=== PATIENT | female | born 1950 | race Caucasian/White ===

== ENCOUNTER 2019-03-15 11:45 | Inpatient (IN) | payer MEDICARE, OTHER ==
[~2019-03-15] VITALS: Ht 165.1 cm; Wt 111.5 kg
[~2019-03-15 11:45] MED LIST: ADV50250 IH; ALBU6.7H9 INH; ALLO100T PO; ASPI-1265 PO; ATOR40TA PO; BENA1TAB14 PO; CALC600T12 PO; ESOM40CA PO; FENO200C PO; FEXO-124 PO; FLUT16SP10; FURO-150 PO; HYDROCODONE PO; INSU100I8 SQ; LANTUS SQ; LEVO75TA PO; MONT10TA21 PO; MULT-1085 PO; POTA10TA10 PO; TETR15DR84 EACHEYE; VITC500T PO
[2019-03-15 12:34] LABS: BASOPHILS % (AUTO) 0.3 % (0-1); EOSINOPHILS % (AUTO) 0.6 % (0-6); HEMATOCRIT 44.5 % (35.0-45.0); HEMOGLOBIN 15.3 g/dl (12.0-16.0); LYMPHOCYTES # (AUTO) 2.1 X10'3 (1.1-4.8); LYMPHOCYTES % (AUTO) 28.7 % (21-51); MEAN CORPUSCULAR HEMOGLOBIN 32.3 PG (27.0-31.0); MEAN CORPUSCULAR HGB CONC 34.3 g/dL (33.0-36.5); MEAN CORPUSCULAR VOLUME 94.2 FL (78-98); MEAN PLATELET VOLUME 6.9 FL (7.4-10.4); MONOCYTES # (AUTO) 0.7 X10'3 (0-0.9); NEUTROPHILS # (AUTO) 4.6 X10'3 (1.8-7.7); NEUTROPHILS % (AUTO) 61.4 % (42-75); PLATELET COUNT 594 X10'3 (140-440); RED BLOOD COUNT 4.72 X10'6 (4.20-5.60); RED CELL DISTRIBUTION WIDTH 14.4 % (11.5-14.5); WHITE BLOOD COUNT 7.5 X10'3 (4.5-11.0)
[2019-03-15 12:47] LABS: ALANINE AMINOTRANSFERASE 24 U/L (12-78); ALBUMIN 3.5 G/DL (3.4-5.0); ALBUMIN/GLOBULIN RATIO 0.9 (1.1-1.5); ALKALINE PHOSPHATASE 86 IU/L (46-116); ANION GAP 11 (8-16); ASPARTATE AMINO TRANSFERASE 17 U/L (10-37); BLOOD UREA NITROGEN 41 MG/DL (7-18); BUN/CREATININE RATIO 19.1 (6.6-38.0); CALCIUM 10.2 MG/DL (8.5-10.1); CHLORIDE 98 MMOL/L (99-107); CREATININE 2.15 MG/DL (0.40-0.90); GLUCOSE 250 MG/DL (70-104); LIPASE 180 U/L (73-393); POTASSIUM 5.4 MMOL/L (3.5-5.1); SODIUM 131 MMOL/L (135-145); TOTAL PROTEIN 7.6 G/DL (6.4-8.2); eGFR 23 ML/MIN
[2019-03-15] MEDS ORDERED: normal saline 1000ml 1,000 ML IV ONE (14:20)
[2019-03-15] MEDS ORDERED: ondansetron/PF 4mg/2ml inj IV ONE (14:20)
[2019-03-15 17:45] LABS: PARTIAL THROMBOPLASTIN TIME 23 SECONDS (22-32)
[2019-03-15] MEDS ORDERED: potassium Cl 20 mEq SR tablet PO PRN ×2 (18:25)
[2019-03-15] MEDS ORDERED: magnesium 2GM in 50ml NS 50 ML IV PRN (18:25)
[2019-03-15] MEDS ORDERED: magnesium Cl slow-release 64mg tablet PO PRN (18:25)
[2019-03-15] MEDS ORDERED: potassium CL 10mEq/100ml bag 100 ML IV PRN ×2 (18:25)
[2019-03-15] MEDS ORDERED: mag hydrox/Alum hydrox/simeth 30ml oral suspension PO PRN (18:25)
[2019-03-15] MEDS ORDERED: HYDROmorphone 1 mg/ml syringe IV PRN (18:25)
[2019-03-15] MEDS ORDERED: magnesium 4gm in 100ml NS 100 ML IV PRN (18:25)
[2019-03-15] MEDS ORDERED: magnesium hydroxide 30ml (MOM) UD suspension PO PRN (18:25)
[2019-03-15] MEDS ORDERED: acetaminophen 325mg tablet PO PRN (18:25)
[2019-03-15] MEDS ORDERED: bisacodyl 10mg suppository rectal RC PRN (18:25)
[2019-03-15] MEDS ORDERED: CALC1TAB41 PO (18:36)
[2019-03-15] MEDS: ringers solution, lacted 1,000 ML IV SCH (18:44)
--- NOTE | 2019-03-15 19:05 | NUR ---
PER PATIENT DR POSADAS STATED NO NASAL GASTRIC TUBE INSERTION IS NEEDED AT THIS TIME.
[2019-03-15] MEDS ORDERED: DULA0.75 SQ (19:08)
[2019-03-15] MEDS ORDERED: CARB15DR2 EACHEYE (19:09)
[2019-03-15] MEDS ORDERED: KETO5DRO75 EACHEYE (19:10)
[2019-03-15] MEDS ORDERED: PANT40TA4 PO (19:15)
[2019-03-15] MEDS: hydrALAZINE 20mg/ml inj. IV SCH (20:00)
[2019-03-15 20:30] VITALS: BP 144/75
[2019-03-15] MEDS ORDERED: temazepam 15mg capsule PO PRN (21:00)
[2019-03-15 22:00] VITALS: BP 135/76
[2019-03-15] MEDS: ondansetron/PF 4mg/2ml inj IV PRN (22:29)
[2019-03-15] MEDS: HYDROmorphone inj. 0.5 MG/0.5 ML DISP.SYRIN IV PRN (22:41)
[2019-03-15] MEDS ORDERED: MESSAGE TO PHARMACY PO ONE (23:15)
[2019-03-15] MEDS ORDERED: dextrose 50%-water 50ml dispensing syringe IV PRN ×2 (23:15)
[2019-03-15] MEDS ORDERED: dextrose ORAL solution 15 GM/59 ML bottle PO PRN ×2 (23:15)
[2019-03-15] MEDS ORDERED: glucagon, human recombinant 1mg kit SUBCUT PRN (23:15)
[2019-03-16 02:00] VITALS: BP 120/73
[2019-03-16] MEDS: hydrALAZINE 20mg/ml inj. IV SCH ×4 (02:00→20:00)
[2019-03-16] MEDS: ondansetron/PF 4mg/2ml inj IV PRN ×3 (05:01→19:37)
[2019-03-16] MEDS: ringers solution, lacted 1,000 ML IV SCH ×2 (05:11→16:31)
[2019-03-16] MEDS: HYDROmorphone inj. 0.5 MG/0.5 ML DISP.SYRIN IV PRN ×4 (05:15→20:31)
[2019-03-16 06:00] VITALS: BP 117/60
[2019-03-16 06:28] LABS: ALANINE AMINOTRANSFERASE 21 U/L (12-78); ALBUMIN 2.7 G/DL (3.4-5.0); ALBUMIN/GLOBULIN RATIO 0.8 (1.1-1.5); ALKALINE PHOSPHATASE 73 IU/L (46-116); ANION GAP 9 (8-16); ASPARTATE AMINO TRANSFERASE 22 U/L (10-37); BILIRUBIN,TOTAL 0.9 MG/DL (0.1-1.0); BLOOD UREA NITROGEN 32 MG/DL (7-18); BUN/CREATININE RATIO 22.2 (6.6-38.0); CALCIUM 9.1 MG/DL (8.5-10.1); CHLORIDE 101 MMOL/L (99-107); CREATININE 1.44 MG/DL (0.40-0.90); GLUCOSE 222 MG/DL (70-104); MAGNESIUM 1.5 MG/DL (1.5-2.4); PHOSPHORUS 2.9 MG/DL (2.3-4.5); POTASSIUM 5.1 MMOL/L (3.5-5.1); SODIUM 132 MMOL/L (135-145); TOTAL CARBON DIOXIDE 22.3 MMOL/L (24-32); TOTAL PROTEIN 5.9 G/DL (6.4-8.2); eGFR 36 ML/MIN
[2019-03-16 06:32] LABS: BASOPHILS % (AUTO) 0.3 % (0-1); EOSINOPHILS # (AUTO) 0.1 X10'3 (0-0.9); EOSINOPHILS % (AUTO) 1.3 % (0-6); HEMATOCRIT 37.8 % (35.0-45.0); HEMOGLOBIN 13.1 g/dl (12.0-16.0); LYMPHOCYTES % (AUTO) 31.3 % (21-51); MEAN CORPUSCULAR HEMOGLOBIN 32.4 PG (27.0-31.0); MEAN CORPUSCULAR HGB CONC 34.8 g/dL (33.0-36.5); MEAN CORPUSCULAR VOLUME 93.2 FL (78-98); MEAN PLATELET VOLUME 7.1 FL (7.4-10.4); MONOCYTES # (AUTO) 0.6 X10'3 (0-0.9); MONOCYTES % (AUTO) 9.4 % (2-12); NEUTROPHILS # (AUTO) 3.7 X10'3 (1.8-7.7); NEUTROPHILS % (AUTO) 57.7 % (42-75); PLATELET COUNT 427 X10'3 (140-440); RED BLOOD COUNT 4.05 X10'6 (4.20-5.60); RED CELL DISTRIBUTION WIDTH 14.4 % (11.5-14.5); WHITE BLOOD COUNT 6.5 X10'3 (4.5-11.0)
[2019-03-16 06:59] LABS: HEMOGLOBIN A1C 7.9 % (4.5-6.2)
--- NOTE | 2019-03-16 07:11 | NUR ---
Patient in room ORTHO 4014. I have received report from Alexus STONE and had the opportunity to ask questions and assume patient care.
[2019-03-16 08:00] VITALS: BP 113/66
[2019-03-16] MEDS: K and/or MAG REPLACEMENT MC SCH (08:00)
[2019-03-16] MEDS: pantoprazole 40 MG vial IV SCH (08:14)
--- NOTE | 2019-03-16 08:30 | NUR ---
PAGED RESP TO COME AND GIVE RESP TREATMENT
[2019-03-16] MEDS: albuterol 2.5 MG/3 ML nebule NEB SCH ×3 (08:36→19:48)
[2019-03-16] MEDS: budesonide 0.5mg/2ml UD nebule IH SCH ×2 (08:36→19:48)
[2019-03-16] MEDS: insulin Lispro (HumaLOG) vial - multi-dose SQ SCH ×3 (08:50→21:25)
[2019-03-16 09:33] VITALS: BP 120/62
--- NOTE | 2019-03-16 10:36 | NUR ---
Student documentation: I have reviewed all interventions, assessments performed and documented by Manolo Liz. Student Medication Administration: For this medication-pass time frame, all medication were reviewed, dispensed, administered and documented per hospital policy by Manolo Liz.
--- NOTE | 2019-03-16 12:36 | NUR ---
I have reviewed and agree with all medications administered and interventions performed by [facility] Student(SKYLA PEDRAZA)
[2019-03-16 13:34] VITALS: BP 115/65
--- NOTE | 2019-03-16 17:09 | NUR ---
Patient given written DM education handout with verbal review and referral to outpatient DM education class on Wednesday. Pt given written RD contact information. Addendum: 03/16/19 at [address] Amended: Links added.
--- NOTE | 2019-03-16 18:22 | NUR ---
Problems reprioritized. Patient report given, questions answered & plan of care reviewed with Jeffrey STONE.
--- NOTE | 2019-03-16 19:00 | NUR ---
Patient in room ORTHO 4014. I have received report from Travis STONE and had the opportunity to ask questions and assume patient care.
[2019-03-17] MEDS: ringers solution, lacted 1,000 ML IV SCH ×3 (00:30→20:30)
[2019-03-17] MEDS: hydrALAZINE 20mg/ml inj. IV SCH ×4 (02:00→20:28)
[2019-03-17] MEDS: albuterol 2.5 MG/3 ML nebule NEB SCH ×3 (03:46→19:55)
[2019-03-17] MEDS: ondansetron/PF 4mg/2ml inj IV PRN ×2 (04:06→12:03)
[2019-03-17] MEDS: HYDROmorphone inj. 0.5 MG/0.5 ML DISP.SYRIN IV PRN ×4 (04:09→17:11)
[2019-03-17 05:52] LABS: BASOPHILS % (AUTO) 0.6 % (0-1); EOSINOPHILS # (AUTO) 0.1 X10'3 (0-0.9); EOSINOPHILS % (AUTO) 1.2 % (0-6); HEMATOCRIT 36.5 % (35.0-45.0); HEMOGLOBIN 12.8 g/dl (12.0-16.0); LYMPHOCYTES # (AUTO) 1.7 X10'3 (1.1-4.8); LYMPHOCYTES % (AUTO) 30.1 % (21-51); MEAN CORPUSCULAR HEMOGLOBIN 32.8 PG (27.0-31.0); MEAN CORPUSCULAR HGB CONC 35.1 g/dL (33.0-36.5); MEAN CORPUSCULAR VOLUME 93.5 FL (78-98); MEAN PLATELET VOLUME 6.8 FL (7.4-10.4); MONOCYTES # (AUTO) 0.6 X10'3 (0-0.9); MONOCYTES % (AUTO) 11.4 % (2-12); NEUTROPHILS # (AUTO) 3.2 X10'3 (1.8-7.7); NEUTROPHILS % (AUTO) 56.7 % (42-75); PLATELET COUNT 441 X10'3 (140-440); RED BLOOD COUNT 3.91 X10'6 (4.20-5.60); RED CELL DISTRIBUTION WIDTH 14.3 % (11.5-14.5); WHITE BLOOD COUNT 5.7 X10'3 (4.5-11.0)
[2019-03-17 05:53] LABS: ALANINE AMINOTRANSFERASE 21 U/L (12-78); ALBUMIN 2.7 G/DL (3.4-5.0); ALBUMIN/GLOBULIN RATIO 0.8 (1.1-1.5); ALKALINE PHOSPHATASE 77 IU/L (46-116); ANION GAP 9 (8-16); ASPARTATE AMINO TRANSFERASE 23 U/L (10-37); BILIRUBIN,TOTAL 0.6 MG/DL (0.1-1.0); BLOOD UREA NITROGEN 29 MG/DL (7-18); BUN/CREATININE RATIO 20.6 (6.6-38.0); CALCIUM 8.8 MG/DL (8.5-10.1); CHLORIDE 102 MMOL/L (99-107); CREATININE 1.41 MG/DL (0.40-0.90); GLUCOSE 141 MG/DL (70-104); MAGNESIUM 1.5 MG/DL (1.5-2.4); PHOSPHORUS 3.7 MG/DL (2.3-4.5); POTASSIUM 4.7 MMOL/L (3.5-5.1); SODIUM 134 MMOL/L (135-145); TOTAL CARBON DIOXIDE 22.8 MMOL/L (24-32); TOTAL PROTEIN 5.9 G/DL (6.4-8.2); eGFR 37 ML/MIN
[2019-03-17 06:10] VITALS: BP 124/68
--- NOTE | 2019-03-17 06:30 | NUR ---
I received patient report from Jeffrey STONE
[2019-03-17] MEDS: K and/or MAG REPLACEMENT MC SCH (08:00)
[2019-03-17] MEDS: insulin Lispro (HumaLOG) vial - multi-dose SQ SCH ×3 (08:40→17:21)
[2019-03-17] MEDS: metoclopramide 5 mg/ml inj IV PRN ×2 (08:46→17:10)
[2019-03-17] MEDS: pantoprazole 40 MG vial IV SCH (08:59)
[2019-03-17] MEDS: budesonide 0.5mg/2ml UD nebule IH SCH ×2 (09:21→19:55)
[2019-03-17 10:00] VITALS: BP 121/52
[2019-03-17] MEDS ORDERED: diatrozoate meglu/diatrozoate sod (37% iodine) 120ML oral solution ONE (11:17)
[2019-03-17 18:00] VITALS: BP 137/68
--- NOTE | 2019-03-17 18:29 | NUR ---
Patient report given to Jeffrey STONE
--- NOTE | 2019-03-17 19:00 | NUR ---
Patient in room ORTHO 4014. I have received report from Ann-Marie STONE and had the opportunity to ask questions and assume patient care.
[2019-03-17 22:00] VITALS: BP 96/76
[2019-03-18] VITALS (10 sets, daily range): BP systolic 96–169; BP diastolic 40–97
[2019-03-18] MEDS: ondansetron/PF 4mg/2ml inj IV PRN ×2 (00:45→07:43)
[2019-03-18] MEDS: HYDROmorphone inj. 0.5 MG/0.5 ML DISP.SYRIN IV PRN ×4 (00:48→19:13)
[2019-03-18] MEDS: albuterol 2.5 MG/3 ML nebule NEB SCH ×4 (01:51→19:20)
[2019-03-18] MEDS: hydrALAZINE 20mg/ml inj. IV SCH ×4 (02:00→19:56)
[2019-03-18 06:26] LABS: BASOPHILS % (AUTO) 0.5 % (0-1); HEMATOCRIT 35.9 % (35.0-45.0); HEMOGLOBIN 12.5 g/dl (12.0-16.0); LYMPHOCYTES # (AUTO) 1.2 X10'3 (1.1-4.8); LYMPHOCYTES % (AUTO) 30.4 % (21-51); MEAN CORPUSCULAR HEMOGLOBIN 32.8 PG (27.0-31.0); MEAN CORPUSCULAR HGB CONC 34.7 g/dL (33.0-36.5); MEAN CORPUSCULAR VOLUME 94.7 FL (78-98); MEAN PLATELET VOLUME 6.9 FL (7.4-10.4); MONOCYTES # (AUTO) 0.5 X10'3 (0-0.9); MONOCYTES % (AUTO) 12.4 % (2-12); NEUTROPHILS # (AUTO) 2.2 X10'3 (1.8-7.7); NEUTROPHILS % (AUTO) 55.7 % (42-75); PLATELET COUNT 386 X10'3 (140-440); RED CELL DISTRIBUTION WIDTH 14.4 % (11.5-14.5); WHITE BLOOD COUNT 3.9 X10'3 (4.5-11.0)
--- NOTE | 2019-03-18 06:30 | NUR ---
Patient in room ORTHO 4014. I have received report from Jeffrey STONE and had the opportunity to ask questions and assume patient care.
[2019-03-18 06:43] LABS: ALANINE AMINOTRANSFERASE 15 U/L (12-78); ALBUMIN 2.5 G/DL (3.4-5.0); ALBUMIN/GLOBULIN RATIO 0.8 (1.1-1.5); ALKALINE PHOSPHATASE 79 IU/L (46-116); ANION GAP 11 (8-16); ASPARTATE AMINO TRANSFERASE 20 U/L (10-37); BILIRUBIN,TOTAL 0.7 MG/DL (0.1-1.0); BLOOD UREA NITROGEN 26 MG/DL (7-18); CALCIUM 8.7 MG/DL (8.5-10.1); CHLORIDE 102 MMOL/L (99-107); GLUCOSE 167 MG/DL (70-104); MAGNESIUM 1.5 MG/DL (1.5-2.4); PHOSPHORUS 3.5 MG/DL (2.3-4.5); POTASSIUM 4.4 MMOL/L (3.5-5.1); SODIUM 135 MMOL/L (135-145); TOTAL CARBON DIOXIDE 21.8 MMOL/L (24-32); TOTAL PROTEIN 5.7 G/DL (6.4-8.2); eGFR 41 ML/MIN
[2019-03-18] MEDS: budesonide 0.5mg/2ml UD nebule IH SCH ×2 (07:42→19:20)
[2019-03-18] MEDS: ringers solution, lacted 1,000 ML IV SCH ×2 (07:57→19:55)
[2019-03-18] MEDS: K and/or MAG REPLACEMENT MC SCH (08:00)
[2019-03-18] MEDS: pantoprazole 40 MG vial IV SCH (08:00)
[2019-03-18] MEDS ORDERED: mineral oil 133ml enema RC ONE (08:40)
[2019-03-18] MEDS: insulin Lispro (HumaLOG) vial - multi-dose SQ SCH ×3 (09:16→19:29)
[2019-03-18] MEDS: metoclopramide 5 mg/ml inj IV PRN ×2 (12:36→19:13)
[2019-03-18] MEDS ORDERED: mineral oil 133ml enema RC SCH (14:40)
--- NOTE | 2019-03-18 14:42 | NUR ---
Malnutrition consult: Pt seen at bedside reports UBW 235 lbs and reports 20 lb wt loss over the last month. Only wt hx in EMR is 198 lbs in March 2016. If pt truly lost 20 lbs this is severe wt loss of 8% in 1 month. Pt reports wt loss is secondary to N/V and diarrhea. Pt reports some N at this time, receiving Zofran PRN last given today. Unable to assess PO intake at this time given patient's NPO status however pt endorses a good appetite. Pt with no significant decrease in muscle strength or edema and with no visible fat or muscle wasting. Pt currently lacks a minimum of two criteria for malnutrition. Will continue to follow. Addendum: 03/18/19 at [address] Amended: Links added.
[2019-03-18] MEDS ORDERED: fentaNYL/PF 50MCG/1 ML 2ML syringe ONE (16:04)
[2019-03-18] MEDS ORDERED: MIDAZolam 5mg/5ml vial ONE (16:04)
--- NOTE | 2019-03-18 18:51 | NUR ---
Patient report given to Shawnee STONE
--- NOTE | 2019-03-18 19:37 | NUR ---
Patient in room ORTHO 4014. I have received report from BERTHA Wooten and had the opportunity to ask questions and assume patient care.
[2019-03-19] VITALS (7 sets, daily range): BP systolic 113–188; BP diastolic 52–90
[2019-03-19] MEDS: HYDROmorphone inj. 0.5 MG/0.5 ML DISP.SYRIN IV PRN ×6 (02:42→23:51)
[2019-03-19] MEDS: hydrALAZINE 20mg/ml inj. IV SCH ×4 (02:42→19:22)
[2019-03-19] MEDS: metoclopramide 5 mg/ml inj IV PRN ×3 (02:42→23:57)
[2019-03-19] MEDS: ringers solution, lacted 1,000 ML IV SCH (05:25)
--- NOTE | 2019-03-19 06:05 | NUR ---
received report from sharon pimentel
--- NOTE | 2019-03-19 06:30 | NUR ---
Problems reprioritized. Patient report given, questions answered & plan of care reviewed with BERTHA Bravo.
[2019-03-19 06:49] LABS: BASOPHILS % (AUTO) 0.4 % (0-1); EOSINOPHILS % (AUTO) 1.2 % (0-6); HEMATOCRIT 35.5 % (35.0-45.0); HEMOGLOBIN 12.3 g/dl (12.0-16.0); LYMPHOCYTES # (AUTO) 0.8 X10'3 (1.1-4.8); LYMPHOCYTES % (AUTO) 23.5 % (21-51); MEAN CORPUSCULAR HEMOGLOBIN 32.7 PG (27.0-31.0); MEAN CORPUSCULAR HGB CONC 34.5 g/dL (33.0-36.5); MEAN CORPUSCULAR VOLUME 94.6 FL (78-98); MEAN PLATELET VOLUME 7.1 FL (7.4-10.4); MONOCYTES # (AUTO) 0.4 X10'3 (0-0.9); MONOCYTES % (AUTO) 11.7 % (2-12); NEUTROPHILS # (AUTO) 2.1 X10'3 (1.8-7.7); NEUTROPHILS % (AUTO) 63.2 % (42-75); PLATELET COUNT 356 X10'3 (140-440); RED BLOOD COUNT 3.75 X10'6 (4.20-5.60); RED CELL DISTRIBUTION WIDTH 14.6 % (11.5-14.5); WHITE BLOOD COUNT 3.4 X10'3 (4.5-11.0)
[2019-03-19 06:54] LABS: ALANINE AMINOTRANSFERASE 19 U/L (12-78); ALBUMIN 2.3 G/DL (3.4-5.0); ALBUMIN/GLOBULIN RATIO 0.7 (1.1-1.5); ALKALINE PHOSPHATASE 80 IU/L (46-116); ANION GAP 11 (8-16); ASPARTATE AMINO TRANSFERASE 20 U/L (10-37); BILIRUBIN,TOTAL 0.5 MG/DL (0.1-1.0); BLOOD UREA NITROGEN 23 MG/DL (7-18); BUN/CREATININE RATIO 17.8 (6.6-38.0); CALCIUM 8.5 MG/DL (8.5-10.1); CHLORIDE 104 MMOL/L (99-107); CREATININE 1.29 MG/DL (0.40-0.90); GLUCOSE 156 MG/DL (70-104); MAGNESIUM 1.5 MG/DL (1.5-2.4); PHOSPHORUS 3.2 MG/DL (2.3-4.5); POTASSIUM 4.5 MMOL/L (3.5-5.1); SODIUM 135 MMOL/L (135-145); TOTAL CARBON DIOXIDE 19.6 MMOL/L (24-32); TOTAL PROTEIN 5.5 G/DL (6.4-8.2); eGFR 41 ML/MIN
[2019-03-19] MEDS: K and/or MAG REPLACEMENT MC SCH (07:05)
[2019-03-19] MEDS: enoxaparin 30mg/0.3ml syringe SUBCUT SCH ×2 (07:06→09:01)
[2019-03-19] MEDS: pantoprazole 40 MG vial IV SCH (07:44)
[2019-03-19] MEDS: insulin Lispro (HumaLOG) vial - multi-dose SQ SCH ×3 (08:59→19:38)
[2019-03-19] MEDS: albuterol 2.5 MG/3 ML nebule NEB SCH (09:05)
[2019-03-19] MEDS: budesonide 0.5mg/2ml UD nebule IH SCH ×2 (09:06→20:35)
[2019-03-19] MEDS ORDERED: PEG 3350/Na sulf,bicarb,Cl/KCl oral sol 4 liter bottle PO ONE (09:50)
[2019-03-19] MEDS: normal saline 1000ml 1,000 ML IV SCH (14:51)
[2019-03-19] MEDS: levalbuterol 0.63mg/3ml nebule IH SCH ×2 (16:18→20:35)
--- NOTE | 2019-03-19 18:31 | NUR ---
gave report to sharon bazan
--- NOTE | 2019-03-19 18:35 | NUR ---
Patient in room ORTHO 4014. I have received report from Shelly STONE and had the opportunity to ask questions and assume patient care.
[2019-03-19] MEDS: ondansetron/PF 4mg/2ml inj IV PRN (20:07)
[2019-03-20] MEDS: normal saline 1000ml 1,000 ML IV SCH ×4 (01:19→21:14)
[2019-03-20 01:23] VITALS: BP_SYST 123; BP_SYST 124; BP_DIAS 48; BP_DIAS 57
[2019-03-20] MEDS: hydrALAZINE 20mg/ml inj. IV SCH ×4 (01:23→19:05)
[2019-03-20] MEDS: levalbuterol 0.63mg/3ml nebule IH SCH ×4 (02:24→22:20)
[2019-03-20] MEDS: HYDROmorphone inj. 0.5 MG/0.5 ML DISP.SYRIN IV PRN ×3 (05:15→19:14)
--- NOTE | 2019-03-20 06:23 | NUR ---
Problems reprioritized. Patient report given, questions answered & plan of care reviewed with Radha STONE and Odalys STONE.
[2019-03-20 06:43] LABS: BASOPHILS % (AUTO) 0.5 % (0-1); EOSINOPHILS # (AUTO) 0.1 X10'3 (0-0.9); EOSINOPHILS % (AUTO) 1.2 % (0-6); HEMATOCRIT 36.1 % (35.0-45.0); HEMOGLOBIN 12.4 g/dl (12.0-16.0); LYMPHOCYTES # (AUTO) 1.4 X10'3 (1.1-4.8); LYMPHOCYTES % (AUTO) 32.8 % (21-51); MEAN CORPUSCULAR HEMOGLOBIN 32.5 PG (27.0-31.0); MEAN CORPUSCULAR HGB CONC 34.3 g/dL (33.0-36.5); MEAN CORPUSCULAR VOLUME 94.9 FL (78-98); MEAN PLATELET VOLUME 7.2 FL (7.4-10.4); MONOCYTES # (AUTO) 0.6 X10'3 (0-0.9); MONOCYTES % (AUTO) 14.3 % (2-12); NEUTROPHILS # (AUTO) 2.2 X10'3 (1.8-7.7); NEUTROPHILS % (AUTO) 51.2 % (42-75); PLATELET COUNT 417 X10'3 (140-440); RED CELL DISTRIBUTION WIDTH 14.7 % (11.5-14.5); WHITE BLOOD COUNT 4.3 X10'3 (4.5-11.0)
[2019-03-20 06:44] VITALS: BP 149/66
--- NOTE | 2019-03-20 06:46 | NUR ---
Patient in room ORTHO 4014. I have received report from Jacqui STONE and had the opportunity to ask questions and assume patient care.
--- NOTE | 2019-03-20 06:47 | NUR ---
Patient in room ORTHO 4014. I have received report from Jacqui STONE and had the opportunity to ask questions and assume patient care.
[2019-03-20 07:05] LABS: ALANINE AMINOTRANSFERASE 35 U/L (12-78); ALBUMIN 2.4 G/DL (3.4-5.0); ALBUMIN/GLOBULIN RATIO 0.7 (1.1-1.5); ALKALINE PHOSPHATASE 81 IU/L (46-116); ANION GAP 13 (8-16); ASPARTATE AMINO TRANSFERASE 27 U/L (10-37); BILIRUBIN,TOTAL 0.5 MG/DL (0.1-1.0); BLOOD UREA NITROGEN 21 MG/DL (7-18); BUN/CREATININE RATIO 14.1 (6.6-38.0); CALCIUM 8.3 MG/DL (8.5-10.1); CHLORIDE 102 MMOL/L (99-107); CREATININE 1.49 MG/DL (0.40-0.90); GLUCOSE 139 MG/DL (70-104); MAGNESIUM 1.4 MG/DL (1.5-2.4); PHOSPHORUS 3.1 MG/DL (2.3-4.5); POTASSIUM 3.9 MMOL/L (3.5-5.1); SODIUM 134 MMOL/L (135-145); TOTAL PROTEIN 5.7 G/DL (6.4-8.2); eGFR 35 ML/MIN
[2019-03-20] MEDS: pantoprazole 40 MG vial IV SCH (07:20)
[2019-03-20] MEDS: enoxaparin 30mg/0.3ml syringe SUBCUT SCH (07:30)
[2019-03-20] MEDS: budesonide 0.5mg/2ml UD nebule IH SCH ×2 (07:53→22:20)
[2019-03-20] MEDS: K and/or MAG REPLACEMENT MC SCH (08:00)
[2019-03-20] MEDS: insulin Lispro (HumaLOG) vial - multi-dose SQ SCH ×3 (08:57→18:57)
[2019-03-20] MEDS ORDERED: potassium Cl 20 mEq SR tablet PO PRN ×2 (09:20)
[2019-03-20] MEDS ORDERED: magnesium 4gm in 100ml NS 100 ML IV PRN (09:20)
[2019-03-20] MEDS: ondansetron/PF 4mg/2ml inj IV PRN ×2 (09:38→18:30)
[2019-03-20] MEDS: magnesium Cl slow-release 64mg tablet PO PRN ×2 (09:40→21:40)
[2019-03-20 11:00] VITALS: BP 140/74
[2019-03-20] MEDS: metoclopramide 5 mg/ml inj IV PRN ×2 (12:26→21:42)
[2019-03-20] MEDS: nystatin 15 GM powder TP SCH ×2 (14:19→21:14)
--- NOTE | 2019-03-20 16:40 | NUR ---
Initial: Patient admitted with SBO, per recent surgeon note patient has a sigmoid colon mass or obstruction possibly malignant or scar tissue causing near complete obstruction. Pending possible elective surgery on wednesday. Per MD note, bowel prep has been started to see if patient has BM, if no BM may go to the surgery for colectomy. Currently with clear liquid diet day 5. If expected to be NPO for longer than 7 days patient may benefit from TPN to meet nutrition needs. Recommend: 1. Advance diet as medically indicated to carb controlled when SBO obstruction is resolved 2. If SBO does not resolve and patient to have surgery with expected NPO >7 days would benefit from TPN to meet nutrition needs 3. Weight per rx Addendum: 03/20/19 at [address] Amended: Links added.
[2019-03-20 18:00] VITALS: BP 131/69
--- NOTE | 2019-03-20 18:04 | NUR ---
Patient had shower today up with PT, medicated with dilaudid x2. Call from Telemetry per madisyn Charge nurse, patient HR 120. patient was showering at this time. Repeat test HR 110, patient otherwise asymptomatic . patient continues with Golytely, nauseas at times medicated with reglan and Zofran with effect. BM x2 loose. Seen by Dr Yusuf.
--- NOTE | 2019-03-20 18:30 | NUR ---
Problems reprioritized. Patient report given, questions answered & plan of care reviewed with Jacqui Clement.
[2019-03-20 19:00] VITALS: BP 142/79
[2019-03-20 22:00] VITALS: BP 150/70
[2019-03-21] MEDS: hydrALAZINE 20mg/ml inj. IV SCH ×4 (02:00→19:29)
[2019-03-21 02:21] VITALS: BP 117/68
[2019-03-21] MEDS: ondansetron/PF 4mg/2ml inj IV PRN ×3 (02:55→15:23)
[2019-03-21] MEDS: HYDROmorphone inj. 0.5 MG/0.5 ML DISP.SYRIN IV PRN ×4 (02:55→18:48)
[2019-03-21] MEDS: levalbuterol 0.63mg/3ml nebule IH SCH ×4 (03:01→20:58)
[2019-03-21] MEDS: normal saline 1000ml 1,000 ML IV SCH ×3 (05:34→22:09)
[2019-03-21] MEDS: metoclopramide 5 mg/ml inj IV PRN ×3 (05:37→18:47)
[2019-03-21 05:45] LABS: BASOPHILS % (AUTO) 0.5 % (0-1); EOSINOPHILS % (AUTO) 1.1 % (0-6); HEMATOCRIT 34.8 % (35.0-45.0); HEMOGLOBIN 12.1 g/dl (12.0-16.0); LYMPHOCYTES # (AUTO) 1.2 X10'3 (1.1-4.8); LYMPHOCYTES % (AUTO) 31.7 % (21-51); MEAN CORPUSCULAR HEMOGLOBIN 32.6 PG (27.0-31.0); MEAN CORPUSCULAR HGB CONC 34.8 g/dL (33.0-36.5); MEAN CORPUSCULAR VOLUME 93.6 FL (78-98); MEAN PLATELET VOLUME 6.8 FL (7.4-10.4); MONOCYTES # (AUTO) 0.5 X10'3 (0-0.9); MONOCYTES % (AUTO) 13.7 % (2-12); PLATELET COUNT 370 X10'3 (140-440); RED BLOOD COUNT 3.71 X10'6 (4.20-5.60); RED CELL DISTRIBUTION WIDTH 14.6 % (11.5-14.5); WHITE BLOOD COUNT 3.7 X10'3 (4.5-11.0)
[2019-03-21 06:10] LABS: ALANINE AMINOTRANSFERASE 20 U/L (12-78); ALBUMIN 2.3 G/DL (3.4-5.0); ALBUMIN/GLOBULIN RATIO 0.7 (1.1-1.5); ALKALINE PHOSPHATASE 80 IU/L (46-116); ANION GAP 13 (8-16); ASPARTATE AMINO TRANSFERASE 19 U/L (10-37); BILIRUBIN,TOTAL 0.5 MG/DL (0.1-1.0); BLOOD UREA NITROGEN 21 MG/DL (7-18); BUN/CREATININE RATIO 17.4 (6.6-38.0); CALCIUM 8.5 MG/DL (8.5-10.1); CHLORIDE 103 MMOL/L (99-107); CREATININE 1.21 MG/DL (0.40-0.90); GLUCOSE 144 MG/DL (70-104); MAGNESIUM 1.4 MG/DL (1.5-2.4); POTASSIUM 3.7 MMOL/L (3.5-5.1); SODIUM 135 MMOL/L (135-145); TOTAL CARBON DIOXIDE 18.9 MMOL/L (24-32); TOTAL PROTEIN 5.5 G/DL (6.4-8.2); eGFR 45 ML/MIN
--- NOTE | 2019-03-21 06:50 | NUR ---
Patient in room ORTHO 4014. I have received report from BERTHA Osman and had the opportunity to ask questions and assume patient care.
--- NOTE | 2019-03-21 07:05 | NUR ---
Problems reprioritized. Patient report given, questions answered & plan of care reviewed with Violeta RN.
[2019-03-21] MEDS: K and/or MAG REPLACEMENT MC SCH (07:46)
[2019-03-21 07:52] VITALS: BP 143/59
[2019-03-21] MEDS: budesonide 0.5mg/2ml UD nebule IH SCH ×2 (08:00→20:58)
--- NOTE | 2019-03-21 08:15 | NUR ---
void was brownish yellow, with strong odor. Addendum: 03/21/19 at 0837 by Yudelka BRAGA Amended: Links added.
[2019-03-21] MEDS: pantoprazole 40 MG vial IV SCH (09:18)
[2019-03-21] MEDS: enoxaparin 30mg/0.3ml syringe SUBCUT SCH (09:19)
[2019-03-21] MEDS: magnesium Cl slow-release 64mg tablet PO PRN ×2 (09:19→17:49)
[2019-03-21] MEDS: nystatin 15 GM powder TP SCH ×3 (09:20→21:30)
[2019-03-21] MEDS: insulin Lispro (HumaLOG) vial - multi-dose SQ SCH (09:23)
[2019-03-21 10:00] VITALS: BP 121/54
--- NOTE | 2019-03-21 11:47 | NUR ---
Student Medication Administration:For this medication-pass time frame [id number], all medications were reviewed, administered and documented per hospital policy by Yudelka Raymundo. Student documentation:I have reviewed and agree with all interventions, assessments performed and documented by Yudelka Raymundo.
--- NOTE | 2019-03-21 13:12 | NUR ---
Dr. Chan requested pt be transferred to 3-Surgical. Ns Cushion Gum Applicator notified, stating pt's requesting to stay on Ortho/Neuro unit at this time.
[2019-03-21] MEDS: levoTHYROXINE 75mcg tablet PO SCH (14:34)
--- NOTE | 2019-03-21 18:10 | NUR ---
Problems reprioritized. Patient report given, questions answered & plan of care reviewed with BERTHA Contreras.
[2019-03-21 18:50] VITALS: BP 142/73
[2019-03-22] VITALS (15 sets, daily range): BP systolic 92–146; BP diastolic 48–75
[2019-03-22] MEDS: hydrALAZINE 20mg/ml inj. IV SCH ×4 (02:00→20:00)
[2019-03-22] MEDS: levalbuterol 0.63mg/3ml nebule IH SCH ×4 (02:46→21:18)
[2019-03-22] MEDS: ondansetron/PF 4mg/2ml inj IV PRN ×2 (03:08→09:16)
[2019-03-22] MEDS: HYDROmorphone inj. 0.5 MG/0.5 ML DISP.SYRIN IV PRN ×4 (03:09→21:37)
[2019-03-22] MEDS: normal saline 1000ml 1,000 ML IV SCH ×3 (05:17→22:42)
[2019-03-22 05:58] LABS: BASOPHILS % (AUTO) 0.3 % (0-1); EOSINOPHILS % (AUTO) 0.7 % (0-6); HEMATOCRIT 37.5 % (35.0-45.0); HEMOGLOBIN 12.8 g/dl (12.0-16.0); LYMPHOCYTES # (AUTO) 1.3 X10'3 (1.1-4.8); LYMPHOCYTES % (AUTO) 30.4 % (21-51); MEAN CORPUSCULAR HEMOGLOBIN 32.5 PG (27.0-31.0); MEAN CORPUSCULAR HGB CONC 34.3 g/dL (33.0-36.5); MEAN CORPUSCULAR VOLUME 94.9 FL (78-98); MEAN PLATELET VOLUME 7.5 FL (7.4-10.4); MONOCYTES # (AUTO) 0.6 X10'3 (0-0.9); MONOCYTES % (AUTO) 13.8 % (2-12); NEUTROPHILS # (AUTO) 2.4 X10'3 (1.8-7.7); NEUTROPHILS % (AUTO) 54.8 % (42-75); PLATELET COUNT 424 X10'3 (140-440); RED BLOOD COUNT 3.95 X10'6 (4.20-5.60); RED CELL DISTRIBUTION WIDTH 14.8 % (11.5-14.5); WHITE BLOOD COUNT 4.4 X10'3 (4.5-11.0)
[2019-03-22 06:06] LABS: ALANINE AMINOTRANSFERASE 22 U/L (12-78); ALBUMIN 2.3 G/DL (3.4-5.0); ALBUMIN/GLOBULIN RATIO 0.7 (1.1-1.5); ALKALINE PHOSPHATASE 82 IU/L (46-116); ANION GAP 15 (8-16); ASPARTATE AMINO TRANSFERASE 22 U/L (10-37); BILIRUBIN,TOTAL 0.5 MG/DL (0.1-1.0); BLOOD UREA NITROGEN 20 MG/DL (7-18); BUN/CREATININE RATIO 17.4 (6.6-38.0); CALCIUM 8.4 MG/DL (8.5-10.1); CHLORIDE 105 MMOL/L (99-107); CREATININE 1.15 MG/DL (0.40-0.90); GLUCOSE 148 MG/DL (70-104); MAGNESIUM 1.5 MG/DL (1.5-2.4); SODIUM 135 MMOL/L (135-145); TOTAL CARBON DIOXIDE 15.5 MMOL/L (24-32); TOTAL PROTEIN 5.6 G/DL (6.4-8.2); eGFR 47 ML/MIN
[2019-03-22 06:07] LABS: POTASSIUM 3.4 MMOL/L (3.5-5.1)
--- NOTE | 2019-03-22 06:35 | NUR ---
Problems reprioritized. Patient report given, questions answered & plan of care reviewed with KOKI. Addendum: 03/22/19 at 0635 by Bigg Rob RN Amended: Links added.
[2019-03-22] MEDS: levoTHYROXINE 75mcg tablet PO SCH (07:00)
--- NOTE | 2019-03-22 07:24 | NUR ---
Patient in room ORTHO 4014. I have received report from Ben and had the opportunity to ask questions and assume patient care.
[2019-03-22] MEDS: nystatin 15 GM powder TP SCH ×3 (07:46→21:00)
[2019-03-22] MEDS: pantoprazole 40 MG vial IV SCH (07:46)
[2019-03-22] MEDS: K and/or MAG REPLACEMENT MC SCH (08:00)
[2019-03-22] MEDS: enoxaparin 30mg/0.3ml syringe SUBCUT SCH (08:00)
[2019-03-22] MEDS: budesonide 0.5mg/2ml UD nebule IH SCH ×2 (09:13→21:18)
--- NOTE | 2019-03-22 14:32 | NUR ---
Problems reprioritized. Patient report given, questions answered & plan of care reviewed with Nestor in pre-op, OR charge aware as well.
[2019-03-22] MEDS ORDERED: BUPIVAcaine/PF 2.5 mg/ml (0.25%) 30ml vial ONE (15:06)
[2019-03-22] MEDS ORDERED: ceFAZolin 1000mg inj ONE (15:06)
[2019-03-22] MEDS ORDERED: iohexol 300 MG/1 ML 50ml polymer ONE (15:06)
[2019-03-22] MEDS ORDERED: ringers solution, lacted 1,000 ML IV SCH (15:12)
[2019-03-22] MEDS ORDERED: ondansetron/PF 4mg/2ml inj IV PRN (15:15)
[2019-03-22] MEDS ORDERED: proCHLORperazine 10 MG/2 ml inj IV PRN (15:15)
[2019-03-22] MEDS ORDERED: morphine 4 MG/ML inj SYRINge IV PRN ×2 (15:15)
[2019-03-22] MEDS ORDERED: meperidine/PF 25mg/ml syringe IV PRN ×3 (15:15)
[2019-03-22] MEDS ORDERED: ceFOXitin 2 GM ADDVANTGE BAG 50 ML IV ONE (15:35)
[2019-03-22] MEDS ORDERED: sevoflurane 250ml liquid IH ONE (15:46)
[2019-03-22] MEDS ORDERED: DOPamine/D5W 400mg/250ml bag IV ONE (15:46)
[2019-03-22] MEDS ORDERED: midazolam 2 mg/2 ml injection ONE (15:47)
[2019-03-22] MEDS ORDERED: fentaNYL /PF 50mcg/ml 5ml ampule ONE (15:47)
--- NOTE | 2019-03-22 16:42 | NUR ---
Problems reprioritized. Patient report given, questions answered & plan of care reviewed with
[2019-03-22] MEDS ORDERED: succinylcholine 20mg/ml inj IV ONE (17:22)
[2019-03-22] MEDS ORDERED: LIDOcaine 2% (20mg/ml) 5ml vial ONE (17:22)
[2019-03-22] MEDS ORDERED: propofol inj 20 ML IV ONE (17:22)
[2019-03-22] MEDS ORDERED: phenylephrine 10mg/ml inj. ONE (17:22)
[2019-03-22] MEDS ORDERED: rocuronium 10mg/ml inj IV ONE ×2 (17:22→17:34)
--- NOTE | 2019-03-22 18:14 | NUR ---
Reassessment: Patient has very poor PO intake for 8 days with clear liquids, pending surgery today d/t bowel obstruction. May benefit from TPN after surgery while pending diet advancement with sufficient PO intake to meet needs. Discussed recommendation with MD, will d/w surgeon. If patient is to receive TPN, will provide recommendations for macronutrients. Recommend: 1. Advance diet as medically indicated to carb controlled when SBO obstruction is resolved 2. If SBO does not resolve and patient to have surgery with expected NPO >7 days would benefit from TPN to meet nutrition needs 3. Weight per rx Addendum: 03/22/19 at [address] Amended: Links added.
[2019-03-22] MEDS ORDERED: midazolam 100mg in NS 100ml 100 ML IV PRN (18:27)
[2019-03-22] MEDS ORDERED: albumin (Human) 5% 250ml 500 ML IV ONE (18:57)
[2019-03-22 19:01] LABS: ISTAT HGB 10.2 g/dl (12.0-16.0); ISTAT IONIZED CALCIUM 1.16 mmol/L (1.03-1.32); ISTAT K 3.3 mmol/L (3.5-5.1)
[2019-03-22] MEDS ORDERED: NORepinephrine 8mg/ 250ml NS 250 ML IV ONE (20:46)
[2019-03-22] MEDS ORDERED: albumin (Human) 5% 250ml 250 ML IV ONE (20:48)
[2019-03-22 21:05] LABS: BASOPHILS % (AUTO) 0.3 % (0-1); EOSINOPHILS % (AUTO) 0.7 % (0-6); HEMATOCRIT 36.2 % (35.0-45.0); HEMOGLOBIN 12.2 g/dl (12.0-16.0); LYMPHOCYTES # (AUTO) 1.2 X10'3 (1.1-4.8); LYMPHOCYTES % (AUTO) 30.3 % (21-51); MEAN CORPUSCULAR HEMOGLOBIN 32.2 PG (27.0-31.0); MEAN CORPUSCULAR HGB CONC 33.6 g/dL (33.0-36.5); MEAN CORPUSCULAR VOLUME 95.8 FL (78-98); MEAN PLATELET VOLUME 7.4 FL (7.4-10.4); MONOCYTES # (AUTO) 0.2 X10'3 (0-0.9); NEUTROPHILS # (AUTO) 2.5 X10'3 (1.8-7.7); NEUTROPHILS % (AUTO) 64.7 % (42-75); PLATELET COUNT 588 X10'3 (140-440); RED BLOOD COUNT 3.78 X10'6 (4.20-5.60); RED CELL DISTRIBUTION WIDTH 14.9 % (11.5-14.5); WHITE BLOOD COUNT 3.9 X10'3 (4.5-11.0)
[2019-03-22 21:26] LABS: ALANINE AMINOTRANSFERASE 18 U/L (12-78); ALBUMIN 2.5 G/DL (3.4-5.0); ALBUMIN/GLOBULIN RATIO 1.3 (1.1-1.5); ALKALINE PHOSPHATASE 53 IU/L (46-116); ANION GAP 13 (8-16); ASPARTATE AMINO TRANSFERASE 25 U/L (10-37); BILIRUBIN,TOTAL 0.7 MG/DL (0.1-1.0); BLOOD UREA NITROGEN 18 MG/DL (7-18); BUN/CREATININE RATIO 14.9 (6.6-38.0); CALCIUM 7.4 MG/DL (8.5-10.1); CHLORIDE 109 MMOL/L (99-107); CREATININE 1.21 MG/DL (0.40-0.90); GLUCOSE 189 MG/DL (70-104); POTASSIUM 3.8 MMOL/L (3.5-5.1); SODIUM 137 MMOL/L (135-145); TOTAL CARBON DIOXIDE 15.1 MMOL/L (24-32); TOTAL PROTEIN 4.5 G/DL (6.4-8.2); eGFR 45 ML/MIN
--- NOTE | 2019-03-22 21:30 | NUR ---
2034 received from OR , per denny , accompanied by anasthesiologist , on dopamine , when suddenly heard a large flatus from colostomy bag and burst with large stool with made bag leak around the site , change the bag , DR. George here with orders , at 2229 Joseph Modi came as well .
[2019-03-22 21:35] LABS: ABG BASE EXCESS -14.2 mmol/L (-2.0-3.0); ABG HCO3 11.2 mmol/L (22.0-26.0); ABG OXYGEN SATURATION 96.7 % (95-98); ABG PCO2 (T) 23.9 mmHg (35.0-45.0); ABG PO2 (T) 89.4 mmHg (83-108); FCOHb 0.8 % (0.5-1.5); FMetHb 0.3 % (0.3-1.12); FO2Hb 95.6 % (94-100); MINUTE VOLUME 14 L/min; PATIENT TEMPERATURE 35.4; PEEP 5 cm H2O; RESPIRATORY RATE 16 b/min; RESPIRATORY RATE (OBSERVED) 31 b/min; TIDAL VOLUME 450 mL; TOTAL HEMOGLOBIN 12.5 G/dl (12.0-16.0)
[2019-03-22] MEDS: FENTANYL-0.9 % NACL/PF 100 ML IV PRN (21:37)
[2019-03-22 21:41] LABS: OXYGEN SATURATION (MIXED VEN) 84.9 % (60-80); PO2 MIXED VENOUS (TEMP COR) 48.7 mmHg (35-46)
[2019-03-22] MEDS: NORepinephrine 8mg/ 250ml NS 250 ML IV SCH (22:40)
[2019-03-23] VITALS (24 sets, daily range): BP systolic 91–136; BP diastolic 47–63
[2019-03-23 00:54] LABS: BASOPHILS % (AUTO) 0.2 % (0-1); EOSINOPHILS % (AUTO) 0.1 % (0-6); HEMATOCRIT 41.3 % (35.0-45.0); HEMOGLOBIN 13.8 g/dl (12.0-16.0); LYMPHOCYTES # (AUTO) 1.2 X10'3 (1.1-4.8); LYMPHOCYTES % (AUTO) 9.1 % (21-51); MEAN CORPUSCULAR HEMOGLOBIN 31.8 PG (27.0-31.0); MEAN CORPUSCULAR HGB CONC 33.4 g/dL (33.0-36.5); MEAN CORPUSCULAR VOLUME 95.1 FL (78-98); MEAN PLATELET VOLUME 7.2 FL (7.4-10.4); MONOCYTES # (AUTO) 0.7 X10'3 (0-0.9); MONOCYTES % (AUTO) 5.1 % (2-12); NEUTROPHILS % (AUTO) 85.5 % (42-75); PLATELET COUNT 589 X10'3 (140-440); RED BLOOD COUNT 4.34 X10'6 (4.20-5.60); WHITE BLOOD COUNT 12.9 X10'3 (4.5-11.0)
[2019-03-23 01:07] LABS: ALANINE AMINOTRANSFERASE 17 U/L (12-78); ALBUMIN 2.8 G/DL (3.4-5.0); ALBUMIN/GLOBULIN RATIO 1.5 (1.1-1.5); ALKALINE PHOSPHATASE 57 IU/L (46-116); ANION GAP 18 (8-16); ASPARTATE AMINO TRANSFERASE 20 U/L (10-37); BILIRUBIN,TOTAL 1.4 MG/DL (0.1-1.0); BLOOD UREA NITROGEN 21 MG/DL (7-18); BUN/CREATININE RATIO 15.8 (6.6-38.0); CALCIUM 7.6 MG/DL (8.5-10.1); CHLORIDE 108 MMOL/L (99-107); CREATININE 1.33 MG/DL (0.40-0.90); GLUCOSE 218 MG/DL (70-104); POTASSIUM 3.4 MMOL/L (3.5-5.1); SODIUM 137 MMOL/L (135-145); TOTAL PROTEIN 4.7 G/DL (6.4-8.2); eGFR 40 ML/MIN
[2019-03-23 01:11] LABS: TOTAL CARBON DIOXIDE 11.1 MMOL/L (24-32)
--- NOTE | 2019-03-23 01:19 | NUR ---
awake . follow commands well , nod yes to pain, empty colostomy every 2 hrs
[2019-03-23] MEDS: mineral oil/petrolatum ophthal oint EACHEYE SCH ×5 (01:28→20:05)
[2019-03-23] MEDS: potassium CL 10mEq/100ml bag 100 ML IV PRN ×2 (01:33→02:28)
[2019-03-23] MEDS: hydrALAZINE 20mg/ml inj. IV SCH ×4 (02:00→19:55)
[2019-03-23] MEDS: levalbuterol 0.63mg/3ml nebule IH SCH ×4 (03:08→21:50)
[2019-03-23 03:20] LABS: ABG HCO3 9.1 mmol/L (22.0-26.0); ABG PCO2 (T) 21.6 mmHg (35.0-45.0); ABG PH (T) 7.232 (7.350-7.450); ABG PO2 (T) 178.3 mmHg (83-108); FCOHb 0.3 % (0.5-1.5); FMetHb 0.3 % (0.3-1.12); FO2Hb 98.4 % (94-100); MINUTE VOLUME 12 L/min; PEEP 5 cm H2O; RESPIRATORY RATE 16 b/min; RESPIRATORY RATE (OBSERVED) 27 b/min; TIDAL VOLUME 450 mL; TOTAL HEMOGLOBIN 13.9 G/dl (12.0-16.0)
[2019-03-23] MEDS: NORepinephrine 8mg/ 250ml NS 250 ML IV SCH ×2 (04:12→14:32)
[2019-03-23] MEDS: sodium bicarbonate (8.4%) inj. 75 MEQ in dextrose 5% water 500ml 500 ML IV SCH ×5 (04:12→22:24)
--- NOTE | 2019-03-23 04:36 | NUR ---
Patient in room ICU 2041. I have received report from Susie STONE and had the opportunity to ask questions and assume patient care.
[2019-03-23 05:04] LABS: BASOPHILS % (AUTO) 0.1 % (0-1); EOSINOPHILS % (AUTO) 0 % (0-6); HEMATOCRIT 39.2 % (35.0-45.0); HEMOGLOBIN 13.1 g/dl (12.0-16.0); LYMPHOCYTES # (AUTO) 0.7 X10'3 (1.1-4.8); LYMPHOCYTES % (AUTO) 4.8 % (21-51); MEAN CORPUSCULAR HEMOGLOBIN 31.9 PG (27.0-31.0); MEAN CORPUSCULAR HGB CONC 33.5 g/dL (33.0-36.5); MEAN CORPUSCULAR VOLUME 95.3 FL (78-98); MEAN PLATELET VOLUME 6.9 FL (7.4-10.4); MONOCYTES # (AUTO) 0.5 X10'3 (0-0.9); MONOCYTES % (AUTO) 3.6 % (2-12); NEUTROPHILS # (AUTO) 13.3 X10'3 (1.8-7.7); NEUTROPHILS % (AUTO) 91.5 % (42-75); PLATELET COUNT 541 X10'3 (140-440); RED BLOOD COUNT 4.11 X10'6 (4.20-5.60); RED CELL DISTRIBUTION WIDTH 15.4 % (11.5-14.5); WHITE BLOOD COUNT 14.6 X10'3 (4.5-11.0)
[2019-03-23 05:37] LABS: ALANINE AMINOTRANSFERASE 17 U/L (12-78); ALBUMIN 2.3 G/DL (3.4-5.0); ALBUMIN/GLOBULIN RATIO 1.2 (1.1-1.5); ALKALINE PHOSPHATASE 48 IU/L (46-116); ANION GAP 18 (8-16); ASPARTATE AMINO TRANSFERASE 18 U/L (10-37); BILIRUBIN,TOTAL 0.9 MG/DL (0.1-1.0); BLOOD UREA NITROGEN 21 MG/DL (7-18); BUN/CREATININE RATIO 14.8 (6.6-38.0); CALCIUM 7.4 MG/DL (8.5-10.1); CHLORIDE 108 MMOL/L (99-107); CREATININE 1.42 MG/DL (0.40-0.90); GLUCOSE 239 MG/DL (70-104); POTASSIUM 3.7 MMOL/L (3.5-5.1); SODIUM 137 MMOL/L (135-145); TOTAL PROTEIN 4.2 G/DL (6.4-8.2); eGFR 37 ML/MIN
[2019-03-23 05:42] LABS: TOTAL CARBON DIOXIDE 11.4 MMOL/L (24-32)
[2019-03-23] MEDS: normal saline 1000ml 1,000 ML IV SCH ×3 (06:10→15:28)
--- NOTE | 2019-03-23 06:30 | NUR ---
Patient in room ICU 2041. I have received report from Aminata STONE and had the opportunity to ask questions and assume patient care.
--- NOTE | 2019-03-23 06:30 | NUR ---
Problems reprioritized. Patient report given, questions answered & plan of care reviewed with KRISHNA STONE.
[2019-03-23] MEDS: levoTHYROXINE 75mcg tablet PO SCH ×2 (07:00→07:48)
[2019-03-23] MEDS: pantoprazole 40 MG vial IV SCH (07:48)
[2019-03-23] MEDS: FENTANYL-0.9 % NACL/PF 100 ML IV PRN ×2 (07:56→15:27)
[2019-03-23] MEDS ORDERED: enoxaparin 100mg/ml syringe SUBCUT ONE (08:00)
[2019-03-23] MEDS: K and/or MAG REPLACEMENT MC SCH (08:00)
[2019-03-23] MEDS ORDERED: ceFOXitin 2 GM ADDvantage bag 100 ML IV SCH (08:00)
[2019-03-23] MEDS ORDERED: ceFOXitin sod/dextrose 2g/50ml 50 ML IV SCH (08:00)
[2019-03-23] MEDS: CefTRIAXone 2gm/D5W 50ml 50 ML IV SCH (08:28)
[2019-03-23 08:54] LABS: BASOPHILS % (AUTO) 0.1 % (0-1); EOSINOPHILS % (AUTO) 0 % (0-6); HEMATOCRIT 35.8 % (35.0-45.0); HEMOGLOBIN 12.3 g/dl (12.0-16.0); LYMPHOCYTES # (AUTO) 0.7 X10'3 (1.1-4.8); LYMPHOCYTES % (AUTO) 4.5 % (21-51); MEAN CORPUSCULAR HEMOGLOBIN 32.3 PG (27.0-31.0); MEAN CORPUSCULAR HGB CONC 34.2 g/dL (33.0-36.5); MEAN CORPUSCULAR VOLUME 94.5 FL (78-98); MEAN PLATELET VOLUME 6.5 FL (7.4-10.4); MONOCYTES # (AUTO) 0.5 X10'3 (0-0.9); MONOCYTES % (AUTO) 3.2 % (2-12); NEUTROPHILS # (AUTO) 14.5 X10'3 (1.8-7.7); NEUTROPHILS % (AUTO) 92.2 % (42-75); PLATELET COUNT 425 X10'3 (140-440); RED BLOOD COUNT 3.79 X10'6 (4.20-5.60); RED CELL DISTRIBUTION WIDTH 14.9 % (11.5-14.5); WHITE BLOOD COUNT 15.7 X10'3 (4.5-11.0)
[2019-03-23] MEDS: metroNIDAZOLE-Flagyl 500mg/NS 100 ML IV SCH ×2 (09:00→15:30)
[2019-03-23 09:12] LABS: ALANINE AMINOTRANSFERASE 16 U/L (12-78); ALKALINE PHOSPHATASE 47 IU/L (46-116); ANION GAP 14 (8-16); ASPARTATE AMINO TRANSFERASE 16 U/L (10-37); BILIRUBIN,TOTAL 0.6 MG/DL (0.1-1.0); BLOOD UREA NITROGEN 22 MG/DL (7-18); BUN/CREATININE RATIO 14.6 (6.6-38.0); CALCIUM 7.2 MG/DL (8.5-10.1); CHLORIDE 108 MMOL/L (99-107); CREATININE 1.51 MG/DL (0.40-0.90); GLUCOSE 277 MG/DL (70-104); POTASSIUM 3.4 MMOL/L (3.5-5.1); SODIUM 137 MMOL/L (135-145); TOTAL CARBON DIOXIDE 15.2 MMOL/L (24-32); eGFR 34 ML/MIN
[2019-03-23] MEDS: budesonide 0.5mg/2ml UD nebule IH SCH ×2 (09:12→21:51)
[2019-03-23] MEDS: insulin Lispro (HumaLOG) vial - multi-dose SQ SCH ×2 (09:13→14:40)
[2019-03-23 09:41] LABS: PLATELET ESTIMATE NORMAL; TOTAL CELLS COUNTED 100
[2019-03-23 09:42] LABS: BURR CELLS 1+
[2019-03-23 09:43] LABS: ANISOCYTOSIS 1+; LARGE PLATELETS FEW
[2019-03-23 10:56] LABS: GLUCOSE, URINE 100 mg/dl (Neg); KETONES,URINE 15 mg/dl (Neg); LEUKOCYTE ESTERASE ,URINE TRACE (Neg); OCCULT BLOOD,URINE LARGE (Neg); PH,URINE 6.5 (4.8-8.0); PROTEIN,URINE 100 mg/dl (Neg)
[2019-03-23 10:57] LABS: CLARITY,URINE Turbid (Clear); COLOR,URINE BROWN (Yellow); UA COLLECTION TYPE FOLEY CATH
[2019-03-23 11:00] LABS: RBC,URINE TNTC /HPF (0-2)
[2019-03-23 11:01] LABS: BACTERIA,URINE NONE SEEN /HPF (Neg); MUCUS STRANDS NONE SEEN /LPF (Neg); SQUAMOUS EPITHELIAL CELL,UR NONE SEEN /LPF (FEW)
[2019-03-23 11:11] LABS: TOTAL PROTEIN,URINE RANDOM 313.6 MG/DL
--- NOTE | 2019-03-23 12:20 | NUR ---
1220 to 1300 pt at nuclear medicine.
[2019-03-23] MEDS: nystatin 15 GM powder TP SCH ×3 (13:00→22:26)
--- NOTE | 2019-03-23 13:19 | NUR ---
Retrieved from pts EMR: Pt is a 68-year-old female patient who presented with weakness, nausea and abdominal pain. Pt had CT performed which showed small bowel obstruction and fluid filled small and large bowel. Pt had surgical intervention by Raciel Casillas MD with placement of a ureteral stent. Pt also underwent adhesion lysis, removal of mass, and sigmoid colon resection with colostomy formation by Dustin SHOEMAKER. Pt has history of peripheral neuropathy, HTN, carotid disease, asthma, former smoking, bronchitis, CPAP use, GERD, diverticulitis, stage 4 renal failure, osteoarthritis, gout, DM, anemia, ovarian cyst, tuberculosis, and melanoma. Pts labs show elevated WBC at 15.7, urine positive for glucose, protein, ketones, blood, urobilinogen, RBC, WBC, potassium low at 3.4, chloride high at 108, estimated GFR low at 34, A1C 7.9 high, calcium low at 7.2, and albumin low at 2.0. WOC consulted for: New Colostomy Upon assessment, pt is intubated, appears to be sedated and unresponsive. Left Ostomy information packet bedside and attempted to assess stoma. Per Pts primary RN, pt has had excessive amount of liquid stool output from ostomy, and very little urine from forrest. Per Doctor Adolfo note, consideration of urine mixed with stoma output. Unable to accurately visualize stoma but from touch, appears stoma may be slightly inverted. Will continue to follow.
[2019-03-23 13:42] LABS: BASOPHILS % (AUTO) 0.1 % (0-1); EOSINOPHILS % (AUTO) 0 % (0-6); HEMATOCRIT 33.8 % (35.0-45.0); HEMOGLOBIN 11.4 g/dl (12.0-16.0); LYMPHOCYTES # (AUTO) 0.8 X10'3 (1.1-4.8); LYMPHOCYTES % (AUTO) 3.5 % (21-51); MEAN CORPUSCULAR HEMOGLOBIN 31.6 PG (27.0-31.0); MEAN CORPUSCULAR HGB CONC 33.7 g/dL (33.0-36.5); MEAN CORPUSCULAR VOLUME 93.5 FL (78-98); MEAN PLATELET VOLUME 6.9 FL (7.4-10.4); MONOCYTES # (AUTO) 0.7 X10'3 (0-0.9); NEUTROPHILS # (AUTO) 21.9 X10'3 (1.8-7.7); NEUTROPHILS % (AUTO) 93.4 % (42-75); PLATELET COUNT 392 X10'3 (140-440); RED BLOOD COUNT 3.61 X10'6 (4.20-5.60); RED CELL DISTRIBUTION WIDTH 15.2 % (11.5-14.5); WHITE BLOOD COUNT 23.4 X10'3 (4.5-11.0)
[2019-03-23 14:05] LABS: ALANINE AMINOTRANSFERASE 17 U/L (12-78); ALBUMIN 1.8 G/DL (3.4-5.0); ALBUMIN/GLOBULIN RATIO 0.9 (1.1-1.5); ALKALINE PHOSPHATASE 48 IU/L (46-116); ANION GAP 11 (8-16); ASPARTATE AMINO TRANSFERASE 16 U/L (10-37); BILIRUBIN,TOTAL 0.3 MG/DL (0.1-1.0); BLOOD UREA NITROGEN 21 MG/DL (7-18); CALCIUM 7.1 MG/DL (8.5-10.1); CHLORIDE 109 MMOL/L (99-107); CREATININE 1.62 MG/DL (0.40-0.90); GLUCOSE 278 MG/DL (70-104); POTASSIUM 3.1 MMOL/L (3.5-5.1); SODIUM 137 MMOL/L (135-145); TOTAL CARBON DIOXIDE 17.4 MMOL/L (24-32); TOTAL PROTEIN 3.8 G/DL (6.4-8.2); eGFR 32 ML/MIN
--- NOTE | 2019-03-23 14:17 | NUR ---
TPN consult: Patient is intubated and sedated s/p open exploratory lap with bowel resection, removal of mass, placement of uretal stents, and colostomy placement. Her new colostomy put out 3 liters, 40 cc out forrest. Per MD note possible bladder leak into ostomy, this is being investigated. Patient has very poor PO intake for 9 days with clear liquids, pending surgery today d/t bowel obstruction. Will benefit from TPN while intubated to meet needs. Recommend: 1. Recommend 2:1 TPN using Clinimix E 09/21 to run continuously at 95 ml/hr will provide total volume of 2280 ml, 1619 cals, 114 g protein, 2.44 mg/kg/min CHO loading. 2. Separate 20% intralipid at 10 ml/hr providing total of 120 ml per day and 24 grams of fat. 3. TPN with lipids will provide total calories of 1859 cals and meet patient's nutrition needs on vent. 4. Prealbumin and TG q wednesday and 5. daily weights Addendum: 03/23/19 at [address] Amended: Links added.
[2019-03-23] MEDS ORDERED: Trace element-5 inj. 1 ML in AA 5%/cal/electrolyte-TPN/D15W 2,000 ML IV SCH (16:00)
[2019-03-23] MEDS ORDERED: glucagon, human recombinant 1mg kit SUBCUT PRN (16:55)
[2019-03-23] MEDS ORDERED: MESSAGE TO PHARMACY PO ONE (16:55)
[2019-03-23] MEDS ORDERED: dextrose ORAL solution 15 GM/59 ML bottle PO PRN ×2 (16:55)
[2019-03-23] MEDS ORDERED: dextrose 50%-water 50ml dispensing syringe IV PRN ×2 (16:55)
[2019-03-23] MEDS: potassium Cl 20mEq/100mL bag 100 ML IV PRN ×4 (17:45→23:31)
[2019-03-23 17:59] LABS: BASOPHILS % (AUTO) 0 % (0-1); EOSINOPHILS % (AUTO) 0 % (0-6); HEMATOCRIT 32.6 % (35.0-45.0); HEMOGLOBIN 11.2 g/dl (12.0-16.0); LYMPHOCYTES # (AUTO) 0.6 X10'3 (1.1-4.8); LYMPHOCYTES % (AUTO) 2.3 % (21-51); MEAN CORPUSCULAR HEMOGLOBIN 31.7 PG (27.0-31.0); MEAN CORPUSCULAR HGB CONC 34.3 g/dL (33.0-36.5); MEAN CORPUSCULAR VOLUME 92.4 FL (78-98); MEAN PLATELET VOLUME 7.2 FL (7.4-10.4); MONOCYTES # (AUTO) 0.5 X10'3 (0-0.9); MONOCYTES % (AUTO) 1.8 % (2-12); NEUTROPHILS % (AUTO) 95.9 % (42-75); PLATELET COUNT 352 X10'3 (140-440); RED BLOOD COUNT 3.53 X10'6 (4.20-5.60); RED CELL DISTRIBUTION WIDTH 15.1 % (11.5-14.5)
[2019-03-23 18:03] LABS: WHITE BLOOD COUNT 26.1 X10'3 (4.5-11.0)
[2019-03-23 18:09] LABS: ALANINE AMINOTRANSFERASE 17 U/L (12-78); ALBUMIN 1.7 G/DL (3.4-5.0); ALBUMIN/GLOBULIN RATIO 0.8 (1.1-1.5); ALKALINE PHOSPHATASE 52 IU/L (46-116); ANION GAP 11 (8-16); ASPARTATE AMINO TRANSFERASE 17 U/L (10-37); BILIRUBIN,TOTAL 0.3 MG/DL (0.1-1.0); BLOOD UREA NITROGEN 23 MG/DL (7-18); BUN/CREATININE RATIO 13.9 (6.6-38.0); CALCIUM 7.1 MG/DL (8.5-10.1); CHLORIDE 108 MMOL/L (99-107); CREATININE 1.65 MG/DL (0.40-0.90); GLUCOSE 288 MG/DL (70-104); SODIUM 137 MMOL/L (135-145); TOTAL CARBON DIOXIDE 17.9 MMOL/L (24-32); TOTAL PROTEIN 3.8 G/DL (6.4-8.2); eGFR 31 ML/MIN
[2019-03-23] MEDS: acetaminophen 650mg rectal suppository RC PRN (18:10)
[2019-03-23] MEDS: midazolam 100mg in NS 100ml 100 ML IV PRN (18:34)
[2019-03-23 18:35] LABS: TOTAL CELLS COUNTED 100
[2019-03-23 18:37] LABS: PLATELET ESTIMATE NORMAL
[2019-03-23 18:38] LABS: ANISOCYTOSIS 1+; BURR CELLS 3+; TOXIC GRANULATION 3+
[2019-03-23 18:39] LABS: ELLIPTOCYTES FEW
--- NOTE | 2019-03-23 18:41 | NUR ---
Problems reprioritized. Patient report given, questions answered & plan of care reviewed with Matthias STONE.
--- NOTE | 2019-03-23 18:42 | NUR ---
Patient in room ICU 2041. I have received report from Susie STONE and had the opportunity to ask questions and assume patient care.
[2019-03-23] MEDS: lactobacillus rhamnosus 10,000 MMU CELLS/CAPSULE PO SCH (19:55)
[2019-03-23] MEDS: fat emulsion IV bag 250 ML IV SCH (20:05)
[2019-03-23] MEDS: insulin regular, human vial - multi-dose SQ SCH (20:10)
[2019-03-23] MEDS ORDERED: insulin glargine (Lantus) pen - multi-dose SQ SCH (21:00)
[2019-03-23 21:11] LABS: BASOPHILS % (AUTO) 0.1 % (0-1); EOSINOPHILS % (AUTO) 0 % (0-6); HEMATOCRIT 31.9 % (35.0-45.0); HEMOGLOBIN 10.9 g/dl (12.0-16.0); LYMPHOCYTES # (AUTO) 0.4 X10'3 (1.1-4.8); LYMPHOCYTES % (AUTO) 1.7 % (21-51); MEAN CORPUSCULAR HEMOGLOBIN 31.7 PG (27.0-31.0); MEAN CORPUSCULAR HGB CONC 34.2 g/dL (33.0-36.5); MEAN CORPUSCULAR VOLUME 92.7 FL (78-98); MEAN PLATELET VOLUME 7.1 FL (7.4-10.4); MONOCYTES # (AUTO) 0.6 X10'3 (0-0.9); MONOCYTES % (AUTO) 2.5 % (2-12); NEUTROPHILS # (AUTO) 23.6 X10'3 (1.8-7.7); NEUTROPHILS % (AUTO) 95.7 % (42-75); PLATELET COUNT 312 X10'3 (140-440); RED BLOOD COUNT 3.44 X10'6 (4.20-5.60); RED CELL DISTRIBUTION WIDTH 14.9 % (11.5-14.5); WHITE BLOOD COUNT 24.7 X10'3 (4.5-11.0)
[2019-03-23 21:21] LABS: ALANINE AMINOTRANSFERASE 16 U/L (12-78); ALBUMIN 1.7 G/DL (3.4-5.0); ALBUMIN/GLOBULIN RATIO 0.8 (1.1-1.5); ALKALINE PHOSPHATASE 55 IU/L (46-116); ANION GAP 10 (8-16); ASPARTATE AMINO TRANSFERASE 17 U/L (10-37); BILIRUBIN,TOTAL 0.3 MG/DL (0.1-1.0); BLOOD UREA NITROGEN 23 MG/DL (7-18); BUN/CREATININE RATIO 13.8 (6.6-38.0); CALCIUM 7.3 MG/DL (8.5-10.1); CHLORIDE 107 MMOL/L (99-107); CREATININE 1.67 MG/DL (0.40-0.90); GLUCOSE 312 MG/DL (70-104); SODIUM 137 MMOL/L (135-145); TOTAL CARBON DIOXIDE 19.9 MMOL/L (24-32); TOTAL PROTEIN 3.8 G/DL (6.4-8.2); eGFR 31 ML/MIN
[2019-03-23 22:06] LABS: TOTAL CELLS COUNTED 100
[2019-03-23 22:07] LABS: PLATELET ESTIMATE NORMAL
[2019-03-23 22:08] LABS: BURR CELLS 3+
[2019-03-23 22:09] LABS: TOXIC GRANULATION 3+; TOXIC VACUOLATION FEW
[2019-03-23] MEDS ORDERED: albumin (human) 25% 100 ML IV solution IV ONE (23:55)
[2019-03-24] VITALS (29 sets, daily range): BP systolic 78–153; BP diastolic 33–67
--- NOTE | 2019-03-24 | NUR ---
around 2344 i spokw with Lucille WASHER AND CAPPER MACHINE OPERATOR regarding the pt BP, because i had been having to increase the levophed through the last few hours to maintain the pressure. Lucille gave order for 200ml of 25% albumin. orders placed, will administer shortly.
[2019-03-24] MEDS: metroNIDAZOLE-Flagyl 500mg/NS 100 ML IV SCH ×4 (00:36→23:39)
[2019-03-24] MEDS: FENTANYL-0.9 % NACL/PF 100 ML IV PRN ×2 (00:36→10:33)
[2019-03-24] MEDS: insulin regular, human vial - multi-dose SQ SCH ×4 (01:15→19:35)
[2019-03-24] MEDS: mineral oil/petrolatum ophthal oint EACHEYE SCH ×4 (01:16→19:29)
[2019-03-24] MEDS: hydrALAZINE 20mg/ml inj. IV SCH ×4 (01:16→19:24)
--- NOTE | 2019-03-24 01:17 | NUR ---
i called May REIMBURSEMENT COUNSELOR at this time due to pt BS of 328. she is aware. wishes to continue with protocol. will move pt to a level 5 and give insulin accordingly. continue to monitor
[2019-03-24 01:41] LABS: BASOPHILS % (AUTO) 0 % (0-1); EOSINOPHILS % (AUTO) 0 % (0-6); HEMATOCRIT 27.5 % (35.0-45.0); HEMOGLOBIN 9.5 g/dl (12.0-16.0); LYMPHOCYTES # (AUTO) 0.5 X10'3 (1.1-4.8); LYMPHOCYTES % (AUTO) 1.9 % (21-51); MEAN CORPUSCULAR HEMOGLOBIN 31.7 PG (27.0-31.0); MEAN CORPUSCULAR HGB CONC 34.5 g/dL (33.0-36.5); MEAN CORPUSCULAR VOLUME 91.8 FL (78-98); MEAN PLATELET VOLUME 7.4 FL (7.4-10.4); MONOCYTES # (AUTO) 0.5 X10'3 (0-0.9); MONOCYTES % (AUTO) 1.8 % (2-12); NEUTROPHILS # (AUTO) 25.5 X10'3 (1.8-7.7); NEUTROPHILS % (AUTO) 96.3 % (42-75); PLATELET COUNT 285 X10'3 (140-440)
[2019-03-24 01:43] LABS: WHITE BLOOD COUNT 26.5 X10'3 (4.5-11.0)
[2019-03-24 01:52] LABS: ALANINE AMINOTRANSFERASE 14 U/L (12-78); ALBUMIN 2.8 G/DL (3.4-5.0); ALBUMIN/GLOBULIN RATIO 1.4 (1.1-1.5); ALKALINE PHOSPHATASE 58 IU/L (46-116); ANION GAP 10 (8-16); ASPARTATE AMINO TRANSFERASE 12 U/L (10-37); BILIRUBIN,TOTAL 0.4 MG/DL (0.1-1.0); BLOOD UREA NITROGEN 23 MG/DL (7-18); BUN/CREATININE RATIO 13.5 (6.6-38.0); CALCIUM 7.2 MG/DL (8.5-10.1); CHLORIDE 106 MMOL/L (99-107); GLUCOSE 335 MG/DL (70-104); MAGNESIUM 1.1 MG/DL (1.5-2.4); PHOSPHORUS 2.3 MG/DL (2.3-4.5); POTASSIUM 3.6 MMOL/L (3.5-5.1); SODIUM 136 MMOL/L (135-145); TOTAL CARBON DIOXIDE 19.6 MMOL/L (24-32); TOTAL PROTEIN 4.8 G/DL (6.4-8.2); eGFR 30 ML/MIN
[2019-03-24] MEDS ORDERED: magnesium 2GM in 50ml NS 50 ML IV PRN (02:00)
[2019-03-24] MEDS ORDERED: magnesium 4gm in 100ml NS 100 ML IV PRN (02:00)
[2019-03-24 03:05] LABS: BURR CELLS 3+; PLATELET ESTIMATE NORMAL; TOTAL CELLS COUNTED 100
[2019-03-24 03:06] LABS: TOXIC GRANULATION 2+; TOXIC VACUOLATION FEW
[2019-03-24] MEDS: levalbuterol 0.63mg/3ml nebule IH SCH ×4 (03:10→19:06)
[2019-03-24 03:21] LABS: ABG BASE EXCESS -7.5 mmol/L (-2.0-3.0); ABG HCO3 16.1 mmol/L (22.0-26.0); ABG OXYGEN SATURATION 98.2 % (95-98); ABG PCO2 (T) 27.3 mmHg (35.0-45.0); ABG PH (T) 7.392 (7.350-7.450); FCOHb 0.3 % (0.5-1.5); FMetHb 0.3 % (0.3-1.12); FO2Hb 97.6 % (94-100); MINUTE VOLUME 10 L/min; PATIENT TEMPERATURE 37.8; PEEP 5 cm H2O; RESPIRATORY RATE 16 b/min; RESPIRATORY RATE (OBSERVED) 20 b/min; TIDAL VOLUME 450 mL; TOTAL HEMOGLOBIN 9.3 G/dl (12.0-16.0)
[2019-03-24] MEDS: sodium bicarbonate (8.4%) inj. 75 MEQ in dextrose 5% water 500ml 500 ML IV SCH ×4 (04:48→22:27)
[2019-03-24 05:22] LABS: BASOPHILS % (AUTO) 0.1 % (0-1); EOSINOPHILS % (AUTO) 0.1 % (0-6); HEMATOCRIT 25.6 % (35.0-45.0); HEMOGLOBIN 8.9 g/dl (12.0-16.0); LYMPHOCYTES # (AUTO) 0.5 X10'3 (1.1-4.8); MEAN CORPUSCULAR HEMOGLOBIN 31.9 PG (27.0-31.0); MEAN CORPUSCULAR HGB CONC 34.8 g/dL (33.0-36.5); MEAN CORPUSCULAR VOLUME 91.6 FL (78-98); MEAN PLATELET VOLUME 7.1 FL (7.4-10.4); MONOCYTES # (AUTO) 0.4 X10'3 (0-0.9); MONOCYTES % (AUTO) 1.6 % (2-12); NEUTROPHILS # (AUTO) 21.4 X10'3 (1.8-7.7); NEUTROPHILS % (AUTO) 96.2 % (42-75); PLATELET COUNT 249 X10'3 (140-440); WHITE BLOOD COUNT 22.3 X10'3 (4.5-11.0)
[2019-03-24 05:28] LABS: ALANINE AMINOTRANSFERASE 14 U/L (12-78); ALBUMIN 2.4 G/DL (3.4-5.0); ALBUMIN/GLOBULIN RATIO 1.3 (1.1-1.5); ALKALINE PHOSPHATASE 51 IU/L (46-116); ANION GAP 13 (8-16); ASPARTATE AMINO TRANSFERASE 8 U/L (10-37); BILIRUBIN,TOTAL 0.3 MG/DL (0.1-1.0); BLOOD UREA NITROGEN 23 MG/DL (7-18); BUN/CREATININE RATIO 12.9 (6.6-38.0); CALCIUM 6.8 MG/DL (8.5-10.1); CHLORIDE 106 MMOL/L (99-107); CREATININE 1.78 MG/DL (0.40-0.90); GLUCOSE 311 MG/DL (70-104); POTASSIUM 3.1 MMOL/L (3.5-5.1); SODIUM 137 MMOL/L (135-145); TOTAL CARBON DIOXIDE 17.9 MMOL/L (24-32); TOTAL PROTEIN 4.2 G/DL (6.4-8.2); eGFR 29 ML/MIN
[2019-03-24] MEDS: normal saline 1000ml 1,000 ML IV SCH ×2 (06:00→16:36)
[2019-03-24 06:21] LABS: TOTAL CELLS COUNTED 100
[2019-03-24 06:22] LABS: ANISOCYTOSIS FEW; BURR CELLS 3+; PLATELET ESTIMATE NORMAL; TOXIC GRANULATION 2+
--- NOTE | 2019-03-24 06:30 | NUR ---
Patient in room ICU 2041. I have received report from Matthias STONE and had the opportunity to ask questions and assume patient care.
--- NOTE | 2019-03-24 06:41 | NUR ---
Problems reprioritized. Patient report given, questions answered & plan of care reviewed with Susie STONE and Brenda STONE.
[2019-03-24] MEDS: levoTHYROXINE 75mcg tablet PO SCH (07:00)
[2019-03-24] MEDS: nystatin 15 GM powder TP SCH ×3 (07:50→20:18)
[2019-03-24] MEDS: pantoprazole 40 MG vial IV SCH (07:50)
[2019-03-24] MEDS: K and/or MAG REPLACEMENT MC SCH ×2 (08:00)
[2019-03-24] MEDS: lactobacillus rhamnosus 10,000 MMU CELLS/CAPSULE PO SCH ×2 (08:00→19:25)
[2019-03-24] MEDS: acetaminophen 650mg rectal suppository RC PRN (08:08)
[2019-03-24] MEDS: budesonide 0.5mg/2ml UD nebule IH SCH ×2 (08:14→19:07)
[2019-03-24 09:19] LABS: BASOPHILS % (AUTO) 0 % (0-1); EOSINOPHILS % (AUTO) 0 % (0-6); HEMATOCRIT 23.9 % (35.0-45.0); HEMOGLOBIN 8.3 g/dl (12.0-16.0); LYMPHOCYTES # (AUTO) 0.3 X10'3 (1.1-4.8); LYMPHOCYTES % (AUTO) 1.7 % (21-51); MEAN CORPUSCULAR HEMOGLOBIN 31.9 PG (27.0-31.0); MEAN CORPUSCULAR HGB CONC 34.6 g/dL (33.0-36.5); MEAN CORPUSCULAR VOLUME 92.1 FL (78-98); MONOCYTES # (AUTO) 0.2 X10'3 (0-0.9); MONOCYTES % (AUTO) 1.4 % (2-12); NEUTROPHILS # (AUTO) 17.2 X10'3 (1.8-7.7); NEUTROPHILS % (AUTO) 96.9 % (42-75); PLATELET COUNT 210 X10'3 (140-440); RED CELL DISTRIBUTION WIDTH 14.9 % (11.5-14.5); WHITE BLOOD COUNT 17.8 X10'3 (4.5-11.0)
[2019-03-24 09:28] LABS: ALANINE AMINOTRANSFERASE 13 U/L (12-78); ALBUMIN 2.1 G/DL (3.4-5.0); ALBUMIN/GLOBULIN RATIO 1.2 (1.1-1.5); ALKALINE PHOSPHATASE 55 IU/L (46-116); ANION GAP 11 (8-16); ASPARTATE AMINO TRANSFERASE 13 U/L (10-37); BILIRUBIN,TOTAL 0.2 MG/DL (0.1-1.0); BLOOD UREA NITROGEN 25 MG/DL (7-18); BUN/CREATININE RATIO 13.8 (6.6-38.0); CHLORIDE 107 MMOL/L (99-107); CREATININE 1.81 MG/DL (0.40-0.90); GLUCOSE 308 MG/DL (70-104); SODIUM 137 MMOL/L (135-145); TOTAL CARBON DIOXIDE 19.2 MMOL/L (24-32); TOTAL PROTEIN 3.9 G/DL (6.4-8.2); eGFR 28 ML/MIN
[2019-03-24 09:31] LABS: POTASSIUM 2.8 MMOL/L (3.5-5.1)
[2019-03-24] MEDS: CefTRIAXone 2gm/D5W 50ml 50 ML IV SCH (09:33)
[2019-03-24] MEDS: potassium Cl 20mEq/100mL bag 100 ML IV PRN ×7 (10:28→21:39)
[2019-03-24] MEDS: NORepinephrine 8mg/ 250ml NS 250 ML IV SCH (12:25)
[2019-03-24] MEDS: [UNRECOGNIZED DRUG - REMARK] IV SCH ×2 (12:31)
[2019-03-24] MEDS: Dakins solution (1/4 strength) 473ml solution TP SCH ×2 (13:37→20:18)
--- NOTE | 2019-03-24 14:10 | NUR ---
pt to OR.
[2019-03-24] MEDS ORDERED: sevoflurane 250ml liquid IH ONE (14:20)
[2019-03-24] MEDS ORDERED: rocuronium 10mg/ml inj IV ONE (14:38)
[2019-03-24] MEDS ORDERED: insulin regular, human vial - multi-dose ONE (14:41)
--- NOTE | 2019-03-24 14:55 | NUR ---
I have reviewed and agree with all medications administered and interventions performed by [facility] Student(LESLEY DESIR)
--- NOTE | 2019-03-24 15:30 | NUR ---
pt back from OR. VSS
[2019-03-24 16:01] LABS: BASOPHILS % (AUTO) 0 % (0-1); EOSINOPHILS % (AUTO) 0 % (0-6); HEMATOCRIT 25.1 % (35.0-45.0); HEMOGLOBIN 8.7 g/dl (12.0-16.0); LYMPHOCYTES # (AUTO) 0.5 X10'3 (1.1-4.8); LYMPHOCYTES % (AUTO) 1.8 % (21-51); MEAN CORPUSCULAR HEMOGLOBIN 31.7 PG (27.0-31.0); MEAN CORPUSCULAR HGB CONC 34.5 g/dL (33.0-36.5); MEAN PLATELET VOLUME 7.3 FL (7.4-10.4); MONOCYTES # (AUTO) 0.2 X10'3 (0-0.9); MONOCYTES % (AUTO) 0.8 % (2-12); NEUTROPHILS # (AUTO) 25.3 X10'3 (1.8-7.7); NEUTROPHILS % (AUTO) 97.4 % (42-75); PLATELET COUNT 227 X10'3 (140-440); RED BLOOD COUNT 2.73 X10'6 (4.20-5.60); RED CELL DISTRIBUTION WIDTH 15.1 % (11.5-14.5)
[2019-03-24 16:10] LABS: ALANINE AMINOTRANSFERASE 14 U/L (12-78); ALBUMIN 1.9 G/DL (3.4-5.0); ALKALINE PHOSPHATASE 70 IU/L (46-116); ANION GAP 9 (8-16); ASPARTATE AMINO TRANSFERASE 12 U/L (10-37); BILIRUBIN,TOTAL 0.2 MG/DL (0.1-1.0); BLOOD UREA NITROGEN 24 MG/DL (7-18); BUN/CREATININE RATIO 14.5 (6.6-38.0); CALCIUM 6.9 MG/DL (8.5-10.1); CHLORIDE 107 MMOL/L (99-107); CREATININE 1.66 MG/DL (0.40-0.90); GLUCOSE 381 MG/DL (70-104); MAGNESIUM 1.8 MG/DL (1.5-2.4); POTASSIUM 3.3 MMOL/L (3.5-5.1); SODIUM 136 MMOL/L (135-145); TOTAL CARBON DIOXIDE 19.6 MMOL/L (24-32); TOTAL PROTEIN 3.9 G/DL (6.4-8.2); eGFR 31 ML/MIN
[2019-03-24 16:19] LABS: ANISOCYTOSIS FEW; PLATELET ESTIMATE NORMAL; TOTAL CELLS COUNTED 100; TOXIC GRANULATION 3+; TOXIC VACUOLATION 1+
--- NOTE | 2019-03-24 18:29 | NUR ---
Problems reprioritized. Patient report given, questions answered & plan of care reviewed with Matthias STONE.
--- NOTE | 2019-03-24 18:30 | NUR ---
Patient in room ICU 2041. I have received report from Susie STONE and Carlene STONE and had the opportunity to ask questions and assume patient care.
[2019-03-24] MEDS: Trace element-5 inj. 1 ML in AA 5%/cal/electrolyte-TPN/D15W 2,000 ML IV SCH (19:30)
[2019-03-24] MEDS: fat emulsion IV bag 250 ML IV SCH (19:30)
[2019-03-24 19:55] LABS: BASOPHILS % (AUTO) 0 % (0-1); EOSINOPHILS % (AUTO) 0 % (0-6); HEMATOCRIT 24.5 % (35.0-45.0); HEMOGLOBIN 8.5 g/dl (12.0-16.0); MEAN CORPUSCULAR HGB CONC 34.8 g/dL (33.0-36.5)
[2019-03-24 19:57] LABS: LYMPHOCYTES # (AUTO) 0.4 X10'3 (1.1-4.8); LYMPHOCYTES % (AUTO) 2.4 % (21-51); MEAN CORPUSCULAR HEMOGLOBIN 31.9 PG (27.0-31.0); MEAN CORPUSCULAR VOLUME 91.8 FL (78-98); MEAN PLATELET VOLUME 7.5 FL (7.4-10.4); MONOCYTES # (AUTO) 0.4 X10'3 (0-0.9); MONOCYTES % (AUTO) 2.1 % (2-12); NEUTROPHILS # (AUTO) 16.9 X10'3 (1.8-7.7); NEUTROPHILS % (AUTO) 95.5 % (42-75); PLATELET COUNT 186 X10'3 (140-440); RED BLOOD COUNT 2.67 X10'6 (4.20-5.60); WHITE BLOOD COUNT 17.7 X10'3 (4.5-11.0)
[2019-03-24 20:04] LABS: ALANINE AMINOTRANSFERASE 12 U/L (12-78); ALBUMIN 1.7 G/DL (3.4-5.0); ALBUMIN/GLOBULIN RATIO 0.9 (1.1-1.5); ALKALINE PHOSPHATASE 66 IU/L (46-116); ANION GAP 7 (8-16); ASPARTATE AMINO TRANSFERASE 11 U/L (10-37); BILIRUBIN,TOTAL 0.2 MG/DL (0.1-1.0); BLOOD UREA NITROGEN 24 MG/DL (7-18); BUN/CREATININE RATIO 15.3 (6.6-38.0); CHLORIDE 107 MMOL/L (99-107); CREATININE 1.57 MG/DL (0.40-0.90); GLUCOSE 378 MG/DL (70-104); MAGNESIUM 1.8 MG/DL (1.5-2.4); POTASSIUM 3.4 MMOL/L (3.5-5.1); SODIUM 136 MMOL/L (135-145); TOTAL CARBON DIOXIDE 21.7 MMOL/L (24-32); TOTAL PROTEIN 3.7 G/DL (6.4-8.2); eGFR 33 ML/MIN
[2019-03-24] MEDS: insulin glargine (Lantus) pen - multi-dose SQ SCH (20:10)
[2019-03-24 23:53] LABS: EOSINOPHILS % (AUTO) 0 % (0-6); HEMATOCRIT 24.1 % (35.0-45.0); HEMOGLOBIN 8.4 g/dl (12.0-16.0); LYMPHOCYTES # (AUTO) 0.4 X10'3 (1.1-4.8); LYMPHOCYTES % (AUTO) 1.8 % (21-51); MEAN PLATELET VOLUME 7.2 FL (7.4-10.4); MONOCYTES # (AUTO) 0.3 X10'3 (0-0.9); MONOCYTES % (AUTO) 1.3 % (2-12)
[2019-03-24 23:54] LABS: BASOPHILS % (AUTO) 0.1 % (0-1); MEAN CORPUSCULAR HEMOGLOBIN 32.3 PG (27.0-31.0); MEAN CORPUSCULAR VOLUME 92.2 FL (78-98); NEUTROPHILS # (AUTO) 23.7 X10'3 (1.8-7.7); NEUTROPHILS % (AUTO) 96.8 % (42-75); PLATELET COUNT 206 X10'3 (140-440); RED BLOOD COUNT 2.61 X10'6 (4.20-5.60); RED CELL DISTRIBUTION WIDTH 15.5 % (11.5-14.5); WHITE BLOOD COUNT 24.4 X10'3 (4.5-11.0)
[2019-03-25] VITALS (24 sets, daily range): BP systolic 95–140; BP diastolic 39–64
[2019-03-25] MEDS: FENTANYL-0.9 % NACL/PF 100 ML IV PRN (00:09)
[2019-03-25 00:11] LABS: ALANINE AMINOTRANSFERASE 8 U/L (12-78); ALBUMIN 1.6 G/DL (3.4-5.0); ALBUMIN/GLOBULIN RATIO 0.8 (1.1-1.5); ALKALINE PHOSPHATASE 69 IU/L (46-116); ANION GAP 10 (8-16); ASPARTATE AMINO TRANSFERASE 10 U/L (10-37); BILIRUBIN,TOTAL 0.2 MG/DL (0.1-1.0); BLOOD UREA NITROGEN 23 MG/DL (7-18); BUN/CREATININE RATIO 14.8 (6.6-38.0); CALCIUM 7.1 MG/DL (8.5-10.1); CHLORIDE 106 MMOL/L (99-107); CREATININE 1.55 MG/DL (0.40-0.90); GLUCOSE 372 MG/DL (70-104); MAGNESIUM 1.7 MG/DL (1.5-2.4); PHOSPHORUS 1.5 MG/DL (2.3-4.5); POTASSIUM 3.4 MMOL/L (3.5-5.1); SODIUM 136 MMOL/L (135-145); TOTAL CARBON DIOXIDE 19.8 MMOL/L (24-32); TOTAL PROTEIN 3.7 G/DL (6.4-8.2); eGFR 33 ML/MIN
[2019-03-25] MEDS: potassium Cl 20mEq/100mL bag 100 ML IV PRN ×5 (00:49→21:44)
[2019-03-25] MEDS: hydrALAZINE 20mg/ml inj. IV SCH ×4 (01:11→20:00)
[2019-03-25] MEDS ORDERED: sodium phosphate inj. 15 MMOL in dextrose 5%-water 150 ML IV ONE (01:40)
--- NOTE | 2019-03-25 01:40 | NUR ---
i spoke with May regarding Phos of 1.5. she gave order for a one time replacement per protocol. order entered. continue to monitor.
[2019-03-25] MEDS: mineral oil/petrolatum ophthal oint EACHEYE SCH ×4 (01:50→21:45)
[2019-03-25] MEDS: insulin regular, human vial - multi-dose SQ SCH ×2 (01:52→08:08)
[2019-03-25] MEDS: levalbuterol 0.63mg/3ml nebule IH SCH ×4 (03:12→21:21)
[2019-03-25 03:26] LABS: ABG BASE EXCESS -6.2 mmol/L (-2.0-3.0); ABG HCO3 17.6 mmol/L (22.0-26.0); ABG OXYGEN SATURATION 95.8 % (95-98); ABG PCO2 (T) 29.4 mmHg (35.0-45.0); ABG PH (T) 7.398 (7.350-7.450); ABG PO2 (T) 84.4 mmHg (83-108); FCOHb 0.5 % (0.5-1.5); FMetHb 0.3 % (0.3-1.12); PATIENT TEMPERATURE 37.6; PEEP 5 cm H2O; RESPIRATORY RATE 16 b/min; RESPIRATORY RATE (OBSERVED) 20 b/min; TIDAL VOLUME 450 mL; TOTAL HEMOGLOBIN 8.6 G/dl (12.0-16.0)
[2019-03-25 04:15] LABS: BASOPHILS % (AUTO) 0 % (0-1); EOSINOPHILS % (AUTO) 0 % (0-6); HEMATOCRIT 23.7 % (35.0-45.0); HEMOGLOBIN 8.2 g/dl (12.0-16.0); LYMPHOCYTES # (AUTO) 0.6 X10'3 (1.1-4.8); LYMPHOCYTES % (AUTO) 2.2 % (21-51); MEAN CORPUSCULAR HEMOGLOBIN 32.2 PG (27.0-31.0); MEAN CORPUSCULAR HGB CONC 34.5 g/dL (33.0-36.5); MEAN CORPUSCULAR VOLUME 93.4 FL (78-98); MEAN PLATELET VOLUME 7.3 FL (7.4-10.4); MONOCYTES # (AUTO) 0.4 X10'3 (0-0.9); MONOCYTES % (AUTO) 1.4 % (2-12); NEUTROPHILS % (AUTO) 96.4 % (42-75); PLATELET COUNT 176 X10'3 (140-440); RED BLOOD COUNT 2.54 X10'6 (4.20-5.60); RED CELL DISTRIBUTION WIDTH 15.3 % (11.5-14.5)
[2019-03-25] MEDS: sodium bicarbonate (8.4%) inj. 75 MEQ in dextrose 5% water 500ml 500 ML IV SCH ×3 (04:19→17:34)
[2019-03-25 04:20] LABS: ALANINE AMINOTRANSFERASE 12 U/L (12-78); ALBUMIN 1.6 G/DL (3.4-5.0); ALBUMIN/GLOBULIN RATIO 0.7 (1.1-1.5); ALKALINE PHOSPHATASE 81 IU/L (46-116); ANION GAP 9 (8-16); ASPARTATE AMINO TRANSFERASE 10 U/L (10-37); BILIRUBIN,TOTAL 0.3 MG/DL (0.1-1.0); BLOOD UREA NITROGEN 24 MG/DL (7-18); BUN/CREATININE RATIO 16.1 (6.6-38.0); CALCIUM 7.1 MG/DL (8.5-10.1); CHLORIDE 105 MMOL/L (99-107); CREATININE 1.49 MG/DL (0.40-0.90); GLUCOSE 389 MG/DL (70-104); MAGNESIUM 1.7 MG/DL (1.5-2.4); POTASSIUM 3.6 MMOL/L (3.5-5.1); SODIUM 134 MMOL/L (135-145); TOTAL PROTEIN 3.9 G/DL (6.4-8.2); eGFR 35 ML/MIN
[2019-03-25] MEDS: NORepinephrine 8mg/ 250ml NS 250 ML IV SCH (05:01)
[2019-03-25 05:24] LABS: ANISOCYTOSIS 1+; PLATELET ESTIMATE NORMAL; TOTAL CELLS COUNTED 100
[2019-03-25 05:25] LABS: BURR CELLS FEW
--- NOTE | 2019-03-25 06:20 | NUR ---
Problems reprioritized. Patient report given, questions answered & plan of care reviewed with Susie STONE and Carlene STONE.
--- NOTE | 2019-03-25 06:30 | NUR ---
Patient in room ICU 2041. I have received report from Matthias STONE and had the opportunity to ask questions and assume patient care.
[2019-03-25] MEDS: budesonide 0.5mg/2ml UD nebule IH SCH ×2 (06:50→21:22)
[2019-03-25] MEDS: levoTHYROXINE 75mcg tablet PO SCH (07:00)
[2019-03-25] MEDS: lactobacillus rhamnosus 10,000 MMU CELLS/CAPSULE PO SCH ×2 (07:43→20:00)
[2019-03-25] MEDS: K and/or MAG REPLACEMENT MC SCH (08:00)
[2019-03-25 08:01] LABS: BASOPHILS % (AUTO) 0.1 % (0-1); EOSINOPHILS % (AUTO) 0 % (0-6); HEMATOCRIT 22.7 % (35.0-45.0); HEMOGLOBIN 7.8 g/dl (12.0-16.0); LYMPHOCYTES # (AUTO) 0.4 X10'3 (1.1-4.8); LYMPHOCYTES % (AUTO) 1.7 % (21-51); MEAN CORPUSCULAR HEMOGLOBIN 31.8 PG (27.0-31.0); MEAN CORPUSCULAR HGB CONC 34.3 g/dL (33.0-36.5); MEAN CORPUSCULAR VOLUME 92.8 FL (78-98); MEAN PLATELET VOLUME 7.1 FL (7.4-10.4); MONOCYTES # (AUTO) 0.3 X10'3 (0-0.9); MONOCYTES % (AUTO) 1.2 % (2-12); NEUTROPHILS # (AUTO) 22.2 X10'3 (1.8-7.7); PLATELET COUNT 156 X10'3 (140-440); RED BLOOD COUNT 2.45 X10'6 (4.20-5.60); RED CELL DISTRIBUTION WIDTH 15.3 % (11.5-14.5); WHITE BLOOD COUNT 22.9 X10'3 (4.5-11.0)
[2019-03-25] MEDS: CefTRIAXone 2gm/D5W 50ml 50 ML IV SCH (08:02)
[2019-03-25] MEDS: metroNIDAZOLE-Flagyl 500mg/NS 100 ML IV SCH (08:02)
[2019-03-25] MEDS: pantoprazole 40 MG vial IV SCH (08:03)
[2019-03-25] MEDS: nystatin 15 GM powder TP SCH ×3 (08:03→21:45)
[2019-03-25] MEDS: insulin glargine (Lantus) pen - multi-dose SQ SCH (08:06)
[2019-03-25 08:32] LABS: ALANINE AMINOTRANSFERASE 9 U/L (12-78); ALBUMIN 1.5 G/DL (3.4-5.0); ALBUMIN/GLOBULIN RATIO 0.7 (1.1-1.5); ALKALINE PHOSPHATASE 87 IU/L (46-116); ANION GAP 10 (8-16); ASPARTATE AMINO TRANSFERASE 13 U/L (10-37); BILIRUBIN,TOTAL 0.3 MG/DL (0.1-1.0); BLOOD UREA NITROGEN 23 MG/DL (7-18); BUN/CREATININE RATIO 15.2 (6.6-38.0); CHLORIDE 105 MMOL/L (99-107); CREATININE 1.51 MG/DL (0.40-0.90); GLUCOSE 407 MG/DL (70-104); MAGNESIUM 1.7 MG/DL (1.5-2.4); POTASSIUM 3.3 MMOL/L (3.5-5.1); SODIUM 135 MMOL/L (135-145); TOTAL CARBON DIOXIDE 20.4 MMOL/L (24-32); TOTAL PROTEIN 3.8 G/DL (6.4-8.2); eGFR 34 ML/MIN
[2019-03-25] MEDS ORDERED: piperacillin/tazo 3.375gm/50ml 50 ML IV SCH (09:40)
[2019-03-25] MEDS ORDERED: vancomycin/NS 1 GM ADD-VANTAGE 250 ML IV ONE (09:40)
[2019-03-25] MEDS: Dakins solution (1/4 strength) 473ml solution TP SCH ×3 (11:57→21:45)
[2019-03-25] MEDS: levoTHYROXINE sod inj. 100mcg/5 ml vial IV SCH (11:58)
[2019-03-25] MEDS: acetaminophen 650mg rectal suppository RC PRN (11:59)
[2019-03-25] MEDS: piperacillin/tazo 3.375gm/50ml 50 ML IV SCH (14:10)
[2019-03-25] MEDS ORDERED: dextrose 50%-water 50ml dispensing syringe IV PRN (14:25)
[2019-03-25] MEDS: midazolam 100mg in NS 100ml 100 ML IV PRN (15:22)
[2019-03-25] MEDS: Trace element-5 inj. 1 ML in AA 5%/cal/electrolyte-TPN/D15W 2,000 ML IV SCH (15:46)
[2019-03-25] MEDS: insulin regular, human 100 UNIT in normal saline 100ml IV soln 99 ML IV SCH ×4 (16:13→19:36)
[2019-03-25] MEDS: insulin Lispro (HumaLOG) vial - multi-dose SQ SCH ×3 (17:10→19:35)
[2019-03-25] MEDS: fat emulsion IV bag 250 ML IV SCH (18:20)
--- NOTE | 2019-03-25 18:30 | NUR ---
Problems reprioritized. Patient report given, questions answered & plan of care reviewed with Debora STONE.
[2019-03-25 20:35] LABS: ABG BASE EXCESS -3.9 mmol/L (-2.0-3.0); ABG HCO3 22.4 mmol/L (22.0-26.0); ABG OXYGEN SATURATION 88.6 % (95-98); ABG PCO2 (T) 47.9 mmHg (35.0-45.0); ABG PO2 (T) 59.8 mmHg (83-108); FCOHb 0.5 % (0.5-1.5); FMetHb 0.3 % (0.3-1.12); FO2Hb 87.9 % (94-100); MINUTE VOLUME 10 L/min; PATIENT TEMPERATURE 37.7; PEEP 5 cm H2O; RESPIRATORY RATE 16 b/min; RESPIRATORY RATE (OBSERVED) 31 b/min; TIDAL VOLUME 450 mL
[2019-03-25] MEDS ORDERED: furosemide 10 MG/1 ML 10ml inj IV ONE (20:50)
[2019-03-25 20:56] LABS: BASOPHILS % (AUTO) 0.2 % (0-1); EOSINOPHILS % (AUTO) 0.2 % (0-6); HEMATOCRIT 23.8 % (35.0-45.0); HEMOGLOBIN 8.2 g/dl (12.0-16.0); LYMPHOCYTES # (AUTO) 0.3 X10'3 (1.1-4.8); LYMPHOCYTES % (AUTO) 1.4 % (21-51); MEAN CORPUSCULAR HEMOGLOBIN 31.7 PG (27.0-31.0); MEAN CORPUSCULAR HGB CONC 34.4 g/dL (33.0-36.5); MEAN CORPUSCULAR VOLUME 92.2 FL (78-98); MEAN PLATELET VOLUME 7.6 FL (7.4-10.4); MONOCYTES # (AUTO) 0.6 X10'3 (0-0.9); MONOCYTES % (AUTO) 2.6 % (2-12); NEUTROPHILS # (AUTO) 21.1 X10'3 (1.8-7.7); NEUTROPHILS % (AUTO) 95.6 % (42-75); PLATELET COUNT 137 X10'3 (140-440); RED BLOOD COUNT 2.59 X10'6 (4.20-5.60); RED CELL DISTRIBUTION WIDTH 15.5 % (11.5-14.5)
[2019-03-25 21:08] LABS: PARTIAL THROMBOPLASTIN TIME 35 SECONDS (22-32)
[2019-03-25 21:16] LABS: ALANINE AMINOTRANSFERASE 12 U/L (12-78); ALBUMIN 1.3 G/DL (3.4-5.0); ALBUMIN/GLOBULIN RATIO 0.5 (1.1-1.5); ALKALINE PHOSPHATASE 128 IU/L (46-116); ANION GAP 6 (8-16); ASPARTATE AMINO TRANSFERASE 11 U/L (10-37); BILIRUBIN,TOTAL 0.3 MG/DL (0.1-1.0); BLOOD UREA NITROGEN 23 MG/DL (7-18); BUN/CREATININE RATIO 17.3 (6.6-38.0); CALCIUM 7.7 MG/DL (8.5-10.1); CHLORIDE 105 MMOL/L (99-107); CREATININE 1.33 MG/DL (0.40-0.90); GLUCOSE 333 MG/DL (70-104); MAGNESIUM 1.7 MG/DL (1.5-2.4); PHOSPHORUS 2.2 MG/DL (2.3-4.5); POTASSIUM 3.1 MMOL/L (3.5-5.1); SODIUM 135 MMOL/L (135-145); eGFR 40 ML/MIN
[2019-03-25] MEDS: [UNRECOGNIZED DRUG - REMARK] IV SCH ×2 (21:45)
[2019-03-25] MEDS: heparin, porcine 5000 units/ml vial SQ SCH (21:45)
--- NOTE | 2019-03-25 22:36 | NUR ---
Late entry@1830: Patient in room ICU 2041. I have received report from Pasquale STONE and had the opportunity to ask questions and assume patient care. Art line dampened, not functional. Using non invasive cuff to monitor. BP:167/65. Titrating Levophed down as tolerated. Pt febrile, cooling blanket in place. 1944: Art line d/c'd, dressing applied after hemostasis achieved. Pt tachypneic, lung sounds coarse, sats 92% on 60%FiO2. Doppler in use to detect pulses for ABG. Chest xray obtained. Results reviewed. Joann Brooks updated, orders received. Titrating sedation and pain medication for patient comfort. 2235: Titrating Levophed. Sats improved with increased FiO2 and PEEP. Cooling blanket off, patient no longer febrile. Respiratory rate reduced with increase to sedation and pain medication. Will continue to monitor.
[2019-03-26] VITALS (24 sets, daily range): BP systolic 87–157; BP diastolic 41–86
[2019-03-26] MEDS: potassium Cl 20mEq/100mL bag 100 ML IV PRN ×4 (01:19→13:59)
[2019-03-26] MEDS: FENTANYL-0.9 % NACL/PF 100 ML IV PRN ×3 (01:20→19:39)
[2019-03-26] MEDS: insulin Lispro (HumaLOG) vial - multi-dose SQ SCH ×2 (01:21→03:51)
[2019-03-26] MEDS: furosemide 40mg/4ml inj IV SCH ×3 (01:29→15:56)
[2019-03-26] MEDS: mineral oil/petrolatum ophthal oint EACHEYE SCH ×4 (01:30→19:50)
[2019-03-26] MEDS: hydrALAZINE 20mg/ml inj. IV SCH ×4 (01:30→19:31)
[2019-03-26] MEDS: piperacillin/tazo 3.375gm/50ml 50 ML IV SCH ×3 (01:30→15:46)
[2019-03-26] MEDS: NORepinephrine 8mg/ 250ml NS 250 ML IV SCH ×2 (02:33→20:05)
[2019-03-26] MEDS: levalbuterol 0.63mg/3ml nebule IH SCH ×4 (02:34→20:42)
[2019-03-26 03:06] LABS: ABG HCO3 20.9 mmol/L (22.0-26.0); ABG OXYGEN SATURATION 96.1 % (95-98); ABG PCO2 (T) 36.4 mmHg (35.0-45.0); ABG PH (T) 7.375 (7.350-7.450); ABG PO2 (T) 78.8 mmHg (83-108); FCOHb 0.4 % (0.5-1.5); FMetHb 0.3 % (0.3-1.12); FO2Hb 95.4 % (94-100); MINUTE VOLUME 9 L/min; PATIENT TEMPERATURE 36.3; PEEP 8 cm H2O; RESPIRATORY RATE 20 b/min; RESPIRATORY RATE (OBSERVED) 20 b/min; TIDAL VOLUME 450 mL; TOTAL HEMOGLOBIN 9.9 G/dl (12.0-16.0)
[2019-03-26] MEDS: normal saline 1000ml 1,000 ML IV SCH (03:28)
[2019-03-26] MEDS: insulin regular, human 100 UNIT in normal saline 100ml IV soln 99 ML IV SCH ×8 (03:53→17:48)
--- NOTE | 2019-03-26 06:26 | NUR ---
Problems reprioritized. Patient report given, questions answered & plan of care reviewed with Moira STONE.
--- NOTE | 2019-03-26 06:28 | NUR ---
Patient in room ICU 2041. I have received report from Debora STONE and had the opportunity to ask questions and assume patient care with Moira Rothman RN. Addendum: 03/26/19 at 0629 by Marlyn Andujar RN Amended: Links added.
[2019-03-26] MEDS: budesonide 0.5mg/2ml UD nebule IH SCH ×2 (06:55→20:42)
[2019-03-26] MEDS: nystatin 15 GM powder TP SCH ×3 (07:25→20:05)
[2019-03-26] MEDS: levoTHYROXINE sod inj. 100mcg/5 ml vial IV SCH (07:26)
[2019-03-26] MEDS: heparin, porcine 5000 units/ml vial SQ SCH ×2 (07:26→19:40)
[2019-03-26] MEDS: pantoprazole 40 MG vial IV SCH (07:26)
[2019-03-26] MEDS: K and/or MAG REPLACEMENT MC SCH (07:27)
[2019-03-26] MEDS: lactobacillus rhamnosus 10,000 MMU CELLS/CAPSULE PO SCH ×2 (07:36→19:40)
[2019-03-26 08:11] LABS: HEMATOCRIT 22.5 % (35.0-45.0); HEMOGLOBIN 7.6 g/dl (12.0-16.0); MEAN CORPUSCULAR HEMOGLOBIN 31.6 PG (27.0-31.0); MEAN CORPUSCULAR HGB CONC 33.8 g/dL (33.0-36.5); MEAN CORPUSCULAR VOLUME 93.5 FL (78-98); PLATELET COUNT 135 X10'3 (140-440); RED BLOOD COUNT 2.41 X10'6 (4.20-5.60); RED CELL DISTRIBUTION WIDTH 15.5 % (11.5-14.5); WHITE BLOOD COUNT 24.9 X10'3 (4.5-11.0)
[2019-03-26 08:24] LABS: ALANINE AMINOTRANSFERASE 12 U/L (12-78); ALBUMIN 1.2 G/DL (3.4-5.0); ALBUMIN/GLOBULIN RATIO 0.4 (1.1-1.5); ALKALINE PHOSPHATASE 132 IU/L (46-116); ANION GAP 7 (8-16); ASPARTATE AMINO TRANSFERASE 11 U/L (10-37); BILIRUBIN,TOTAL 0.5 MG/DL (0.1-1.0); BLOOD UREA NITROGEN 24 MG/DL (7-18); BUN/CREATININE RATIO 18.9 (6.6-38.0); CALCIUM 8.1 MG/DL (8.5-10.1); CHLORIDE 106 MMOL/L (99-107); CREATININE 1.27 MG/DL (0.40-0.90); GLUCOSE 241 MG/DL (70-104); MAGNESIUM 1.5 MG/DL (1.5-2.4); SODIUM 137 MMOL/L (135-145); TOTAL CARBON DIOXIDE 24.4 MMOL/L (24-32); eGFR 42 ML/MIN
[2019-03-26 08:33] LABS: TOTAL CELLS COUNTED 100
[2019-03-26 08:34] LABS: ANISOCYTOSIS 1+; PLATELET ESTIMATE DECREASED
[2019-03-26] MEDS: Dakins solution (1/4 strength) 473ml solution TP SCH ×3 (08:47→20:06)
--- NOTE | 2019-03-26 10:00 | NUR ---
Dr. Chan in to see pt. Observed wound. No new orders received.
--- NOTE | 2019-03-26 10:15 | NUR ---
Dr. Melton in to see pt. Bronch at bedside done. per Dr. Melton.
[2019-03-26] MEDS: Trace element-5 inj. 1 ML in AA 5%/cal/electrolyte-TPN/D15W 2,000 ML IV SCH (10:37)
--- NOTE | 2019-03-26 10:45 | NUR ---
K+ 3.0 KCL being replaced now. 2nd dose infusing.
[2019-03-26] MEDS: [UNRECOGNIZED DRUG - REMARK] IV SCH ×2 (11:23)
--- NOTE | 2019-03-26 14:53 | NUR ---
Paco trigger: Pt tolerating TPN at goal; K 3.0 today receiving continuous replacement in addition to lasix. Phos 2.2 but up from 1.5 yesterday and Mg WNL so likely not refeeding. Pt new bed scale wt 126.8kg w/ +12L fluid positive past 3 days so most accurate wt is likely 117kg first scaled wt this admit. Colostomy output 600ml yesterday and 200ml so far today; to continue TPN per MD note. Pt would likely benefit from increase in TPN if no enteral nutrition to start given updated wt and wound healing needs on ventilator; recs below. ORACIO d/w RN regarding trickle TF per surgeon approval given colostomy output. Paco 12 w/ abdomen surgical site; receiving MVI w/ TPN. Will need colostomy ed once stable prior to d/c. Will continue to monitor. Recommend: 1. Recommend 2:1 TPN using Clinimix E 5/15 to run continuously at 95 ml/hr will provide total volume of 2280 ml, 1619 cals, 114 g protein, 2.44 mg/kg/min CHO loading. 2. Separate 20% intralipid at 10 ml/hr providing total of 120 ml per day and 24 grams of fat. 3. Per MD approval; increase TPN to goal 110ml/hr using Clinimix E 5/15 w/ same intralipid infusions; to provide 2640ml fluid, 132g AA, 396g Dex(2.17), and 1586 total non-protein kcals. 4. Prealbumin/TG Q /; daily weights 5. IF OK per MD; trickle TF using Vital High Protein at 10ml/hr in addition to parenteral nutrition Addendum: 03/26/19 at [address] Amended: Links added.
--- NOTE | 2019-03-26 16:42 | NUR ---
Ostomy bag leaked onto wound bed while turning pt. New appliance bag applied after cleansing brittney wound area. Abd. wounds x 2 cleansed and redressed using Dakin's solution.
--- NOTE | 2019-03-26 18:15 | NUR ---
Problems reprioritized. Patient report given, questions answered & plan of care reviewed with Matthias STONE. Addendum: 03/26/19 at 1815 by Marlyn Andujar RN Amended: Links added.
--- NOTE | 2019-03-26 18:30 | NUR ---
Patient in room ICU 2041. I have received report from Marlyn STONE and Moira STONE and had the opportunity to ask questions and assume patient care.
[2019-03-26] MEDS: fat emulsion IV bag 250 ML IV SCH (19:39)
[2019-03-26 21:00] LABS: BASOPHILS % (AUTO) 0.1 % (0-1); EOSINOPHILS # (AUTO) 0.1 X10'3 (0-0.9); EOSINOPHILS % (AUTO) 0.3 % (0-6); HEMATOCRIT 22.6 % (35.0-45.0); HEMOGLOBIN 7.7 g/dl (12.0-16.0); LYMPHOCYTES # (AUTO) 0.8 X10'3 (1.1-4.8); LYMPHOCYTES % (AUTO) 2.7 % (21-51); MEAN CORPUSCULAR HEMOGLOBIN 31.5 PG (27.0-31.0); MEAN CORPUSCULAR HGB CONC 33.9 g/dL (33.0-36.5); MEAN CORPUSCULAR VOLUME 92.7 FL (78-98); MEAN PLATELET VOLUME 8.7 FL (7.4-10.4); MONOCYTES # (AUTO) 1.5 X10'3 (0-0.9); MONOCYTES % (AUTO) 4.9 % (2-12); NEUTROPHILS # (AUTO) 28.3 X10'3 (1.8-7.7); PLATELET COUNT 149 X10'3 (140-440); RED BLOOD COUNT 2.44 X10'6 (4.20-5.60); RED CELL DISTRIBUTION WIDTH 15.6 % (11.5-14.5)
[2019-03-26 21:02] LABS: WHITE BLOOD COUNT 30.8 X10'3 (4.5-11.0)
[2019-03-26 21:08] LABS: ALANINE AMINOTRANSFERASE 94 U/L (12-78); ALBUMIN 1.2 G/DL (3.4-5.0); ALBUMIN/GLOBULIN RATIO 0.4 (1.1-1.5); ALKALINE PHOSPHATASE 255 IU/L (46-116); ANION GAP 9 (8-16); ASPARTATE AMINO TRANSFERASE 189 U/L (10-37); BLOOD UREA NITROGEN 26 MG/DL (7-18); BUN/CREATININE RATIO 18.8 (6.6-38.0); CALCIUM 8.1 MG/DL (8.5-10.1); CHLORIDE 106 MMOL/L (99-107); CREATININE 1.38 MG/DL (0.40-0.90); GLUCOSE 106 MG/DL (70-104); MAGNESIUM 1.4 MG/DL (1.5-2.4); POTASSIUM 3.5 MMOL/L (3.5-5.1); SODIUM 137 MMOL/L (135-145); TOTAL CARBON DIOXIDE 22.3 MMOL/L (24-32); TOTAL PROTEIN 4.4 G/DL (6.4-8.2); eGFR 38 ML/MIN
[2019-03-27] VITALS (27 sets, daily range): BP systolic 91–151; BP diastolic 44–73
[2019-03-27] MEDS: piperacillin/tazo 3.375gm/50ml 50 ML IV SCH ×3 (00:07→15:35)
[2019-03-27] MEDS: furosemide 40mg/4ml inj IV SCH ×3 (00:07→15:34)
[2019-03-27] MEDS: hydrALAZINE 20mg/ml inj. IV SCH ×4 (02:00→19:16)
[2019-03-27] MEDS: mineral oil/petrolatum ophthal oint EACHEYE SCH ×4 (02:08→19:43)
[2019-03-27] MEDS: levalbuterol 0.63mg/3ml nebule IH SCH ×4 (03:03→20:48)
[2019-03-27 03:31] LABS: ABG BASE EXCESS -3.2 mmol/L (-2.0-3.0); ABG HCO3 20.3 mmol/L (22.0-26.0); ABG OXYGEN SATURATION 95.1 % (95-98); ABG PH (T) 7.436 (7.350-7.450); ABG PO2 (T) 75.6 mmHg (83-108); ALLEN'S TEST Positive; FCOHb 0.2 % (0.5-1.5); FMetHb 0.3 % (0.3-1.12); FO2Hb 94.6 % (94-100); MINUTE VOLUME 9 L/min; PATIENT TEMPERATURE 37.5; PEEP 8 cm H2O; RESPIRATORY RATE 20 b/min; RESPIRATORY RATE (OBSERVED) 20 b/min; TIDAL VOLUME 450 mL; TOTAL HEMOGLOBIN 8.6 G/dl (12.0-16.0)
[2019-03-27 03:47] LABS: BASOPHILS % (AUTO) 0.1 % (0-1); EOSINOPHILS % (AUTO) 0.1 % (0-6); HEMATOCRIT 22.5 % (35.0-45.0); HEMOGLOBIN 7.6 g/dl (12.0-16.0); LYMPHOCYTES # (AUTO) 0.8 X10'3 (1.1-4.8); LYMPHOCYTES % (AUTO) 3.6 % (21-51); MEAN CORPUSCULAR HEMOGLOBIN 31.3 PG (27.0-31.0); MEAN CORPUSCULAR HGB CONC 33.6 g/dL (33.0-36.5); MEAN CORPUSCULAR VOLUME 93.3 FL (78-98); MEAN PLATELET VOLUME 8.6 FL (7.4-10.4); MONOCYTES # (AUTO) 1.2 X10'3 (0-0.9); MONOCYTES % (AUTO) 5.4 % (2-12); NEUTROPHILS # (AUTO) 20.8 X10'3 (1.8-7.7); NEUTROPHILS % (AUTO) 90.8 % (42-75); PLATELET COUNT 132 X10'3 (140-440); RED BLOOD COUNT 2.41 X10'6 (4.20-5.60); RED CELL DISTRIBUTION WIDTH 15.5 % (11.5-14.5); WHITE BLOOD COUNT 22.9 X10'3 (4.5-11.0)
[2019-03-27 03:54] LABS: ALANINE AMINOTRANSFERASE 363 U/L (12-78); ALBUMIN 1.2 G/DL (3.4-5.0); ALBUMIN/GLOBULIN RATIO 0.4 (1.1-1.5); ALKALINE PHOSPHATASE 161 IU/L (46-116); ANION GAP 7 (8-16); ASPARTATE AMINO TRANSFERASE 756 U/L (10-37); BILIRUBIN,TOTAL 0.9 MG/DL (0.1-1.0); BLOOD UREA NITROGEN 28 MG/DL (7-18); BUN/CREATININE RATIO 19.4 (6.6-38.0); CALCIUM 8.1 MG/DL (8.5-10.1); CHLORIDE 105 MMOL/L (99-107); CREATININE 1.44 MG/DL (0.40-0.90); GLUCOSE 155 MG/DL (70-104); MAGNESIUM 1.5 MG/DL (1.5-2.4); PHOSPHORUS 2.2 MG/DL (2.3-4.5); POTASSIUM 3.1 MMOL/L (3.5-5.1); SODIUM 136 MMOL/L (135-145); TOTAL CARBON DIOXIDE 23.8 MMOL/L (24-32); TOTAL PROTEIN 4.4 G/DL (6.4-8.2); eGFR 36 ML/MIN
[2019-03-27 04:53] LABS: TOTAL CELLS COUNTED 100
[2019-03-27 04:54] LABS: ANISOCYTOSIS 1+; PLATELET ESTIMATE DECREASED
[2019-03-27] MEDS: potassium Cl 20mEq/100mL bag 100 ML IV PRN ×5 (05:05→22:49)
[2019-03-27] MEDS: Trace element-5 inj. 1 ML in AA 5%/cal/electrolyte-TPN/D15W 2,000 ML IV SCH (05:55)
[2019-03-27] MEDS: insulin regular, human 100 UNIT in normal saline 100ml IV soln 99 ML IV SCH ×4 (05:55→12:43)
--- NOTE | 2019-03-27 06:29 | NUR ---
Problems reprioritized. Patient report given, questions answered & plan of care reviewed with Moira STONE.
--- NOTE | 2019-03-27 06:30 | NUR ---
Patient in room ICU 2041. I have received report from Matthias STONE and had the opportunity to ask questions and assume patient care. Patient laying in bed with eyes closed, on ventilator 45% fio2 peep of 8 sating 96-99%, forrest draining to gravity, colostomy to L side of lower abdomen, IV gtts infusing to R IJ, vital signs stable will continue to monitor
[2019-03-27] MEDS: insulin Lispro (HumaLOG) vial - multi-dose SQ SCH ×3 (07:00→17:00)
[2019-03-27] MEDS: nystatin 15 GM powder TP SCH ×3 (07:48→20:01)
[2019-03-27] MEDS: levoTHYROXINE sod inj. 100mcg/5 ml vial IV SCH (07:48)
[2019-03-27] MEDS: heparin, porcine 5000 units/ml vial SQ SCH ×2 (07:49→19:44)
[2019-03-27] MEDS: pantoprazole 40 MG vial IV SCH (07:49)
[2019-03-27] MEDS: lactobacillus rhamnosus 10,000 MMU CELLS/CAPSULE PO SCH ×2 (07:50→19:44)
[2019-03-27] MEDS: Dakins solution (1/4 strength) 473ml solution TP SCH ×3 (07:50→20:01)
[2019-03-27] MEDS: budesonide 0.5mg/2ml UD nebule IH SCH ×2 (09:02→20:48)
--- NOTE | 2019-03-27 10:15 | NUR ---
Informed Dr Miradna of patients low phos level, he stated that he did not want to replace it.
[2019-03-27] MEDS: [UNRECOGNIZED DRUG - REMARK] IV SCH ×2 (11:39)
--- NOTE | 2019-03-27 12:52 | NUR ---
Patient laying in bed with eyes closed, versed has been off since 0700 on the 03/26. Patient responds to suctioning with a cough. During the abdominal dressing change there was no painful response from patient. Dr wong, stated to continue to monitor
[2019-03-27] MEDS: FENTANYL-0.9 % NACL/PF 100 ML IV PRN (12:59)
--- NOTE | 2019-03-27 18:10 | NUR ---
Problems reprioritized. Patient report given, questions answered & plan of care reviewed with Matthias Clement.
--- NOTE | 2019-03-27 18:19 | NUR ---
Patient in room ICU 2041. I have received report from Moira STONE and had the opportunity to ask questions and assume patient care.
[2019-03-27] MEDS: fat emulsion IV bag 250 ML IV SCH (19:46)
[2019-03-27 20:14] LABS: BASOPHILS % (AUTO) 0.3 % (0-1); EOSINOPHILS # (AUTO) 0.1 X10'3 (0-0.9); EOSINOPHILS % (AUTO) 0.3 % (0-6); LYMPHOCYTES # (AUTO) 1.6 X10'3 (1.1-4.8); LYMPHOCYTES % (AUTO) 9.5 % (21-51); MEAN CORPUSCULAR HEMOGLOBIN 31.4 PG (27.0-31.0); MEAN CORPUSCULAR HGB CONC 33.7 g/dL (33.0-36.5); MEAN CORPUSCULAR VOLUME 93.1 FL (78-98); MEAN PLATELET VOLUME 9.4 FL (7.4-10.4); MONOCYTES % (AUTO) 6.1 % (2-12); NEUTROPHILS # (AUTO) 14.3 X10'3 (1.8-7.7); NEUTROPHILS % (AUTO) 83.8 % (42-75); PLATELET COUNT 114 X10'3 (140-440); RED BLOOD COUNT 2.17 X10'6 (4.20-5.60); RED CELL DISTRIBUTION WIDTH 15.5 % (11.5-14.5); WHITE BLOOD COUNT 17.1 X10'3 (4.5-11.0)
[2019-03-27 20:19] LABS: HEMATOCRIT 20.2 % (35.0-45.0); HEMOGLOBIN 6.8 g/dl (12.0-16.0)
[2019-03-27 20:23] LABS: ALANINE AMINOTRANSFERASE 317 U/L (12-78); ALBUMIN 1.1 G/DL (3.4-5.0); ALBUMIN/GLOBULIN RATIO 0.3 (1.1-1.5); ALKALINE PHOSPHATASE 154 IU/L (46-116); ANION GAP 8 (8-16); ASPARTATE AMINO TRANSFERASE 308 U/L (10-37); BILIRUBIN,TOTAL 0.9 MG/DL (0.1-1.0); BLOOD UREA NITROGEN 35 MG/DL (7-18); BUN/CREATININE RATIO 26.9 (6.6-38.0); CALCIUM 8.6 MG/DL (8.5-10.1); CHLORIDE 105 MMOL/L (99-107); GLUCOSE 127 MG/DL (70-104); MAGNESIUM 1.5 MG/DL (1.5-2.4); SODIUM 139 MMOL/L (135-145); TOTAL CARBON DIOXIDE 25.7 MMOL/L (24-32); TOTAL PROTEIN 4.4 G/DL (6.4-8.2); eGFR 41 ML/MIN
[2019-03-27 20:26] LABS: POTASSIUM 2.8 MMOL/L (3.5-5.1)
--- NOTE | 2019-03-27 20:31 | NUR ---
i called May FINANCIAL INTERNSHIP regarding critical H/H of 6.8/21.2 and K of 2.8. she is aware. order for 1 unit PRBC's given. continue to monitor.
[2019-03-28] VITALS (24 sets, daily range): BP systolic 95–169; BP diastolic 49–86
[2019-03-28] MEDS: potassium Cl 20mEq/100mL bag 100 ML IV PRN ×5 (00:05→13:40)
[2019-03-28] MEDS: furosemide 40mg/4ml inj IV SCH ×4 (01:04→23:37)
[2019-03-28] MEDS: hydrALAZINE 20mg/ml inj. IV SCH ×4 (01:05→19:11)
[2019-03-28] MEDS: mineral oil/petrolatum ophthal oint EACHEYE SCH ×4 (01:05→20:01)
[2019-03-28] MEDS: piperacillin/tazo 3.375gm/50ml 50 ML IV SCH ×2 (01:05→07:28)
[2019-03-28] MEDS: levalbuterol 0.63mg/3ml nebule IH SCH ×4 (03:21→20:54)
[2019-03-28] MEDS: Trace element-5 inj. 1 ML in AA 5%/cal/electrolyte-TPN/D15W 2,000 ML IV SCH ×2 (03:27→23:25)
[2019-03-28] MEDS: insulin regular, human 100 UNIT in normal saline 100ml IV soln 99 ML IV SCH ×4 (03:29→13:01)
[2019-03-28] MEDS: normal saline 1000ml 1,000 ML IV SCH (03:30)
[2019-03-28 03:41] LABS: BASOPHILS % (AUTO) 0.3 % (0-1); EOSINOPHILS # (AUTO) 0.1 X10'3 (0-0.9); EOSINOPHILS % (AUTO) 0.4 % (0-6); HEMATOCRIT 24.8 % (35.0-45.0); HEMOGLOBIN 8.4 g/dl (12.0-16.0); LYMPHOCYTES # (AUTO) 1.6 X10'3 (1.1-4.8); LYMPHOCYTES % (AUTO) 10.9 % (21-51); MEAN CORPUSCULAR HEMOGLOBIN 31.6 PG (27.0-31.0); MEAN CORPUSCULAR HGB CONC 33.8 g/dL (33.0-36.5); MEAN CORPUSCULAR VOLUME 93.4 FL (78-98); MEAN PLATELET VOLUME 9.4 FL (7.4-10.4); MONOCYTES # (AUTO) 0.9 X10'3 (0-0.9); MONOCYTES % (AUTO) 6.4 % (2-12); PLATELET COUNT 96 X10'3 (140-440); RED BLOOD COUNT 2.65 X10'6 (4.20-5.60); RED CELL DISTRIBUTION WIDTH 15.1 % (11.5-14.5); WHITE BLOOD COUNT 14.7 X10'3 (4.5-11.0)
[2019-03-28 03:51] LABS: ABG BASE EXCESS -2.6 mmol/L (-2.0-3.0); ABG HCO3 20.8 mmol/L (22.0-26.0); ABG OXYGEN SATURATION 96.3 % (95-98); ABG PCO2 (T) 30.5 mmHg (35.0-45.0); ABG PH (T) 7.449 (7.350-7.450); ABG PO2 (T) 82.8 mmHg (83-108); FCOHb 0.1 % (0.5-1.5); FMetHb 0.3 % (0.3-1.12); FO2Hb 95.9 % (94-100); MINUTE VOLUME 12 L/min; PATIENT TEMPERATURE 36.7; PEEP 8 cm H2O; RESPIRATORY RATE 18 b/min; RESPIRATORY RATE (OBSERVED) 25 b/min; TIDAL VOLUME 450 mL; TOTAL HEMOGLOBIN 10.5 G/dl (12.0-16.0)
[2019-03-28 03:52] LABS: PARTIAL THROMBOPLASTIN TIME 26 SECONDS (22-32)
[2019-03-28 03:54] LABS: ALANINE AMINOTRANSFERASE 278 U/L (12-78); ALBUMIN 1.1 G/DL (3.4-5.0); ALBUMIN/GLOBULIN RATIO 0.3 (1.1-1.5); ALKALINE PHOSPHATASE 160 IU/L (46-116); ANION GAP 8 (8-16); ASPARTATE AMINO TRANSFERASE 207 U/L (10-37); BILIRUBIN,TOTAL 1.3 MG/DL (0.1-1.0); BLOOD UREA NITROGEN 39 MG/DL (7-18); BUN/CREATININE RATIO 29.3 (6.6-38.0); CALCIUM 8.7 MG/DL (8.5-10.1); CHLORIDE 106 MMOL/L (99-107); CREATININE 1.33 MG/DL (0.40-0.90); GLUCOSE 126 MG/DL (70-104); MAGNESIUM 1.6 MG/DL (1.5-2.4); POTASSIUM 3.3 MMOL/L (3.5-5.1); SODIUM 139 MMOL/L (135-145); TOTAL CARBON DIOXIDE 24.9 MMOL/L (24-32); TOTAL PROTEIN 4.5 G/DL (6.4-8.2); TRIGLYCERIDES 97 MG/DL (20-135); eGFR 40 ML/MIN
--- NOTE | 2019-03-28 06:10 | NUR ---
Kirsten the pt's Daughter called at this time. she was present when pt was first transferred down to ICU and went home at that time. i let her know that the pt is very sick. she is aware that pt will go to an MRI this morning. she stated that she would come visit shorty. she was tearful. Addendum: 03/28/19 at 0659 by Matthias Noel RN wrong pt.
--- NOTE | 2019-03-28 06:30 | NUR ---
Problems reprioritized. Patient report given, questions answered & plan of care reviewed with Moira STONE and Marlyn RN.
[2019-03-28] MEDS: insulin Lispro (HumaLOG) vial - multi-dose SQ SCH ×2 (07:00→11:57)
--- NOTE | 2019-03-28 07:11 | NUR ---
Patient in room ICU 2043. I have received report from Matthias STONE and had the opportunity to ask questions and assume patient care with Moira Rothman RN preceptor. Addendum: 03/28/19 at 0712 by Marlyn Andujar RN Amended: Links added.
[2019-03-28] MEDS: heparin, porcine 5000 units/ml vial SQ SCH ×2 (07:29→20:00)
[2019-03-28] MEDS: pantoprazole 40 MG vial IV SCH (07:29)
[2019-03-28] MEDS: lactobacillus rhamnosus 10,000 MMU CELLS/CAPSULE PO SCH ×2 (07:29→20:02)
[2019-03-28] MEDS: Dakins solution (1/4 strength) 473ml solution TP SCH ×3 (07:30→20:02)
[2019-03-28] MEDS: nystatin 15 GM powder TP SCH ×3 (07:35→20:01)
[2019-03-28] MEDS: levoTHYROXINE sod inj. 100mcg/5 ml vial IV SCH (07:36)
[2019-03-28] MEDS: FENTANYL-0.9 % NACL/PF 100 ML IV PRN ×2 (07:52→23:25)
[2019-03-28] MEDS: budesonide 0.5mg/2ml UD nebule IH SCH ×2 (08:33→20:55)
[2019-03-28] MEDS ORDERED: VANCOMYCIN LEVEL IV ONE (09:30)
[2019-03-28] MEDS: [UNRECOGNIZED DRUG - REMARK] IV SCH ×2 (10:26)
--- NOTE | 2019-03-28 10:52 | NUR ---
NOTE FROM ROUNDS: Turn PEEP down to 5 and obtain weaning parameters per Dr. Miranda.
[2019-03-28] MEDS ORDERED: glucagon, human recombinant 1mg kit SUBCUT PRN (13:25)
[2019-03-28] MEDS ORDERED: dextrose 50%-water 50ml dispensing syringe IV PRN ×2 (13:25)
[2019-03-28] MEDS ORDERED: dextrose ORAL solution 15 GM/59 ML bottle PO PRN ×2 (13:25)
--- NOTE | 2019-03-28 15:13 | NUR ---
Attempted to turn Fentanyl down to see if pt would arouse. Pt. became hypertensive and tachypnic. Fentanyl placed back at rate of 100.
[2019-03-28] MEDS: piperacillin/tazo 4.5gm/100ml 100 ML IV SCH ×2 (16:09→23:25)
--- NOTE | 2019-03-28 18:17 | NUR ---
Problems reprioritized. Patient report given, questions answered & plan of care reviewed with Matthias STONE.
--- NOTE | 2019-03-28 18:30 | NUR ---
Patient in room ICU 2043. I have received report from Moira STONE and Marlyn STONE and had the opportunity to ask questions and assume patient care.
[2019-03-28] MEDS: fat emulsion IV bag 250 ML IV SCH (20:02)
[2019-03-28] MEDS: insulin glargine (Lantus) pen - multi-dose SQ SCH (20:15)
[2019-03-28] MEDS: NORepinephrine 8mg/ 250ml NS 250 ML IV SCH (21:45)
[2019-03-28] MEDS: insulin regular, human vial - multi-dose SQ SCH (22:19)
--- NOTE | 2019-03-28 22:30 | NUR ---
Per day shift report, Dr Miranda ordered 30units of Lantus, and then wanted the insulin drip turned off a couple hours after and the pt to be transitioned to the hyperglycemic protocol. she was not charted or ordered or mentioned in nursing or MD notes. i spoke with Lucille MIDDLEWARE CONSULTANT and she would like to do what was reported from day shift. Lantus was given at 2014. insulin drip turned off at 2215, and patient covered with SQ Humulin per protocol starting at a level 2. continue to monitor.
[2019-03-29] VITALS (25 sets, daily range): BP systolic 128–236; BP diastolic 49–105
[2019-03-29] MEDS: hydrALAZINE 20mg/ml inj. IV SCH ×4 (02:16→20:08)
[2019-03-29] MEDS: mineral oil/petrolatum ophthal oint EACHEYE SCH ×4 (02:16→20:10)
[2019-03-29] MEDS: insulin regular, human vial - multi-dose SQ SCH ×4 (02:18→20:58)
[2019-03-29 02:40] LABS: BASOPHILS % (AUTO) 0.1 % (0-1); EOSINOPHILS # (AUTO) 0.1 X10'3 (0-0.9); EOSINOPHILS % (AUTO) 0.6 % (0-6); HEMATOCRIT 26.5 % (35.0-45.0); HEMOGLOBIN 8.9 g/dl (12.0-16.0); LYMPHOCYTES % (AUTO) 8.7 % (21-51); MEAN CORPUSCULAR HEMOGLOBIN 31.2 PG (27.0-31.0); MEAN CORPUSCULAR HGB CONC 33.6 g/dL (33.0-36.5); MEAN CORPUSCULAR VOLUME 92.8 FL (78-98); MEAN PLATELET VOLUME 10.9 FL (7.4-10.4); MONOCYTES # (AUTO) 0.8 X10'3 (0-0.9); MONOCYTES % (AUTO) 3.4 % (2-12); NEUTROPHILS # (AUTO) 19.9 X10'3 (1.8-7.7); NEUTROPHILS % (AUTO) 87.2 % (42-75); PLATELET COUNT 169 X10'3 (140-440); RED BLOOD COUNT 2.86 X10'6 (4.20-5.60); RED CELL DISTRIBUTION WIDTH 15.5 % (11.5-14.5); WHITE BLOOD COUNT 22.8 X10'3 (4.5-11.0)
[2019-03-29 02:46] LABS: PARTIAL THROMBOPLASTIN TIME 24 SECONDS (22-32)
[2019-03-29 02:53] LABS: ALANINE AMINOTRANSFERASE 219 U/L (12-78); ALBUMIN 1.1 G/DL (3.4-5.0); ALBUMIN/GLOBULIN RATIO 0.3 (1.1-1.5); ALKALINE PHOSPHATASE 206 IU/L (46-116); ANION GAP 10 (8-16); ASPARTATE AMINO TRANSFERASE 123 U/L (10-37); BILIRUBIN,TOTAL 1.2 MG/DL (0.1-1.0); BLOOD UREA NITROGEN 46 MG/DL (7-18); BUN/CREATININE RATIO 33.8 (6.6-38.0); CALCIUM 8.2 MG/DL (8.5-10.1); CHLORIDE 104 MMOL/L (99-107); CREATININE 1.36 MG/DL (0.40-0.90); GLUCOSE 261 MG/DL (70-104); MAGNESIUM 1.6 MG/DL (1.5-2.4); PHOSPHORUS 3.4 MG/DL (2.3-4.5); SODIUM 137 MMOL/L (135-145); TOTAL CARBON DIOXIDE 22.9 MMOL/L (24-32); TOTAL PROTEIN 4.8 G/DL (6.4-8.2); eGFR 39 ML/MIN
[2019-03-29 02:55] LABS: POTASSIUM 2.8 MMOL/L (3.5-5.1)
[2019-03-29 03:00] LABS: TOTAL CELLS COUNTED 100
[2019-03-29] MEDS: potassium Cl 20mEq/100mL bag 100 ML IV PRN ×8 (03:00→20:11)
[2019-03-29 03:01] LABS: BURR CELLS 2+; ELLIPTOCYTES FEW; PLATELET ESTIMATE NORMAL; POLYCHROMASIA FEW
[2019-03-29 03:02] LABS: LARGE PLATELETS MODERATE
[2019-03-29] MEDS: levalbuterol 0.63mg/3ml nebule IH SCH ×4 (03:29→21:14)
[2019-03-29 03:56] LABS: ABG BASE EXCESS -1.7 mmol/L (-2.0-3.0); ABG HCO3 20.3 mmol/L (22.0-26.0); ABG OXYGEN SATURATION 93.7 % (95-98); ABG PCO2 (T) 25.9 mmHg (35.0-45.0); ABG PH (T) 7.511 (7.350-7.450); ABG PO2 (T) 64.7 mmHg (83-108); FCOHb 0.3 % (0.5-1.5); FMetHb 0.3 % (0.3-1.12); FO2Hb 93.1 % (94-100); MINUTE VOLUME 15 L/min; PATIENT TEMPERATURE 37.1; PEEP 5 cm H2O; RESPIRATORY RATE 18 b/min; RESPIRATORY RATE (OBSERVED) 31 b/min; TIDAL VOLUME 450 mL; TOTAL HEMOGLOBIN 10.4 G/dl (12.0-16.0)
--- NOTE | 2019-03-29 06:30 | NUR ---
Problems reprioritized. Patient report given, questions answered & plan of care reviewed with Agatha RN and Art RN.
[2019-03-29] MEDS: piperacillin/tazo 4.5gm/100ml 100 ML IV SCH ×3 (08:00→23:50)
[2019-03-29] MEDS: nystatin 15 GM powder TP SCH ×3 (08:00→20:08)
[2019-03-29] MEDS: furosemide 40mg/4ml inj IV SCH ×3 (08:00→23:49)
[2019-03-29] MEDS: heparin, porcine 5000 units/ml vial SQ SCH ×2 (08:37→20:06)
[2019-03-29] MEDS: budesonide 0.5mg/2ml UD nebule IH SCH ×2 (08:39→21:14)
[2019-03-29] MEDS: pantoprazole 40 MG vial IV SCH (08:39)
[2019-03-29] MEDS: lactobacillus rhamnosus 10,000 MMU CELLS/CAPSULE PO SCH ×2 (08:39→20:06)
[2019-03-29] MEDS: levoTHYROXINE sod inj. 100mcg/5 ml vial IV SCH (08:40)
[2019-03-29] MEDS ORDERED: VANCOMYCIN LEVEL IV ONE (09:30)
[2019-03-29] MEDS: [UNRECOGNIZED DRUG - REMARK] IV SCH ×2 (10:00)
--- NOTE | 2019-03-29 10:00 | NUR ---
Attempted to place a PICC line, but was unable due to Patient's vascular status. Dr. Miranda notified of necessity of IJ line to remain in place.
[2019-03-29] MEDS: Dakins solution (1/4 strength) 473ml solution TP SCH ×3 (11:45→21:03)
--- NOTE | 2019-03-29 15:39 | NUR ---
PT Hypertensive. Called and spoke with Dr. Miranda. Fentmercyly gtt to be turned back on
[2019-03-29] MEDS: FENTANYL-0.9 % NACL/PF 100 ML IV PRN (16:42)
--- NOTE | 2019-03-29 17:31 | NUR ---
pt taken to CT for head ct and returned to room
--- NOTE | 2019-03-29 18:30 | NUR ---
Patient in room ICU 2043. I have received report from Agatha STONE and had the opportunity to ask questions and assume patient care.
[2019-03-29] MEDS: fat emulsion IV bag 250 ML IV SCH (20:07)
[2019-03-29] MEDS: Trace element-5 inj. 1 ML in AA 5%/cal/electrolyte-TPN/D15W 2,000 ML IV SCH (20:09)
[2019-03-29] MEDS: insulin glargine (Lantus) pen - multi-dose SQ SCH (21:02)
[2019-03-30] VITALS (24 sets, daily range): BP systolic 99–163; BP diastolic 47–75
[2019-03-30] MEDS: mineral oil/petrolatum ophthal oint EACHEYE SCH ×4 (02:17→20:46)
[2019-03-30] MEDS: hydrALAZINE 20mg/ml inj. IV SCH ×4 (02:17→20:47)
[2019-03-30] MEDS: insulin regular, human vial - multi-dose SQ SCH ×3 (02:21→21:22)
[2019-03-30 02:40] LABS: BASOPHILS # (AUTO) 0.1 X10'3 (0-0.2); BASOPHILS % (AUTO) 0.2 % (0-1); EOSINOPHILS # (AUTO) 0.1 X10'3 (0-0.9); EOSINOPHILS % (AUTO) 0.3 % (0-6); LYMPHOCYTES # (AUTO) 1.7 X10'3 (1.1-4.8); LYMPHOCYTES % (AUTO) 6.3 % (21-51); MEAN CORPUSCULAR HEMOGLOBIN 31.3 PG (27.0-31.0); MEAN CORPUSCULAR HGB CONC 33.3 g/dL (33.0-36.5); MEAN CORPUSCULAR VOLUME 94.1 FL (78-98); MEAN PLATELET VOLUME 11.1 FL (7.4-10.4); MONOCYTES # (AUTO) 0.7 X10'3 (0-0.9); MONOCYTES % (AUTO) 2.5 % (2-12); NEUTROPHILS # (AUTO) 24.1 X10'3 (1.8-7.7); NEUTROPHILS % (AUTO) 90.7 % (42-75); PLATELET COUNT 221 X10'3 (140-440); RED BLOOD COUNT 2.87 X10'6 (4.20-5.60); RED CELL DISTRIBUTION WIDTH 15.5 % (11.5-14.5)
[2019-03-30 02:44] LABS: WHITE BLOOD COUNT 26.6 X10'3 (4.5-11.0)
[2019-03-30 02:49] LABS: PARTIAL THROMBOPLASTIN TIME 23 SECONDS (22-32)
[2019-03-30 02:53] LABS: ALANINE AMINOTRANSFERASE 163 U/L (12-78); ALBUMIN 1.1 G/DL (3.4-5.0); ALBUMIN/GLOBULIN RATIO 0.3 (1.1-1.5); ALKALINE PHOSPHATASE 212 IU/L (46-116); ANION GAP 12 (8-16); ASPARTATE AMINO TRANSFERASE 60 U/L (10-37); BILIRUBIN,TOTAL 1.1 MG/DL (0.1-1.0); BLOOD UREA NITROGEN 48 MG/DL (7-18); BUN/CREATININE RATIO 36.6 (6.6-38.0); CALCIUM 8.2 MG/DL (8.5-10.1); CHLORIDE 106 MMOL/L (99-107); CREATININE 1.31 MG/DL (0.40-0.90); GLUCOSE 276 MG/DL (70-104); MAGNESIUM 1.6 MG/DL (1.5-2.4); PHOSPHORUS 3.4 MG/DL (2.3-4.5); PREALBUMIN 11.7 MG/DL (19-36); SODIUM 141 MMOL/L (135-145); TOTAL CARBON DIOXIDE 23.3 MMOL/L (24-32); TOTAL PROTEIN 4.9 G/DL (6.4-8.2); TRIGLYCERIDES 156 MG/DL (20-135); eGFR 41 ML/MIN
[2019-03-30 02:55] LABS: POTASSIUM 2.6 MMOL/L (3.5-5.1)
[2019-03-30] MEDS: potassium Cl 20mEq/100mL bag 100 ML IV PRN ×5 (03:07→17:29)
[2019-03-30] MEDS: normal saline 1000ml 1,000 ML IV SCH (03:28)
[2019-03-30 03:41] LABS: NUCLEATED RED BLOOD CELLS 1 /100WBC (0-0); PLATELET ESTIMATE NORMAL; TOTAL CELLS COUNTED 100
[2019-03-30 03:42] LABS: BURR CELLS 1+; ELLIPTOCYTES FEW; LARGE PLATELETS MODERATE; POLYCHROMASIA 1+
[2019-03-30] MEDS: levalbuterol 0.63mg/3ml nebule IH SCH ×4 (03:46→20:26)
[2019-03-30] MEDS: FENTANYL-0.9 % NACL/PF 100 ML IV PRN ×2 (04:53→17:01)
[2019-03-30 05:56] LABS: ABG BASE EXCESS -2.7 mmol/L (-2.0-3.0); ABG HCO3 20.4 mmol/L (22.0-26.0); ABG OXYGEN SATURATION 96.8 % (95-98); ABG PCO2 (T) 28.7 mmHg (35.0-45.0); ABG PH (T) 7.469 (7.350-7.450); ABG PO2 (T) 92.2 mmHg (83-108); ALLEN'S TEST Positive; FCOHb 0.5 % (0.5-1.5); FMetHb 0.3 % (0.3-1.12); MINUTE VOLUME 15 L/min; PATIENT TEMPERATURE 36.8; PEEP 5 cm H2O; RESPIRATORY RATE 18 b/min; RESPIRATORY RATE (OBSERVED) 28 b/min; TIDAL VOLUME 450 mL; TOTAL HEMOGLOBIN 8.7 G/dl (12.0-16.0)
[2019-03-30] MEDS: piperacillin/tazo 4.5gm/100ml 100 ML IV SCH (07:36)
[2019-03-30] MEDS: heparin, porcine 5000 units/ml vial SQ SCH ×2 (07:36→20:48)
[2019-03-30] MEDS: pantoprazole 40 MG vial IV SCH (07:37)
[2019-03-30] MEDS: furosemide 40mg/4ml inj IV SCH (07:37)
[2019-03-30] MEDS: levoTHYROXINE sod inj. 100mcg/5 ml vial IV SCH (07:38)
[2019-03-30] MEDS: nystatin 15 GM powder TP SCH ×3 (08:00→20:52)
[2019-03-30] MEDS: lactobacillus rhamnosus 10,000 MMU CELLS/CAPSULE PO SCH (08:00)
[2019-03-30] MEDS: Dakins solution (1/4 strength) 473ml solution TP SCH ×2 (08:00→13:55)
[2019-03-30] MEDS: budesonide 0.5mg/2ml UD nebule IH SCH ×2 (08:29→20:25)
[2019-03-30] MEDS: [UNRECOGNIZED DRUG - REMARK] IV SCH ×2 (10:57)
--- NOTE | 2019-03-30 11:15 | NUR ---
I have reviewed and agree with all medications administered and interventions performed by [facility] Student Kartik Espinoza Addendum: 03/30/19 at 1116 by Whitney Husain RT Amended: Links added.
--- NOTE | 2019-03-30 15:33 | NUR ---
Tube feeding consult. Patient is still intubated and sedated; s/p open exploratory lap with bowel resection, removal of mass, placement of uretal stents, and colostomy placement; further had colostomy revised; has active bowel sounds, had 500 ml stool output yesterday via colostomy per bedside RN. okay with starting tube feeding today. Recommend that TPN weaned as tube feedings advanced to goal rate. Will need colostomy ed once stable prior to d/c. Will continue to monitor. Recommend: 1. Continuous tube feeding via OG tube using Vital High Protein at 85 ml/hr will provide total volume 2040 ml, 2040 cals, 1714 ml water, 179 g protein. 2. water flush 200 ml q 4 hours 3. Prealbumin q wednesday and 4. daily weights 5. Recommend 2:1 TPN using Clinimix E 09/21 to run continuously at 95 ml/hr will provide total volume of 2280 ml, 1619 cals, 114 g protein, 2.44 mg/kg/min CHO loading. Recommend to wean as tube feeding advances. 6. Separate 20% intralipid at 10 ml/hr providing total of 120 ml per day and 24 grams of fat. Addendum: 03/30/19 at [address] Amended: Links added.
[2019-03-30] MEDS ORDERED: acetaminophen 325mg tablet NG PRN (16:00)
[2019-03-30] MEDS ORDERED: dextrose ORAL solution 15 GM/59 ML bottle NG PRN ×2 (16:01)
[2019-03-30] MEDS ORDERED: mag hydrox/Alum hydrox/simeth 30ml oral suspension NG PRN (16:02)
[2019-03-30] MEDS ORDERED: magnesium hydroxide 30ml (MOM) UD suspension NG PRN (16:03)
[2019-03-30] MEDS ORDERED: temazepam 15mg capsule NG PRN (16:04)
[2019-03-30] MEDS: cefepime 1GM in D5W 50mL 50 ML IV SCH ×2 (16:16→23:56)
[2019-03-30] MEDS: Trace element-5 inj. 1 ML in AA 5%/cal/electrolyte-TPN/D15W 2,000 ML IV SCH (16:17)
--- NOTE | 2019-03-30 18:30 | NUR ---
Patient in room ICU 2043. I have received report from Lane/Agatha STONE and had the opportunity to ask questions and assume patient care along with Student nurse Sarika.
[2019-03-30] MEDS: lactobacillus rhamnosus 10,000 MMU CELLS/CAPSULE NG SCH (20:48)
[2019-03-30] MEDS: POTASSIUM BICARB 20meq eff tab 20 MEQ TABLET.EFF NG SCH (20:49)
[2019-03-30] MEDS: POTASSIUM BICARBONATE/CIT AC 10 MEQ TABLET.EFF NG SCH (20:50)
[2019-03-30] MEDS: fat emulsion IV bag 250 ML IV SCH (21:07)
[2019-03-30] MEDS: insulin glargine (Lantus) pen - multi-dose SQ SCH (21:20)
[2019-03-30] MEDS: diatr meglu/diatrizoate 30ml oral sol.-(3 dose) bottle NG SCH (21:25)
[2019-03-30] MEDS: NORepinephrine 8mg/ 250ml NS 250 ML IV SCH (21:45)
[2019-03-31] VITALS (24 sets, daily range): BP systolic 120–167; BP diastolic 41–71
[2019-03-31] MEDS: Dakins solution (1/4 strength) 473ml solution TP SCH ×4 (00:34→21:05)
[2019-03-31] MEDS: levalbuterol 0.63mg/3ml nebule IH SCH ×4 (02:14→20:16)
[2019-03-31] MEDS: insulin regular, human vial - multi-dose SQ SCH ×3 (02:32→21:27)
[2019-03-31] MEDS: mineral oil/petrolatum ophthal oint EACHEYE SCH ×4 (02:36→21:03)
[2019-03-31] MEDS: hydrALAZINE 20mg/ml inj. IV SCH ×4 (02:36→20:58)
[2019-03-31 03:05] LABS: BASOPHILS # (AUTO) 0.1 X10'3 (0-0.2); BASOPHILS % (AUTO) 0.3 % (0-1); EOSINOPHILS # (AUTO) 0.1 X10'3 (0-0.9); EOSINOPHILS % (AUTO) 0.4 % (0-6); HEMATOCRIT 25.8 % (35.0-45.0); HEMOGLOBIN 8.7 g/dl (12.0-16.0); LYMPHOCYTES # (AUTO) 1.9 X10'3 (1.1-4.8); LYMPHOCYTES % (AUTO) 6.8 % (21-51); MEAN CORPUSCULAR HEMOGLOBIN 31.2 PG (27.0-31.0); MEAN CORPUSCULAR HGB CONC 33.6 g/dL (33.0-36.5); MEAN CORPUSCULAR VOLUME 92.9 FL (78-98); MEAN PLATELET VOLUME 11.2 FL (7.4-10.4); MONOCYTES # (AUTO) 0.5 X10'3 (0-0.9); MONOCYTES % (AUTO) 1.9 % (2-12); NEUTROPHILS # (AUTO) 25.7 X10'3 (1.8-7.7); NEUTROPHILS % (AUTO) 90.6 % (42-75); PLATELET COUNT 275 X10'3 (140-440); RED BLOOD COUNT 2.78 X10'6 (4.20-5.60); RED CELL DISTRIBUTION WIDTH 15.8 % (11.5-14.5)
[2019-03-31 03:10] LABS: WHITE BLOOD COUNT 28.4 X10'3 (4.5-11.0)
[2019-03-31 03:13] LABS: PARTIAL THROMBOPLASTIN TIME 23 SECONDS (22-32)
[2019-03-31 03:21] LABS: ALANINE AMINOTRANSFERASE 116 U/L (12-78); ALBUMIN 1.1 G/DL (3.4-5.0); ALBUMIN/GLOBULIN RATIO 0.3 (1.1-1.5); ALKALINE PHOSPHATASE 233 IU/L (46-116); ANION GAP 7 (8-16); ASPARTATE AMINO TRANSFERASE 37 U/L (10-37); BILIRUBIN,TOTAL 1.2 MG/DL (0.1-1.0); BLOOD UREA NITROGEN 50 MG/DL (7-18); BUN/CREATININE RATIO 38.8 (6.6-38.0); CALCIUM 8.3 MG/DL (8.5-10.1); CHLORIDE 107 MMOL/L (99-107); CREATININE 1.29 MG/DL (0.40-0.90); GLUCOSE 187 MG/DL (70-104); MAGNESIUM 1.7 MG/DL (1.5-2.4); PHOSPHORUS 3.7 MG/DL (2.3-4.5); POTASSIUM 3.7 MMOL/L (3.5-5.1); SODIUM 139 MMOL/L (135-145); TOTAL CARBON DIOXIDE 24.8 MMOL/L (24-32); TOTAL PROTEIN 5.1 G/DL (6.4-8.2); eGFR 41 ML/MIN
[2019-03-31 03:46] LABS: ABG BASE EXCESS -2.7 mmol/L (-2.0-3.0); ABG HCO3 19.9 mmol/L (22.0-26.0); ABG OXYGEN SATURATION 97.8 % (95-98); ABG PCO2 (T) 26.5 mmHg (35.0-45.0); ABG PH (T) 7.492 (7.350-7.450); ABG PO2 (T) 101.6 mmHg (83-108); ALLEN'S TEST Positive; FCOHb 0.4 % (0.5-1.5); FMetHb 0.3 % (0.3-1.12); FO2Hb 97.1 % (94-100); MINUTE VOLUME 15 L/min; PATIENT TEMPERATURE 36.5; PEEP 5 cm H2O; RESPIRATORY RATE 0 b/min; RESPIRATORY RATE (OBSERVED) 32 b/min; TIDAL VOLUME 479 mL; TOTAL HEMOGLOBIN 9.7 G/dl (12.0-16.0)
[2019-03-31 03:49] LABS: TOTAL CELLS COUNTED 100
[2019-03-31 03:50] LABS: ELLIPTOCYTES FEW; PLATELET ESTIMATE NORMAL; POLYCHROMASIA FEW
[2019-03-31] MEDS: FENTANYL-0.9 % NACL/PF 100 ML IV PRN ×2 (06:17→19:00)
--- NOTE | 2019-03-31 06:34 | NUR ---
Problems reprioritized. Patient report given, questions answered & plan of care reviewed with Sugar STONE. Student documentation: I have reviewed and agree with all interventions, assessments performed and documented by Sarika APARICIO. Student Medication Administration: For this medication-pass time frame, all medication were reviewed, dispensed, administered and documented per hospital policy by Sarika APARICIO.
[2019-03-31] MEDS: diatr meglu/diatrizoate 30ml oral sol.-(3 dose) bottle NG SCH ×2 (08:44→21:04)
[2019-03-31] MEDS: heparin, porcine 5000 units/ml vial SQ SCH ×2 (08:45→21:00)
[2019-03-31] MEDS: pantoprazole 40 MG vial IV SCH (08:46)
[2019-03-31] MEDS: nystatin 15 GM powder TP SCH ×3 (08:47→21:05)
[2019-03-31] MEDS: lactobacillus rhamnosus 10,000 MMU CELLS/CAPSULE NG SCH ×2 (08:48→20:59)
[2019-03-31] MEDS: POTASSIUM BICARB 20meq eff tab 20 MEQ TABLET.EFF NG SCH ×2 (08:48→20:59)
[2019-03-31] MEDS: levoTHYROXINE sod inj. 100mcg/5 ml vial IV SCH (08:51)
[2019-03-31] MEDS: cefepime 1GM in D5W 50mL 50 ML IV SCH (08:51)
[2019-03-31] MEDS: POTASSIUM BICARBONATE/CIT AC 10 MEQ TABLET.EFF NG SCH ×2 (09:02→20:00)
[2019-03-31] MEDS: [UNRECOGNIZED DRUG - REMARK] IV SCH ×2 (09:12)
[2019-03-31] MEDS: budesonide 0.5mg/2ml UD nebule IH SCH ×2 (09:20→20:16)
--- NOTE | 2019-03-31 14:54 | NUR ---
Reassessment: Tube feedings started today after CT. Patient is still intubated and sedated; s/p open exploratory lap with bowel resection, removal of mass, placement of uretal stents, and colostomy placement; further had colostomy revised; has active bowel sounds, had 670 ml stool output 03/30 via colostomy per bedside RN. okay with starting tube feeding today. Recommend that TPN weaned as tube feedings advanced to goal rate. Will need colostomy ed once stable prior to d/c. Will continue to monitor. Recommend: 1. Continuous tube feeding via OG tube using Vital High Protein at 85 ml/hr will provide total volume 2040 ml, 2040 cals, 1714 ml water, 179 g protein. 2. water flush 200 ml q 4 hours 3. Prealbumin q wednesday and 4. daily weights 5. Recommend 2:1 TPN using Clinimix E 09/21 to run continuously at 95 ml/hr will provide total volume of 2280 ml, 1619 cals, 114 g protein, 2.44 mg/kg/min CHO loading. Recommend to wean as tube feeding advances. 6. Separate 20% intralipid at 10 ml/hr providing total of 120 ml per day and 24 grams of fat. Addendum: 03/31/19 at [address] Amended: Links added.
[2019-03-31] MEDS: Trace element-5 inj. 1 ML in AA 5%/cal/electrolyte-TPN/D15W 2,000 ML IV SCH (18:00)
[2019-03-31] MEDS ORDERED: CEFEPIME 2 GM in NS 100ml IV.SOLN 100 ML IV SCH (20:00)
[2019-03-31] MEDS ORDERED: cefepime 2gm inj IV SCH (20:00)
[2019-03-31] MEDS: fat emulsion IV bag 250 ML IV SCH (20:59)
[2019-03-31] MEDS: insulin glargine (Lantus) pen - multi-dose SQ SCH (21:29)
[2019-04-01] VITALS (25 sets, daily range): BP systolic 104–194; BP diastolic 40–90
[2019-04-01] MEDS: piperacillin/tazo 3.375gm/50ml 50 ML IV SCH ×3 (00:41→16:12)
[2019-04-01] MEDS: hydrALAZINE 20mg/ml inj. IV SCH ×4 (02:19→20:48)
[2019-04-01] MEDS: mineral oil/petrolatum ophthal oint EACHEYE SCH ×4 (02:20→20:48)
[2019-04-01] MEDS: insulin regular, human vial - multi-dose SQ SCH ×4 (02:27→20:52)
[2019-04-01] MEDS: levalbuterol 0.63mg/3ml nebule IH SCH ×4 (02:38→20:14)
[2019-04-01 03:02] LABS: BASOPHILS # (AUTO) 0.1 X10'3 (0-0.2); BASOPHILS % (AUTO) 0.4 % (0-1); EOSINOPHILS # (AUTO) 0.1 X10'3 (0-0.9); EOSINOPHILS % (AUTO) 0.7 % (0-6); HEMOGLOBIN 8.7 g/dl (12.0-16.0); LYMPHOCYTES # (AUTO) 1.4 X10'3 (1.1-4.8); LYMPHOCYTES % (AUTO) 6.8 % (21-51); MEAN CORPUSCULAR HEMOGLOBIN 31.3 PG (27.0-31.0); MEAN CORPUSCULAR HGB CONC 33.4 g/dL (33.0-36.5); MEAN CORPUSCULAR VOLUME 93.5 FL (78-98); MEAN PLATELET VOLUME 10.6 FL (7.4-10.4); MONOCYTES # (AUTO) 0.5 X10'3 (0-0.9); MONOCYTES % (AUTO) 2.4 % (2-12); NEUTROPHILS % (AUTO) 89.7 % (42-75); PLATELET COUNT 321 X10'3 (140-440); RED BLOOD COUNT 2.78 X10'6 (4.20-5.60); RED CELL DISTRIBUTION WIDTH 16.3 % (11.5-14.5); WHITE BLOOD COUNT 21.2 X10'3 (4.5-11.0)
[2019-04-01 03:08] LABS: PARTIAL THROMBOPLASTIN TIME 23 SECONDS (22-32)
[2019-04-01 03:11] LABS: ALANINE AMINOTRANSFERASE 90 U/L (12-78); ALBUMIN 1.1 G/DL (3.4-5.0); ALBUMIN/GLOBULIN RATIO 0.3 (1.1-1.5); ALKALINE PHOSPHATASE 258 IU/L (46-116); ANION GAP 10 (8-16); ASPARTATE AMINO TRANSFERASE 28 U/L (10-37); BILIRUBIN,TOTAL 0.8 MG/DL (0.1-1.0); BLOOD UREA NITROGEN 50 MG/DL (7-18); CALCIUM 8.9 MG/DL (8.5-10.1); CHLORIDE 107 MMOL/L (99-107); CREATININE 1.11 MG/DL (0.40-0.90); GLUCOSE 108 MG/DL (70-104); MAGNESIUM 1.9 MG/DL (1.5-2.4); PHOSPHORUS 3.3 MG/DL (2.3-4.5); POTASSIUM 3.9 MMOL/L (3.5-5.1); SODIUM 142 MMOL/L (135-145); TOTAL PROTEIN 5.4 G/DL (6.4-8.2); eGFR 49 ML/MIN
[2019-04-01] MEDS: normal saline 1000ml 1,000 ML IV SCH (03:28)
[2019-04-01 03:46] LABS: ABG BASE EXCESS -3.9 mmol/L (-2.0-3.0); ABG OXYGEN SATURATION 97.2 % (95-98); ABG PCO2 (T) 26.9 mmHg (35.0-45.0); ABG PH (T) 7.465 (7.350-7.450); ABG PO2 (T) 89.5 mmHg (83-108); ALLEN'S TEST Positive; FCOHb 0.3 % (0.5-1.5); FMetHb 0.3 % (0.3-1.12); FO2Hb 96.6 % (94-100); MINUTE VOLUME 12 L/min; PATIENT TEMPERATURE 36.7; PEEP 5 cm H2O; RESPIRATORY RATE 0 b/min; RESPIRATORY RATE (OBSERVED) 26 b/min; TIDAL VOLUME 519 mL; TOTAL HEMOGLOBIN 9.9 G/dl (12.0-16.0)
[2019-04-01 04:52] LABS: LARGE PLATELETS MODERATE; PLATELET ESTIMATE NORMAL; TOTAL CELLS COUNTED 100
[2019-04-01 04:53] LABS: POLYCHROMASIA 1+
[2019-04-01 04:54] LABS: SPHEROCYTES FEW; TOXIC GRANULATION 2+
[2019-04-01 04:55] LABS: ANISOCYTOSIS 1+
[2019-04-01] MEDS: FENTANYL-0.9 % NACL/PF 100 ML IV PRN ×2 (04:58→16:03)
[2019-04-01] MEDS: budesonide 0.5mg/2ml UD nebule IH SCH ×2 (07:34→20:14)
[2019-04-01] MEDS: heparin, porcine 5000 units/ml vial SQ SCH ×2 (08:00→20:48)
[2019-04-01] MEDS: POTASSIUM BICARBONATE/CIT AC 10 MEQ TABLET.EFF NG SCH ×2 (08:24→20:49)
[2019-04-01] MEDS: POTASSIUM BICARB 20meq eff tab 20 MEQ TABLET.EFF NG SCH ×2 (08:24→20:49)
[2019-04-01] MEDS: lactobacillus rhamnosus 10,000 MMU CELLS/CAPSULE NG SCH ×2 (08:25→20:48)
[2019-04-01] MEDS: nystatin 15 GM powder TP SCH ×3 (08:25→20:55)
[2019-04-01] MEDS: pantoprazole 40 MG vial IV SCH (08:25)
[2019-04-01] MEDS: levoTHYROXINE sod inj. 100mcg/5 ml vial IV SCH (08:25)
[2019-04-01] MEDS: Dakins solution (1/4 strength) 473ml solution TP SCH ×3 (08:25→20:54)
[2019-04-01] MEDS: [UNRECOGNIZED DRUG - REMARK] IV SCH ×2 (09:14)
[2019-04-01] MEDS ORDERED: LIDOcaine 1%/PF 5ML 10 MG/ML VIAL ONE (09:45)
[2019-04-01] MEDS: midazolam 100mg in NS 100ml 100 ML IV PRN (16:59)
[2019-04-01] MEDS: fat emulsion IV bag 250 ML IV SCH (20:00)
[2019-04-01] MEDS: insulin glargine (Lantus) pen - multi-dose SQ SCH (20:54)
[2019-04-01] MEDS: NORepinephrine 8mg/ 250ml NS 250 ML IV SCH (21:17)
[2019-04-02] VITALS (24 sets, daily range): BP systolic 99–163; BP diastolic 40–65
[2019-04-02] MEDS: piperacillin/tazo 3.375gm/50ml 50 ML IV SCH ×3 (00:06→15:49)
[2019-04-02] MEDS: hydrALAZINE 20mg/ml inj. IV SCH ×5 (02:28→20:26)
[2019-04-02] MEDS: mineral oil/petrolatum ophthal oint EACHEYE SCH ×4 (02:28→20:24)
[2019-04-02] MEDS: insulin regular, human vial - multi-dose SQ SCH ×3 (02:31→20:47)
[2019-04-02] MEDS: levalbuterol 0.63mg/3ml nebule IH SCH ×4 (02:32→20:25)
[2019-04-02] MEDS: FENTANYL-0.9 % NACL/PF 100 ML IV PRN ×3 (02:32→22:00)
[2019-04-02 02:40] LABS: BASOPHILS % (AUTO) 0.3 % (0-1); EOSINOPHILS # (AUTO) 0.1 X10'3 (0-0.9); EOSINOPHILS % (AUTO) 0.6 % (0-6); HEMATOCRIT 22.9 % (35.0-45.0); HEMOGLOBIN 7.7 g/dl (12.0-16.0); LYMPHOCYTES # (AUTO) 1.1 X10'3 (1.1-4.8); LYMPHOCYTES % (AUTO) 6.7 % (21-51); MEAN CORPUSCULAR HEMOGLOBIN 31.7 PG (27.0-31.0); MEAN CORPUSCULAR HGB CONC 33.7 g/dL (33.0-36.5); MEAN PLATELET VOLUME 10.4 FL (7.4-10.4); MONOCYTES # (AUTO) 0.4 X10'3 (0-0.9); MONOCYTES % (AUTO) 2.4 % (2-12); NEUTROPHILS # (AUTO) 14.6 X10'3 (1.8-7.7); PLATELET COUNT 322 X10'3 (140-440); RED BLOOD COUNT 2.44 X10'6 (4.20-5.60); RED CELL DISTRIBUTION WIDTH 16.3 % (11.5-14.5); WHITE BLOOD COUNT 16.3 X10'3 (4.5-11.0)
[2019-04-02 02:52] LABS: PARTIAL THROMBOPLASTIN TIME 24 SECONDS (22-32)
[2019-04-02 02:53] LABS: ALANINE AMINOTRANSFERASE 57 U/L (12-78); ALBUMIN 1.1 G/DL (3.4-5.0); ALBUMIN/GLOBULIN RATIO 0.3 (1.1-1.5); ALKALINE PHOSPHATASE 235 IU/L (46-116); ANION GAP 6 (8-16); ASPARTATE AMINO TRANSFERASE 18 U/L (10-37); BILIRUBIN,TOTAL 0.5 MG/DL (0.1-1.0); BLOOD UREA NITROGEN 48 MG/DL (7-18); BUN/CREATININE RATIO 44.4 (6.6-38.0); CALCIUM 8.5 MG/DL (8.5-10.1); CHLORIDE 108 MMOL/L (99-107); CREATININE 1.08 MG/DL (0.40-0.90); GLUCOSE 108 MG/DL (70-104); PHOSPHORUS 3.4 MG/DL (2.3-4.5); POTASSIUM 4.5 MMOL/L (3.5-5.1); SODIUM 139 MMOL/L (135-145); TOTAL CARBON DIOXIDE 24.8 MMOL/L (24-32); TOTAL PROTEIN 5.1 G/DL (6.4-8.2); eGFR 51 ML/MIN
[2019-04-02 03:36] LABS: ABG BASE EXCESS -3.1 mmol/L (-2.0-3.0); ABG HCO3 21.4 mmol/L (22.0-26.0); ABG OXYGEN SATURATION 97.6 % (95-98); ABG PCO2 (T) 34.9 mmHg (35.0-45.0); ABG PH (T) 7.402 (7.350-7.450); ABG PO2 (T) 105.3 mmHg (83-108); ALLEN'S TEST Positive; FCOHb 0.7 % (0.5-1.5); FMetHb 0.3 % (0.3-1.12); FO2Hb 96.6 % (94-100); MINUTE VOLUME 8 L/min; PATIENT TEMPERATURE 36.3; PEEP 5 cm H2O; RESPIRATORY RATE 0 b/min; RESPIRATORY RATE (OBSERVED) 18 b/min; TIDAL VOLUME 459 mL; TOTAL HEMOGLOBIN 8.5 G/dl (12.0-16.0)
--- NOTE | 2019-04-02 03:39 | NUR ---
Problems reprioritized. Patient report given, questions answered & plan of care reviewed with Stephania STONE.
--- NOTE | 2019-04-02 03:39 | NUR ---
Patient in room ICU 2043. I have received report from Aminata STONE and had the opportunity to ask questions and assume patient care.
--- NOTE | 2019-04-02 06:21 | NUR ---
Problems reprioritized. Patient report given, questions answered & plan of care reviewed with Marlyn STONE.
--- NOTE | 2019-04-02 06:33 | NUR ---
Patient in room ICU 2043. I have received report from Stephania STONE and had the opportunity to ask questions and assume patient care. Addendum: 04/02/19 at 0633 by Marlyn Andujar RN Amended: Links added.
[2019-04-02] MEDS: budesonide 0.5mg/2ml UD nebule IH SCH ×2 (06:55→20:24)
[2019-04-02] MEDS: POTASSIUM BICARB 20meq eff tab 20 MEQ TABLET.EFF NG SCH ×2 (07:24→20:23)
[2019-04-02] MEDS: pantoprazole 40 MG vial IV SCH (07:24)
[2019-04-02] MEDS: heparin, porcine 5000 units/ml vial SQ SCH ×2 (07:24→20:24)
[2019-04-02] MEDS: lactobacillus rhamnosus 10,000 MMU CELLS/CAPSULE NG SCH ×2 (07:24→20:22)
[2019-04-02] MEDS: nystatin 15 GM powder TP SCH ×3 (07:26→20:25)
[2019-04-02] MEDS: POTASSIUM BICARBONATE/CIT AC 10 MEQ TABLET.EFF NG SCH ×2 (07:26→20:40)
[2019-04-02] MEDS: Dakins solution (1/4 strength) 473ml solution TP SCH ×3 (07:27→20:25)
[2019-04-02] MEDS: levoTHYROXINE sod inj. 100mcg/5 ml vial IV SCH (07:37)
--- NOTE | 2019-04-02 08:35 | NUR ---
0800 BG 67. Glucose shot administered per order. BG 15" after administration was 74. Tube feeding infusing at goal rate.
[2019-04-02] MEDS: [UNRECOGNIZED DRUG - REMARK] IV SCH ×2 (09:32)
--- NOTE | 2019-04-02 09:58 | NUR ---
Pt. awake and able to follow commands. Pt. nodded "yes" when asked if she was in pain. Fentanyl dose increased to 150 for now. Will reassess PRN.
--- NOTE | 2019-04-02 15:04 | NUR ---
Pillow cases and interdry replaced frequently due to pt. being very moist. Large water blister noted to right lower abd/ side area.
--- NOTE | 2019-04-02 17:23 | NUR ---
Open areas X2 noted to left wrist under restraint. Photos obtained. Foam dressings applied under restraint. Charge Nurse aware.
--- NOTE | 2019-04-02 18:30 | NUR ---
Patient in room ICU 2043. I have received report from BERTHA Cline and had the opportunity to ask questions and assume patient care.
[2019-04-02] MEDS: insulin glargine (Lantus) pen - multi-dose SQ SCH (20:49)
[2019-04-03] VITALS (24 sets, daily range): BP systolic 109–163; BP diastolic 34–71
--- NOTE | 2019-04-03 00:05 | NUR ---
Changed abdominal surgical wound dressings per MD order. One roll of kerlix with dakins solution used to pack wound, two packs of dry sterile guaze placed on top, 3 abd pads used on top of that.
[2019-04-03] MEDS: piperacillin/tazo 3.375gm/50ml 50 ML IV SCH ×3 (00:20→15:37)
[2019-04-03] MEDS: mineral oil/petrolatum ophthal oint EACHEYE SCH ×4 (02:16→20:23)
[2019-04-03] MEDS: hydrALAZINE 20mg/ml inj. IV SCH ×4 (02:16→20:23)
[2019-04-03] MEDS: insulin regular, human vial - multi-dose SQ SCH ×4 (02:20→20:38)
[2019-04-03] MEDS: levalbuterol 0.63mg/3ml nebule IH SCH ×4 (02:35→20:23)
[2019-04-03 02:43] LABS: BASOPHILS # (AUTO) 0.1 X10'3 (0-0.2); BASOPHILS % (AUTO) 0.7 % (0-1); EOSINOPHILS # (AUTO) 0.1 X10'3 (0-0.9); EOSINOPHILS % (AUTO) 0.8 % (0-6); HEMATOCRIT 22.7 % (35.0-45.0); HEMOGLOBIN 7.6 g/dl (12.0-16.0); LYMPHOCYTES # (AUTO) 0.8 X10'3 (1.1-4.8); LYMPHOCYTES % (AUTO) 5.8 % (21-51); MEAN CORPUSCULAR HEMOGLOBIN 31.9 PG (27.0-31.0); MEAN CORPUSCULAR HGB CONC 33.6 g/dL (33.0-36.5); MONOCYTES # (AUTO) 0.3 X10'3 (0-0.9); MONOCYTES % (AUTO) 2.5 % (2-12); NEUTROPHILS % (AUTO) 90.2 % (42-75); PLATELET COUNT 354 X10'3 (140-440); RED BLOOD COUNT 2.39 X10'6 (4.20-5.60); RED CELL DISTRIBUTION WIDTH 16.8 % (11.5-14.5); WHITE BLOOD COUNT 13.3 X10'3 (4.5-11.0)
[2019-04-03 02:51] LABS: PARTIAL THROMBOPLASTIN TIME 23 SECONDS (22-32)
[2019-04-03 02:57] LABS: ALANINE AMINOTRANSFERASE 47 U/L (12-78); ALBUMIN 1.1 G/DL (3.4-5.0); ALBUMIN/GLOBULIN RATIO 0.3 (1.1-1.5); ALKALINE PHOSPHATASE 256 IU/L (46-116); ANION GAP 4 (8-16); ASPARTATE AMINO TRANSFERASE 18 U/L (10-37); BILIRUBIN,TOTAL 0.4 MG/DL (0.1-1.0); BLOOD UREA NITROGEN 45 MG/DL (7-18); BUN/CREATININE RATIO 43.7 (6.6-38.0); CALCIUM 8.5 MG/DL (8.5-10.1); CHLORIDE 108 MMOL/L (99-107); CREATININE 1.03 MG/DL (0.40-0.90); GLUCOSE 155 MG/DL (70-104); PHOSPHORUS 3.4 MG/DL (2.3-4.5); POTASSIUM 4.5 MMOL/L (3.5-5.1); PREALBUMIN 15.6 MG/DL (19-36); SODIUM 137 MMOL/L (135-145); TOTAL CARBON DIOXIDE 25.1 MMOL/L (24-32); TOTAL PROTEIN 5.3 G/DL (6.4-8.2); TRIGLYCERIDES 136 MG/DL (20-135); eGFR 54 ML/MIN
[2019-04-03] MEDS: normal saline 1000ml 1,000 ML IV SCH (03:28)
[2019-04-03 03:55] LABS: ABG BASE EXCESS -4.3 mmol/L (-2.0-3.0); ABG HCO3 19.8 mmol/L (22.0-26.0); ABG OXYGEN SATURATION 98.4 % (95-98); ABG PCO2 (T) 31.7 mmHg (35.0-45.0); ABG PH (T) 7.412 (7.350-7.450); ABG PO2 (T) 126.4 mmHg (83-108); ALLEN'S TEST Positive; FCOHb 0.3 % (0.5-1.5); FMetHb 0.3 % (0.3-1.12); FO2Hb 97.8 % (94-100); MINUTE VOLUME 8 L/min; PATIENT TEMPERATURE 36.4; PEEP 5 cm H2O; RESPIRATORY RATE 0 b/min; RESPIRATORY RATE (OBSERVED) 19 b/min; TIDAL VOLUME 430 mL; TOTAL HEMOGLOBIN 8.8 G/dl (12.0-16.0)
[2019-04-03 03:58] LABS: TOTAL CELLS COUNTED 100
[2019-04-03 03:59] LABS: ANISOCYTOSIS 1+; PLATELET ESTIMATE NORMAL
[2019-04-03 04:00] LABS: LARGE PLATELETS FEW; POLYCHROMASIA 1+; TOXIC GRANULATION 2+
--- NOTE | 2019-04-03 06:28 | NUR ---
Problems reprioritized. Patient report given, questions answered & plan of care reviewed with BERTHA Rosenberg.
--- NOTE | 2019-04-03 06:37 | NUR ---
Patient in room ICU 2043. I have received report from Dominga and had the opportunity to ask questions and assume patient care.
[2019-04-03] MEDS: lactobacillus rhamnosus 10,000 MMU CELLS/CAPSULE NG SCH ×2 (07:58→20:21)
[2019-04-03] MEDS: POTASSIUM BICARB 20meq eff tab 20 MEQ TABLET.EFF NG SCH (08:00)
[2019-04-03] MEDS: POTASSIUM BICARBONATE/CIT AC 10 MEQ TABLET.EFF NG SCH (08:00)
[2019-04-03] MEDS: pantoprazole 40 MG vial IV SCH (08:01)
[2019-04-03] MEDS: heparin, porcine 5000 units/ml vial SQ SCH ×2 (08:01→20:22)
[2019-04-03] MEDS: levoTHYROXINE sod inj. 100mcg/5 ml vial IV SCH (08:02)
[2019-04-03] MEDS: nystatin 15 GM powder TP SCH ×3 (08:03→20:34)
[2019-04-03] MEDS: Dakins solution (1/4 strength) 473ml solution TP SCH ×3 (08:03→20:35)
[2019-04-03] MEDS: budesonide 0.5mg/2ml UD nebule IH SCH ×2 (08:17→20:23)
[2019-04-03] MEDS: FENTANYL-0.9 % NACL/PF 100 ML IV PRN ×2 (08:25→18:05)
[2019-04-03] MEDS ORDERED: acetaminophen 325mg tablet OGT PRN (09:45)
[2019-04-03] MEDS ORDERED: mag hydrox/Alum hydrox/simeth 30ml oral suspension OGT PRN (09:46)
[2019-04-03] MEDS ORDERED: temazepam 15mg capsule OGT PRN (09:47)
[2019-04-03] MEDS ORDERED: magnesium hydroxide 30ml (MOM) UD suspension OGT PRN (09:47)
[2019-04-03] MEDS: [UNRECOGNIZED DRUG - REMARK] IV SCH ×2 (09:52)
[2019-04-03] MEDS ORDERED: dextrose ORAL solution 15 GM/59 ML bottle OGT PRN ×2 (10:01)
--- NOTE | 2019-04-03 11:13 | NUR ---
Reassessment: Pt remains intubated and tolerating TF at goal with GRV WNL with range 10-90 mL. Pt no longer receiving TPN however with vitamin bag. LBM 04/02 with 1250 mL stool output per I&O. Wt fluctuates, likely r/t fluid with +6.7 L over the last four days. Pt to start receiving Lasix per MD at critical care rounds. Will continue to follow closely. Recommend: 1. Continuous tube feeding via OG tube using Vital High Protein at 85 ml/hr will provide total volume 2040 ml, 2040 cals, 1714 ml water, 179 g protein. 2. water flush 200 ml q 4 hours 3. Prealbumin q Wednesday and 4. daily weights 5. Colostomy education once extubated and stable Addendum: 04/03/19 at [address] Amended: Links added.
--- NOTE | 2019-04-03 11:21 | NUR ---
0900- Black suture noted around forrest catheter outside of labia. Redness to bilateral lower trunk that extends to bilateral outer thighs, margins marked on left side. skin grossly edematous and weeping. Patient awakens easily able to communicate when pain is elevated, able to squeeze hands weakly. 1000- Rounds completed, alerted MD to bilateral reddness to lower trunk that extends down outer thighs. Lasix 40mg BID ordered for edema. Weaing parameters discussed MD would like RSBI to be less than 50, hopes are for extubation this week. Decrease nightly lantus to 25 units due to the episode of hypoglycemia.
[2019-04-03] MEDS: furosemide 40mg/4ml inj IV SCH ×2 (11:31→20:23)
--- NOTE | 2019-04-03 18:06 | NUR ---
1744- patient grimacing, nods head yes to pain, bolused 3 ml of fentanyl as she has tolerated in past, patient somnolent, started vent on a rate, alerted charge and RT. Persistent cuff leak louder, charge went to notify MD, RT at bedside.
--- NOTE | 2019-04-03 18:30 | NUR ---
Patient in room ICU 2043. I have received report from BERTHA Rosenberg and had the opportunity to ask questions and assume patient care.
[2019-04-03] MEDS: POTASSIUM BICARB 20meq eff tab 20 MEQ TABLET.EFF OGT SCH (20:22)
[2019-04-03] MEDS: POTASSIUM BICARBONATE/CIT AC 10 MEQ TABLET.EFF OGT SCH (20:22)
[2019-04-03] MEDS: insulin glargine (Lantus) pen - multi-dose SQ SCH (20:39)
[2019-04-04] VITALS (24 sets, daily range): BP systolic 111–207; BP diastolic 51–83
--- NOTE | 2019-04-04 | NUR ---
Abdominal surgical wound dressing changed at this time per MD order. Fentanyl gtt used as pain management. Patient tolerated well.
[2019-04-04] MEDS: midazolam 100mg in NS 100ml 100 ML IV PRN (00:04)
[2019-04-04] MEDS: piperacillin/tazo 3.375gm/50ml 50 ML IV SCH ×2 (00:04→08:47)
[2019-04-04] MEDS: levalbuterol 0.63mg/3ml nebule IH SCH ×4 (02:13→20:33)
[2019-04-04] MEDS: mineral oil/petrolatum ophthal oint EACHEYE SCH ×4 (02:19→19:29)
[2019-04-04] MEDS: hydrALAZINE 20mg/ml inj. IV SCH ×3 (02:19→14:01)
[2019-04-04] MEDS: insulin regular, human vial - multi-dose SQ SCH ×4 (02:24→20:04)
[2019-04-04 02:53] LABS: BASOPHILS % (AUTO) 0.4 % (0-1); EOSINOPHILS # (AUTO) 0.1 X10'3 (0-0.9); HEMATOCRIT 25.9 % (35.0-45.0); HEMOGLOBIN 8.6 g/dl (12.0-16.0); LYMPHOCYTES # (AUTO) 0.7 X10'3 (1.1-4.8); LYMPHOCYTES % (AUTO) 5.3 % (21-51); MEAN CORPUSCULAR HEMOGLOBIN 31.5 PG (27.0-31.0); MEAN CORPUSCULAR VOLUME 95.6 FL (78-98); MEAN PLATELET VOLUME 9.8 FL (7.4-10.4); MONOCYTES # (AUTO) 0.4 X10'3 (0-0.9); MONOCYTES % (AUTO) 3.4 % (2-12); NEUTROPHILS # (AUTO) 11.1 X10'3 (1.8-7.7); NEUTROPHILS % (AUTO) 89.9 % (42-75); PLATELET COUNT 453 X10'3 (140-440); RED BLOOD COUNT 2.72 X10'6 (4.20-5.60); RED CELL DISTRIBUTION WIDTH 16.8 % (11.5-14.5); WHITE BLOOD COUNT 12.4 X10'3 (4.5-11.0)
[2019-04-04 02:55] LABS: PARTIAL THROMBOPLASTIN TIME 26 SECONDS (22-32)
[2019-04-04 02:57] LABS: ALANINE AMINOTRANSFERASE 46 U/L (12-78); ALBUMIN 1.3 G/DL (3.4-5.0); ALBUMIN/GLOBULIN RATIO 0.3 (1.1-1.5); ALKALINE PHOSPHATASE 304 IU/L (46-116); ANION GAP 7 (8-16); ASPARTATE AMINO TRANSFERASE 19 U/L (10-37); BILIRUBIN,TOTAL 0.5 MG/DL (0.1-1.0); BLOOD UREA NITROGEN 46 MG/DL (7-18); BUN/CREATININE RATIO 37.4 (6.6-38.0); CALCIUM 8.8 MG/DL (8.5-10.1); CHLORIDE 106 MMOL/L (99-107); CREATININE 1.23 MG/DL (0.40-0.90); GLUCOSE 234 MG/DL (70-104); PHOSPHORUS 3.6 MG/DL (2.3-4.5); POTASSIUM 4.1 MMOL/L (3.5-5.1); SODIUM 138 MMOL/L (135-145); eGFR 44 ML/MIN
[2019-04-04 04:11] LABS: ABG BASE EXCESS -2.5 mmol/L (-2.0-3.0); ABG HCO3 21.1 mmol/L (22.0-26.0); ABG OXYGEN SATURATION 98.1 % (95-98); ABG PCO2 (T) 30.9 mmHg (35.0-45.0); ABG PO2 (T) 108.6 mmHg (83-108); ALLEN'S TEST Positive; FCOHb 0.7 % (0.5-1.5); FMetHb 0.3 % (0.3-1.12); FO2Hb 97.1 % (94-100); MINUTE VOLUME 7 L/min; PATIENT TEMPERATURE 36.8; PEEP 5 cm H2O; RESPIRATORY RATE 0 b/min; RESPIRATORY RATE (OBSERVED) 21 b/min; TIDAL VOLUME 386 mL; TOTAL HEMOGLOBIN 8.8 G/dl (12.0-16.0)
--- NOTE | 2019-04-04 06:28 | NUR ---
Problems reprioritized. Patient report given, questions answered & plan of care reviewed with BERTHA Ardon.
--- NOTE | 2019-04-04 06:30 | NUR ---
received report from hortencia herrera
--- NOTE | 2019-04-04 06:30 | NUR ---
Problems reprioritized. Patient report given, questions answered & plan of care reviewed with BERTHA Ardon.
[2019-04-04] MEDS: POTASSIUM BICARB 20meq eff tab 20 MEQ TABLET.EFF OGT SCH ×2 (08:00→19:27)
--- NOTE | 2019-04-04 08:00 | NUR ---
wound dressing done by wound care nurse at the bedside, she told me that orders should be changed to normal saline from the dakines solution and that she would update the orders.
[2019-04-04] MEDS: levoTHYROXINE sod inj. 100mcg/5 ml vial IV SCH (08:46)
[2019-04-04] MEDS: pantoprazole 40 MG vial IV SCH (08:47)
[2019-04-04] MEDS: POTASSIUM BICARBONATE/CIT AC 10 MEQ TABLET.EFF OGT SCH ×2 (08:47→19:27)
[2019-04-04] MEDS: lactobacillus rhamnosus 10,000 MMU CELLS/CAPSULE NG SCH ×2 (08:47→19:28)
[2019-04-04] MEDS: furosemide 40mg/4ml inj IV SCH ×2 (08:47→19:28)
[2019-04-04] MEDS: heparin, porcine 5000 units/ml vial SQ SCH ×2 (08:48→19:28)
[2019-04-04] MEDS: Dakins solution (1/4 strength) 473ml solution TP SCH (08:50)
[2019-04-04] MEDS: nystatin 15 GM powder TP SCH ×3 (08:50→20:05)
--- NOTE | 2019-04-04 10:18 | NUR ---
discussed POC during rounds with Dr. Miranda. Patients weaning parameters are not passable at this time so we are holding off on extubation and leaving sedation off at this time to let the patient wake up further. No new orders received.
[2019-04-04] MEDS: budesonide 0.5mg/2ml UD nebule IH SCH ×2 (11:08→20:33)
[2019-04-04] MEDS: [UNRECOGNIZED DRUG - REMARK] IV SCH ×2 (11:32)
--- NOTE | 2019-04-04 12:19 | NUR ---
PRESSURE ULCER EDUCATION: DEFINITION: A pressure ulcer is an area of skin that breaks down when you stay in one position too long. The constant pressure against the skin reduces the blood flow to that area and the affected tissue dies. CAUSES: "Being bedridden or in a wheelchair "Fragile skin "Having a chronic condition, such as diabetes or vascular disease "Inability to move certain parts of your body without assistance "Older age "Incontinence of urine or stool SYMPTOMS: "A reddened area that DOES NOT turn white when pressed on - this can be the beginning of a pressure ulcer "A blister, deep sore or a crater - these can be advanced pressure ulcers FIRST AID: "Relieve the pressure on this area "Keep the area clean and dry "Call your primary doctor if you see any of the above symptoms "DO NOT massage the area "DO NOT use a donut shaped or ring shaped pillow- these actually interfere with the blood flow and cause complications PREVENTION: "Check for pressure ulcers everyday "Change position at least every two hours to relieve pressure "Use items that help relieve pressure- pillows, sheepskin, foam padding, and powders. "Keep skin clean and dry "Eat healthy well balanced meals "Exercise daily IF YOU SEE ANY OF THESE SYMPTOMS WHILE IN THE HOSPITAL - TELL YOUR NURSE IMMEDIATELY. IF YOU SEE ANY OF THESE SYMPTOMS WHILE AT HOME OR HAVE ANY QUESTIONS OR CONCERNS ABOUT PRESSURE ULCERS - CALL YOUR PRIMARY DOCTOR IMMEDIATELY. WOUND INFECTION EDUCATION PROVIDED BY WOUND CARE 1. Patient instructed to call their primary doctor, or go the ED immediately if any of the following symptoms occur: * Increased pain in wound * Increase in drainage from the wound * Redness in the skin surrounding the wound * Warmth in the skin surrounding the wound * Bleeding from the wound * Temperature of 101 or greater 2. If any of these occur while in the hospital tell a nurse immediately. Addendum: 04/04/19 at 1221 by David Liu RN Amended: Links added.
[2019-04-04] MEDS: piperacillin/tazo 4.5gm/100ml 100 ML IV SCH ×2 (15:32→23:33)
--- NOTE | 2019-04-04 18:14 | NUR ---
brought it to Dr. Castro attention that this patients BP is still continuing to be high currently 191/78 even though she is on hydraline q 6. new orders are being put in currently to address this.
[2019-04-04] MEDS ORDERED: diltiazem 30mg tablet PO SCH (18:15)
--- NOTE | 2019-04-04 18:26 | NUR ---
gave report to hortencia STONE
--- NOTE | 2019-04-04 18:28 | NUR ---
Patient in room ICU 2043. I have received report from BERTHA Ardon and had the opportunity to ask questions and assume patient care.
[2019-04-04] MEDS ORDERED: diltiazem 30mg tablet NG SCH (19:07)
--- NOTE | 2019-04-04 19:15 | NUR ---
Pharmacist approved cardizem tablet crushing.
[2019-04-04] MEDS: diltiazem 30mg tablet OGT SCH (19:27)
[2019-04-04] MEDS: insulin glargine (Lantus) pen - multi-dose SQ SCH (20:05)
[2019-04-04] MEDS: FENTANYL-0.9 % NACL/PF 100 ML IV PRN (23:33)
[2019-04-05] VITALS (24 sets, daily range): BP systolic 104–172; BP diastolic 38–77
[2019-04-05] MEDS: mineral oil/petrolatum ophthal oint EACHEYE SCH ×4 (02:14→20:00)
[2019-04-05] MEDS: diltiazem 30mg tablet OGT SCH ×4 (02:14→20:00)
[2019-04-05] MEDS: levalbuterol 0.63mg/3ml nebule IH SCH ×3 (02:14→14:35)
[2019-04-05] MEDS: insulin regular, human vial - multi-dose SQ SCH ×3 (02:23→14:58)
[2019-04-05 02:50] LABS: BASOPHILS # (AUTO) 0.1 X10'3 (0-0.2); BASOPHILS % (AUTO) 0.6 % (0-1); EOSINOPHILS # (AUTO) 0.1 X10'3 (0-0.9); EOSINOPHILS % (AUTO) 1.3 % (0-6); HEMOGLOBIN 8.1 g/dl (12.0-16.0); LYMPHOCYTES # (AUTO) 0.6 X10'3 (1.1-4.8); LYMPHOCYTES % (AUTO) 6.5 % (21-51); MEAN CORPUSCULAR HGB CONC 33.8 g/dL (33.0-36.5); MEAN CORPUSCULAR VOLUME 94.7 FL (78-98); MEAN PLATELET VOLUME 9.1 FL (7.4-10.4); MONOCYTES # (AUTO) 0.4 X10'3 (0-0.9); MONOCYTES % (AUTO) 4.6 % (2-12); NEUTROPHILS # (AUTO) 7.7 X10'3 (1.8-7.7); PLATELET COUNT 437 X10'3 (140-440); RED BLOOD COUNT 2.53 X10'6 (4.20-5.60); WHITE BLOOD COUNT 8.8 X10'3 (4.5-11.0)
[2019-04-05 02:57] LABS: PARTIAL THROMBOPLASTIN TIME 26 SECONDS (22-32)
[2019-04-05 03:00] LABS: ALANINE AMINOTRANSFERASE 44 U/L (12-78); ALBUMIN 1.2 G/DL (3.4-5.0); ALBUMIN/GLOBULIN RATIO 0.3 (1.1-1.5); ALKALINE PHOSPHATASE 260 IU/L (46-116); ANION GAP 9 (8-16); ASPARTATE AMINO TRANSFERASE 21 U/L (10-37); BILIRUBIN,TOTAL 0.5 MG/DL (0.1-1.0); BLOOD UREA NITROGEN 40 MG/DL (7-18); BUN/CREATININE RATIO 35.7 (6.6-38.0); CALCIUM 8.8 MG/DL (8.5-10.1); CHLORIDE 105 MMOL/L (99-107); CREATININE 1.12 MG/DL (0.40-0.90); GLUCOSE 114 MG/DL (70-104); MAGNESIUM 1.8 MG/DL (1.5-2.4); POTASSIUM 3.6 MMOL/L (3.5-5.1); SODIUM 140 MMOL/L (135-145); TOTAL CARBON DIOXIDE 26.4 MMOL/L (24-32); TOTAL PROTEIN 5.7 G/DL (6.4-8.2); eGFR 49 ML/MIN
[2019-04-05] MEDS: normal saline 1000ml 1,000 ML IV SCH (03:28)
[2019-04-05 03:46] LABS: ABG HCO3 22.6 mmol/L (22.0-26.0); ABG OXYGEN SATURATION 96.3 % (95-98); ABG PCO2 (T) 33.3 mmHg (35.0-45.0); ABG PH (T) 7.449 (7.350-7.450); ABG PO2 (T) 83.2 mmHg (83-108); ALLEN'S TEST Positive; FCOHb 0.5 % (0.5-1.5); FMetHb 0.3 % (0.3-1.12); FO2Hb 95.5 % (94-100); MINUTE VOLUME 7 L/min; PATIENT TEMPERATURE 37.1; PEEP 5 cm H2O; RESPIRATORY RATE 0 b/min; RESPIRATORY RATE (OBSERVED) 21 b/min; TIDAL VOLUME 403 mL; TOTAL HEMOGLOBIN 9.6 G/dl (12.0-16.0)
--- NOTE | 2019-04-05 06:24 | NUR ---
Problems reprioritized. Patient report given, questions answered & plan of care reviewed with BERTHA Lees.
[2019-04-05] MEDS: piperacillin/tazo 4.5gm/100ml 100 ML IV SCH ×3 (07:14→23:23)
[2019-04-05] MEDS: POTASSIUM BICARB 20meq eff tab 20 MEQ TABLET.EFF OGT SCH ×2 (08:13→20:00)
[2019-04-05] MEDS: POTASSIUM BICARBONATE/CIT AC 10 MEQ TABLET.EFF OGT SCH ×2 (08:13→20:00)
[2019-04-05] MEDS: nystatin 15 GM powder TP SCH ×3 (08:13→23:23)
[2019-04-05] MEDS: lactobacillus rhamnosus 10,000 MMU CELLS/CAPSULE NG SCH ×2 (08:14→20:00)
[2019-04-05] MEDS: pantoprazole 40 MG vial IV SCH (08:14)
[2019-04-05] MEDS: furosemide 40mg/4ml inj IV SCH ×2 (08:14→20:08)
[2019-04-05] MEDS: heparin, porcine 5000 units/ml vial SQ SCH ×2 (08:15→20:09)
[2019-04-05] MEDS: levoTHYROXINE sod inj. 100mcg/5 ml vial IV SCH (08:20)
[2019-04-05] MEDS: budesonide 0.5mg/2ml UD nebule IH SCH ×2 (09:33→20:52)
[2019-04-05] MEDS: [UNRECOGNIZED DRUG - REMARK] IV SCH ×2 (10:55)
[2019-04-05] MEDS: scopolamine 1.5mg patch.TD72 TD SCH (13:11)
[2019-04-05] MEDS ORDERED: naloxone 0.4 mg/ml inj IV PRN (16:35)
[2019-04-05] MEDS ORDERED: racepinephrine 11.25mg/0.5ml nebule NEB PRN (16:35)
[2019-04-05] MEDS ORDERED: CADD PCA waste documentation MC PRN (16:35)
[2019-04-05] MEDS: HYDROmorphone/NS 1 mg/ml CADD 50 ML IV SCH ×5 (17:00→23:00)
--- NOTE | 2019-04-05 19:40 | NUR ---
Spoke with Idalmis Ojeda NP regarding patients Cardizem and Effer-K that was ordered for OGT, patient no longer has s/p extubation, per report MD did not want NG placed, per Idalmis Ojeda NP medications on hold for now. Also spoke with Idalmis Ojeda NP regarding Lantus, patient no longer receiving tube feedings was a level 6, current blood glucose of 104, per Idalmis Ojeda NP have patient re-meet hyperglycemic protocol, do not start D10 at this time.
[2019-04-05] MEDS: insulin glargine (Lantus) pen - multi-dose SQ SCH (20:10)
--- NOTE | 2019-04-05 20:15 | NUR ---
Patient keeps stating that she wants to go home, educated patient on need to stay for wound care and respiratory interventions.
[2019-04-05] MEDS: ipratropium/albuterol 3ml nebule NEB SCH (20:52)
[2019-04-06] VITALS (23 sets, daily range): BP systolic 113–164; BP diastolic 42–87
[2019-04-06] MEDS: HYDROmorphone/NS 1 mg/ml CADD 50 ML IV SCH ×12 (00:57→23:00)
[2019-04-06] MEDS: diltiazem 30mg tablet OGT SCH ×4 (02:00→19:31)
[2019-04-06] MEDS: mineral oil/petrolatum ophthal oint EACHEYE SCH ×4 (02:00→19:46)
[2019-04-06] MEDS: ipratropium/albuterol 3ml nebule NEB SCH ×4 (02:44→20:43)
[2019-04-06 02:57] LABS: BASOPHILS % (AUTO) 0.5 % (0-1); EOSINOPHILS # (AUTO) 0.1 X10'3 (0-0.9); EOSINOPHILS % (AUTO) 1.1 % (0-6); HEMATOCRIT 24.2 % (35.0-45.0); HEMOGLOBIN 8.4 g/dl (12.0-16.0); LYMPHOCYTES # (AUTO) 0.5 X10'3 (1.1-4.8); LYMPHOCYTES % (AUTO) 7.8 % (21-51); MEAN CORPUSCULAR HEMOGLOBIN 32.6 PG (27.0-31.0); MEAN CORPUSCULAR HGB CONC 34.5 g/dL (33.0-36.5); MEAN CORPUSCULAR VOLUME 94.4 FL (78-98); MEAN PLATELET VOLUME 8.8 FL (7.4-10.4); MONOCYTES # (AUTO) 0.4 X10'3 (0-0.9); MONOCYTES % (AUTO) 5.4 % (2-12); NEUTROPHILS % (AUTO) 85.2 % (42-75); PLATELET COUNT 461 X10'3 (140-440); RED BLOOD COUNT 2.57 X10'6 (4.20-5.60); RED CELL DISTRIBUTION WIDTH 16.9 % (11.5-14.5)
[2019-04-06 03:02] LABS: PARTIAL THROMBOPLASTIN TIME 25 SECONDS (22-32)
[2019-04-06 03:16] LABS: ALANINE AMINOTRANSFERASE 41 U/L (12-78); ALBUMIN 1.3 G/DL (3.4-5.0); ALBUMIN/GLOBULIN RATIO 0.3 (1.1-1.5); ALKALINE PHOSPHATASE 212 IU/L (46-116); ANION GAP 11 (8-16); ASPARTATE AMINO TRANSFERASE 23 U/L (10-37); BILIRUBIN,TOTAL 0.5 MG/DL (0.1-1.0); BLOOD UREA NITROGEN 37 MG/DL (7-18); BUN/CREATININE RATIO 30.6 (6.6-38.0); CALCIUM 8.5 MG/DL (8.5-10.1); CHLORIDE 106 MMOL/L (99-107); CREATININE 1.21 MG/DL (0.40-0.90); GLUCOSE 161 MG/DL (70-104); MAGNESIUM 1.9 MG/DL (1.5-2.4); PHOSPHORUS 4.1 MG/DL (2.3-4.5); POTASSIUM 3.1 MMOL/L (3.5-5.1); SODIUM 143 MMOL/L (135-145); TOTAL CARBON DIOXIDE 26.2 MMOL/L (24-32); TOTAL PROTEIN 5.9 G/DL (6.4-8.2); TRIGLYCERIDES 149 MG/DL (20-135); eGFR 45 ML/MIN
[2019-04-06] MEDS: potassium Cl 20mEq/100mL bag 100 ML IV PRN ×2 (04:58→09:44)
--- NOTE | 2019-04-06 06:53 | NUR ---
Problems reprioritized. Patient report given, questions answered & plan of care reviewed with Reva STONE.
--- NOTE | 2019-04-06 06:55 | NUR ---
Patient in room ICU 2043. I have received report from BERTHA michel and had the opportunity to ask questions and assume patient care.
[2019-04-06] MEDS: POTASSIUM BICARB 20meq eff tab 20 MEQ TABLET.EFF OGT SCH ×2 (08:00→19:31)
[2019-04-06] MEDS: POTASSIUM BICARBONATE/CIT AC 10 MEQ TABLET.EFF OGT SCH ×2 (08:00→19:31)
[2019-04-06] MEDS: lactobacillus rhamnosus 10,000 MMU CELLS/CAPSULE NG SCH ×2 (08:00→19:31)
[2019-04-06] MEDS: budesonide 0.5mg/2ml UD nebule IH SCH ×2 (08:11→20:43)
[2019-04-06] MEDS: pantoprazole 40 MG vial IV SCH (08:18)
[2019-04-06] MEDS: furosemide 40mg/4ml inj IV SCH ×2 (08:18→19:45)
[2019-04-06] MEDS: levoTHYROXINE sod inj. 100mcg/5 ml vial IV SCH (08:18)
[2019-04-06] MEDS: nystatin 15 GM powder TP SCH ×3 (08:19→20:09)
[2019-04-06] MEDS ORDERED: VANCOMYCIN LEVEL IV ONE (09:30)
[2019-04-06] MEDS: MULTIVIT-MIN/FERROUS GLUCONATE 9 MG/15 ML LIQUID OGT SCH (10:00)
[2019-04-06] MEDS: piperacillin/tazo 4.5gm/100ml 100 ML IV SCH ×2 (11:01→16:00)
--- NOTE | 2019-04-06 11:58 | NUR ---
F/u: Pt extubated 04/05 pending SP BSS for diet advancement. 1175ml colostomy output past 24 hours down from 1500's prior post-op. PALB up to 18 from 15.6 prior and pt tolerated TF at goal. Will monitor for PO diet advancement and tolerance. Will need colostomy ed once appropriate prior to d/c. Reassessment: Pt remains intubated and tolerating TF at goal with GRV WNL with range 10-90 mL. Pt no longer receiving TPN however with vitamin bag. LBM 04/02 with 1250 mL stool output per I&O. Wt fluctuates, likely r/t fluid with +6.7 L over the last four days. Pt to start receiving Lasix per MD at critical care rounds. Will continue to follow closely. Recommend: 1. Advance diet per MD/SP to carb controlled/heart healthy 2. monitor for ONS needs once diet advanced 3. monitor colostomy output and need for anti-diarrheal once PO diet 4. daily weights 5. Colostomy education once extubated and stable Addendum: 04/06/19 at [address] Amended: Links added.
--- NOTE | 2019-04-06 14:00 | NUR ---
sat pt up in bed,attempted small sips of water with chin tuck,pt jaswant. first sip ,then coughed on second sip;failed bedside swallow
[2019-04-06] MEDS: heparin, porcine 5000 units/ml vial SQ SCH ×2 (15:07→19:45)
--- NOTE | 2019-04-06 18:29 | NUR ---
Problems reprioritized. Patient report given, questions answered & plan of care reviewed with BERTHA Rizzo .
--- NOTE | 2019-04-06 18:30 | NUR ---
Patient in room ICU 2043. I have received report from Reva STONE and had the opportunity to ask questions and assume patient care.
[2019-04-06] MEDS: insulin Lispro (HumaLOG) vial - multi-dose SQ SCH (20:09)
[2019-04-06] MEDS: insulin glargine (Lantus) pen - multi-dose SQ SCH (21:34)
[2019-04-07] VITALS (18 sets, daily range): BP systolic 135–182; BP diastolic 58–99
[2019-04-07] MEDS: HYDROmorphone/NS 1 mg/ml CADD 50 ML IV SCH ×12 (01:00→23:00)
[2019-04-07] MEDS: diltiazem 30mg tablet OGT SCH ×2 (01:26→08:48)
[2019-04-07] MEDS: mineral oil/petrolatum ophthal oint EACHEYE SCH (01:42)
[2019-04-07] MEDS: piperacillin/tazo 4.5gm/100ml 100 ML IV SCH ×3 (01:42→16:22)
[2019-04-07] MEDS: insulin Lispro (HumaLOG) vial - multi-dose SQ SCH ×2 (01:48→14:32)
[2019-04-07 02:46] LABS: BASOPHILS # (AUTO) 0.1 X10'3 (0-0.2); BASOPHILS % (AUTO) 1.1 % (0-1); EOSINOPHILS # (AUTO) 0.1 X10'3 (0-0.9); EOSINOPHILS % (AUTO) 2.6 % (0-6); HEMATOCRIT 25.7 % (35.0-45.0); HEMOGLOBIN 8.6 g/dl (12.0-16.0); LYMPHOCYTES # (AUTO) 0.3 X10'3 (1.1-4.8); LYMPHOCYTES % (AUTO) 5.4 % (21-51); MEAN CORPUSCULAR HEMOGLOBIN 32.1 PG (27.0-31.0); MEAN CORPUSCULAR HGB CONC 33.6 g/dL (33.0-36.5); MEAN CORPUSCULAR VOLUME 95.4 FL (78-98); MEAN PLATELET VOLUME 8.5 FL (7.4-10.4); MONOCYTES # (AUTO) 0.3 X10'3 (0-0.9); NEUTROPHILS # (AUTO) 4.5 X10'3 (1.8-7.7); NEUTROPHILS % (AUTO) 85.9 % (42-75); PLATELET COUNT 469 X10'3 (140-440); RED BLOOD COUNT 2.69 X10'6 (4.20-5.60); RED CELL DISTRIBUTION WIDTH 17.3 % (11.5-14.5); WHITE BLOOD COUNT 5.3 X10'3 (4.5-11.0)
[2019-04-07 02:54] LABS: PARTIAL THROMBOPLASTIN TIME 27 SECONDS (22-32)
[2019-04-07 02:59] LABS: ALANINE AMINOTRANSFERASE 42 U/L (12-78); ALBUMIN 1.5 G/DL (3.4-5.0); ALBUMIN/GLOBULIN RATIO 0.3 (1.1-1.5); ALKALINE PHOSPHATASE 184 IU/L (46-116); ANION GAP 10 (8-16); ASPARTATE AMINO TRANSFERASE 20 U/L (10-37); BILIRUBIN,TOTAL 0.5 MG/DL (0.1-1.0); BLOOD UREA NITROGEN 31 MG/DL (7-18); BUN/CREATININE RATIO 25.2 (6.6-38.0); CALCIUM 8.9 MG/DL (8.5-10.1); CHLORIDE 106 MMOL/L (99-107); CREATININE 1.23 MG/DL (0.40-0.90); GLUCOSE 226 MG/DL (70-104); POTASSIUM 3.2 MMOL/L (3.5-5.1); SODIUM 144 MMOL/L (135-145); TOTAL CARBON DIOXIDE 27.8 MMOL/L (24-32); TOTAL PROTEIN 6.4 G/DL (6.4-8.2); eGFR 44 ML/MIN
[2019-04-07] MEDS: potassium Cl 20mEq/100mL bag 100 ML IV PRN ×3 (03:33→12:58)
[2019-04-07] MEDS: normal saline 1000ml 1,000 ML IV SCH (03:33)
[2019-04-07] MEDS: ipratropium/albuterol 3ml nebule NEB SCH ×4 (03:34→21:14)
--- NOTE | 2019-04-07 06:30 | NUR ---
Report received from BERTHA Rizzo
--- NOTE | 2019-04-07 06:32 | NUR ---
Problems reprioritized. Patient report given, questions answered & plan of care reviewed with Katarina STONE.
[2019-04-07] MEDS: POTASSIUM BICARB 20meq eff tab 20 MEQ TABLET.EFF OGT SCH ×2 (08:00→19:40)
[2019-04-07] MEDS: POTASSIUM BICARBONATE/CIT AC 10 MEQ TABLET.EFF OGT SCH ×2 (08:00→19:40)
[2019-04-07] MEDS: budesonide 0.5mg/2ml UD nebule IH SCH ×2 (08:11→21:14)
[2019-04-07] MEDS: pantoprazole 40 MG vial IV SCH (08:46)
[2019-04-07] MEDS: furosemide 40mg/4ml inj IV SCH ×2 (08:47→19:39)
[2019-04-07] MEDS: heparin, porcine 5000 units/ml vial SQ SCH ×2 (08:47→19:40)
[2019-04-07] MEDS: lactobacillus rhamnosus 10,000 MMU CELLS/CAPSULE NG SCH ×2 (08:48→19:40)
[2019-04-07] MEDS: nystatin 15 GM powder TP SCH ×3 (08:48→19:39)
[2019-04-07] MEDS: MULTIVIT-MIN/FERROUS GLUCONATE 9 MG/15 ML LIQUID OGT SCH (11:04)
[2019-04-07] MEDS: levoTHYROXINE sod inj. 100mcg/5 ml vial IV SCH (11:05)
--- NOTE | 2019-04-07 12:20 | NUR ---
Reassessment: Pt advanced to pureed/NTL diet per SP recs PO pending after lunch today. Colostomy output remains at least 1L/day; may benefit from anti-diarrheal per surgeon approval. Receiving K replacement on lasix. Will monitor for PO diet tolerance and additional protein needs s/p extubation. Will need colostomy once stable and appropriate prior to d/c. Recommend: 1. Advance diet per MD/SP to carb controlled/heart healthy 2. monitor for ONS needs pending PO on current pureed/NTL diet 3. monitor colostomy output and need for anti-diarrheal once PO diet 4. daily weights 5. Colostomy education once stable prior to d/c Addendum: 04/07/19 at [address] Amended: Links added.
[2019-04-07] MEDS ORDERED: polyvinyl alcohol ophthalmic drops 15ml bottle EACHEYE PRN (13:00)
[2019-04-07] MEDS ORDERED: naphazoline/pheniramine eye 1 DROP BOTTLE EACHEYE PRN (13:00)
[2019-04-07] MEDS ORDERED: albuterol 2.5 MG/3 ML nebule NEB PRN (13:10)
--- NOTE | 2019-04-07 14:47 | NUR ---
Patient in room ICU 2043. I have received report from Katarina STONE ICU and had the opportunity to ask questions and assume patient care.
--- NOTE | 2019-04-07 15:30 | NUR ---
Patient transferred to room 341 via hospital bed, with conveyor monitor, 2L nc, and all personal belongings. Receiving nurse, Dustin, at bedside.
[2019-04-07] MEDS: ipratropium/albuterol 3ml nebule NEB PRN (16:08)
--- NOTE | 2019-04-07 16:17 | NUR ---
Pt received from ICU and placedin room 341. Pt pulled over on jose slide. Pt C/O of wheezing. RT paged. Treatment given. Call light in reach. VS taken.
[2019-04-07] MEDS ORDERED: insulin Lispro (HumaLOG) vial - multi-dose SQ SCH (17:30)
--- NOTE | 2019-04-07 18:18 | NUR ---
Problems reprioritized. Patient report given, questions answered & plan of care reviewed with Tisha Limon RN.
--- NOTE | 2019-04-07 18:29 | NUR ---
Called Dr. Choi and clarified insulin orders for patient. Will be using protocol order for humalog and follow lantus order on patients med rec. order carried out.
--- NOTE | 2019-04-07 18:40 | NUR ---
tele reported pt is on afib HR 70, pt at rest with BP 117/74, denies chest pain, called Dr. Peng and no new order.
--- NOTE | 2019-04-07 18:44 | NUR ---
Patient in room [facility] 341. I have received report from BERTHA Chan and had the opportunity to ask questions and assume patient care. Addendum: 04/07/19 at 1844 by Gillian Chavez RN Amended: Links added.
[2019-04-07] MEDS: Dakins solution (1/4 strength) 473ml solution TP SCH (21:48)
[2019-04-07] MEDS: insulin glargine (Lantus) pen - multi-dose SQ SCH (21:53)
[2019-04-08] VITALS: BP 150/77
[2019-04-08] MEDS: piperacillin/tazo 4.5gm/100ml 100 ML IV SCH ×3 (00:55→16:27)
[2019-04-08] MEDS: HYDROmorphone/NS 1 mg/ml CADD 50 ML IV SCH ×5 (01:00→09:00)
[2019-04-08] MEDS: ipratropium/albuterol 3ml nebule NEB SCH ×4 (03:09→20:34)
[2019-04-08 05:23] LABS: BASOPHILS # (AUTO) 0.1 X10'3 (0-0.2); BASOPHILS % (AUTO) 1.2 % (0-1); EOSINOPHILS # (AUTO) 0.1 X10'3 (0-0.9); EOSINOPHILS % (AUTO) 2.3 % (0-6); HEMATOCRIT 26.8 % (35.0-45.0); LYMPHOCYTES # (AUTO) 0.4 X10'3 (1.1-4.8); LYMPHOCYTES % (AUTO) 7.2 % (21-51); MEAN CORPUSCULAR HEMOGLOBIN 32.3 PG (27.0-31.0); MEAN CORPUSCULAR HGB CONC 33.8 g/dL (33.0-36.5); MEAN CORPUSCULAR VOLUME 95.5 FL (78-98); MONOCYTES # (AUTO) 0.3 X10'3 (0-0.9); MONOCYTES % (AUTO) 6.6 % (2-12); NEUTROPHILS # (AUTO) 4.3 X10'3 (1.8-7.7); NEUTROPHILS % (AUTO) 82.7 % (42-75); PLATELET COUNT 406 X10'3 (140-440); WHITE BLOOD COUNT 5.2 X10'3 (4.5-11.0)
[2019-04-08 05:32] LABS: ALANINE AMINOTRANSFERASE 40 U/L (12-78); ALBUMIN 1.5 G/DL (3.4-5.0); ALBUMIN/GLOBULIN RATIO 0.3 (1.1-1.5); ALKALINE PHOSPHATASE 168 IU/L (46-116); ANION GAP 8 (8-16); ASPARTATE AMINO TRANSFERASE 20 U/L (10-37); BILIRUBIN,TOTAL 0.4 MG/DL (0.1-1.0); BLOOD UREA NITROGEN 25 MG/DL (7-18); BUN/CREATININE RATIO 20.3 (6.6-38.0); CHLORIDE 109 MMOL/L (99-107); CREATININE 1.23 MG/DL (0.40-0.90); GLUCOSE 91 MG/DL (70-104); PHOSPHORUS 2.9 MG/DL (2.3-4.5); SODIUM 147 MMOL/L (135-145); TOTAL CARBON DIOXIDE 30.2 MMOL/L (24-32); TOTAL PROTEIN 6.6 G/DL (6.4-8.2); eGFR 44 ML/MIN
[2019-04-08 05:34] LABS: POTASSIUM 2.9 MMOL/L (3.5-5.1)
[2019-04-08] MEDS ORDERED: potassium Cl 20 mEq SR tablet PO PRN ×2 (05:45)
--- NOTE | 2019-04-08 06:11 | NUR ---
Problems reprioritized. Patient report given, questions answered & plan of care reviewed with BERTHA Lou.
--- NOTE | 2019-04-08 06:28 | NUR ---
Patient in room [facility] 341. I have received report from Tisha STONE and had the opportunity to ask questions and assume patient care.
[2019-04-08] MEDS ORDERED: levoTHYROXINE 100mcg tablet PO SCH (07:00)
[2019-04-08] MEDS: furosemide 40mg/4ml inj IV SCH ×2 (07:48→20:00)
[2019-04-08] MEDS: pantoprazole 40mg Tablet.DR PO SCH ×2 (07:49→08:00)
[2019-04-08] MEDS: heparin, porcine 5000 units/ml vial SQ SCH ×2 (07:49→20:00)
[2019-04-08] MEDS: loratadine 10mg tablet PO SCH ×2 (07:50→08:00)
[2019-04-08] MEDS: HYDROchlorothiazide 25mg tablet PO SCH ×2 (07:50→08:00)
[2019-04-08] MEDS: allopurinol 100mg tablet PO SCH ×2 (07:50→08:00)
[2019-04-08] MEDS: calcium carbonate/vitamin D3 tablet PO SCH ×2 (07:50→08:00)
[2019-04-08] MEDS: multivitamins, therapeutics tablet PO SCH ×2 (07:51→08:00)
[2019-04-08] MEDS: atorvastatin 20mg tablet PO SCH ×2 (07:51→08:00)
[2019-04-08] MEDS: levoTHYROXINE 75mcg tablet PO SCH ×2 (07:51→08:00)
[2019-04-08] MEDS: lisinopril 10 MG tablet PO SCH ×2 (07:52→08:00)
[2019-04-08] MEDS: montelukast 10mg tablet PO SCH ×2 (07:52→08:00)
[2019-04-08] MEDS: lactobacillus rhamnosus 10,000 MMU CELLS/CAPSULE NG SCH ×3 (07:52→20:00)
[2019-04-08 08:00] VITALS: BP 143/77
[2019-04-08] MEDS: diltiazem CD 120mg capsule (once-daily) PO SCH ×2 (08:00→08:10)
[2019-04-08] MEDS: POTASSIUM BICARBONATE/CIT AC 10 MEQ TABLET.EFF OGT SCH ×2 (08:00→20:00)
[2019-04-08] MEDS ORDERED: insulin Lispro (HumaLOG) vial - multi-dose SQ SCH (08:00)
[2019-04-08] MEDS: POTASSIUM BICARB 20meq eff tab 20 MEQ TABLET.EFF OGT SCH ×2 (08:00→20:00)
[2019-04-08] MEDS: insulin glargine (Lantus) pen - multi-dose SQ SCH ×2 (08:00→20:00)
[2019-04-08] MEDS: fluticasone nasal spray 16GM bottle NS SCH (08:01)
[2019-04-08] MEDS: nystatin 15 GM powder TP SCH ×3 (08:06→21:00)
[2019-04-08] MEDS: Dakins solution (1/4 strength) 473ml solution TP SCH ×2 (08:06→20:00)
[2019-04-08] MEDS: budesonide 0.5mg/2ml UD nebule IH SCH ×2 (08:51→20:34)
[2019-04-08] MEDS: MULTIVIT-MIN/FERROUS GLUCONATE 9 MG/15 ML LIQUID OGT SCH (10:00)
[2019-04-08 11:00] VITALS: BP 160/74
[2019-04-08] MEDS ORDERED: HYDROcodone/acetaminophen 10/325mg tab PO PRN ×2 (11:25)
[2019-04-08] MEDS: potassium CL 10mEq/100ml bag 100 ML IV PRN ×4 (11:29→17:16)
[2019-04-08] MEDS: sodium chloride 0.45% 1,000 ML IV SCH (11:33)
[2019-04-08] MEDS ORDERED: proMETHazine 25mg rectal suppository RC PRN (11:45)
[2019-04-08] MEDS ORDERED: proMETHazine 25mg tablet PO PRN (11:45)
[2019-04-08] MEDS: scopolamine 1.5mg patch.TD72 TD SCH (13:56)
--- NOTE | 2019-04-08 18:41 | NUR ---
Problems reprioritized. Patient report given, questions answered & plan of care reviewed with Lacey STONE.
--- NOTE | 2019-04-08 22:21 | NUR ---
Pt completed about 1/4 of her breathing treatment, given at 2035. She started pulling at the mask, and when asked what was wrong, she gives no clear answers and refused to let me places the nebulizer mask back on. I asked pt if she was ready for her home cpap mask, she nodded yes. While attempting to help the pt place her cpap mask on, I asked her to lift her head, she started saying "ouch". When asked what happened, she said I was trying to assault her. I explained to her that I asked her to lift her head for me and that she needed to help me by cooperating with mask placement. Pt seemed more comfortable once cpap masked was placed. Will check pt for her 299 breathing tx that is due, not sure she will be too compliant. Addendum: 04/08/19 at 2225 by Joie Amezcua RT Amended: Links added.
[2019-04-09] MEDS: piperacillin/tazo 4.5gm/100ml 100 ML IV SCH ×2 (00:16→08:38)
[2019-04-09] MEDS: ipratropium/albuterol 3ml nebule NEB SCH ×4 (04:26→20:48)
--- NOTE | 2019-04-09 06:33 | NUR ---
Patient in room [facility] 341. I have received report from Lacey STONE and had the opportunity to ask questions and assume patient care.
[2019-04-09 06:55] LABS: BASOPHILS % (AUTO) 0.8 % (0-1); EOSINOPHILS # (AUTO) 0.1 X10'3 (0-0.9); EOSINOPHILS % (AUTO) 1.6 % (0-6); HEMATOCRIT 27.2 % (35.0-45.0); HEMOGLOBIN 9.1 g/dl (12.0-16.0); LYMPHOCYTES # (AUTO) 0.4 X10'3 (1.1-4.8); LYMPHOCYTES % (AUTO) 9.1 % (21-51); MEAN CORPUSCULAR HEMOGLOBIN 31.9 PG (27.0-31.0); MEAN CORPUSCULAR HGB CONC 33.6 g/dL (33.0-36.5); MEAN CORPUSCULAR VOLUME 95.1 FL (78-98); MEAN PLATELET VOLUME 7.9 FL (7.4-10.4); MONOCYTES # (AUTO) 0.3 X10'3 (0-0.9); MONOCYTES % (AUTO) 6.8 % (2-12); NEUTROPHILS # (AUTO) 3.4 X10'3 (1.8-7.7); NEUTROPHILS % (AUTO) 81.7 % (42-75); PLATELET COUNT 343 X10'3 (140-440); RED BLOOD COUNT 2.86 X10'6 (4.20-5.60); RED CELL DISTRIBUTION WIDTH 16.7 % (11.5-14.5); WHITE BLOOD COUNT 4.1 X10'3 (4.5-11.0)
[2019-04-09 07:16] LABS: ALANINE AMINOTRANSFERASE 38 U/L (12-78); ALBUMIN 1.6 G/DL (3.4-5.0); ALBUMIN/GLOBULIN RATIO 0.3 (1.1-1.5); ALKALINE PHOSPHATASE 154 IU/L (46-116); ANION GAP 12 (8-16); ASPARTATE AMINO TRANSFERASE 28 U/L (10-37); BILIRUBIN,TOTAL 0.5 MG/DL (0.1-1.0); BLOOD UREA NITROGEN 23 MG/DL (7-18); BUN/CREATININE RATIO 18.7 (6.6-38.0); CALCIUM 8.4 MG/DL (8.5-10.1); CHLORIDE 107 MMOL/L (99-107); CREATININE 1.23 MG/DL (0.40-0.90); GLUCOSE 123 MG/DL (70-104); MAGNESIUM 1.9 MG/DL (1.5-2.4); PHOSPHORUS 3.9 MG/DL (2.3-4.5); SODIUM 146 MMOL/L (135-145); TOTAL CARBON DIOXIDE 26.9 MMOL/L (24-32); TOTAL PROTEIN 6.6 G/DL (6.4-8.2); eGFR 44 ML/MIN
[2019-04-09 07:29] LABS: POTASSIUM 2.9 MMOL/L (3.5-5.1)
[2019-04-09] MEDS: loratadine 10mg tablet PO SCH (08:00)
[2019-04-09] MEDS: POTASSIUM BICARB 20meq eff tab 20 MEQ TABLET.EFF OGT SCH ×2 (08:00→21:05)
[2019-04-09] MEDS: Dakins solution (1/4 strength) 473ml solution TP SCH ×2 (08:00→21:00)
[2019-04-09] MEDS: insulin glargine (Lantus) pen - multi-dose SQ SCH ×2 (08:00→21:10)
[2019-04-09] MEDS: atorvastatin 20mg tablet PO SCH (08:00)
[2019-04-09] MEDS: levoTHYROXINE 75mcg tablet PO SCH (08:00)
[2019-04-09] MEDS: fluticasone nasal spray 16GM bottle NS SCH (08:00)
[2019-04-09] MEDS: heparin, porcine 5000 units/ml vial SQ SCH ×2 (08:00→21:08)
[2019-04-09] MEDS: multivitamins, therapeutics tablet PO SCH (08:00)
[2019-04-09] MEDS: calcium carbonate/vitamin D3 tablet PO SCH (08:00)
[2019-04-09] MEDS: lactobacillus rhamnosus 10,000 MMU CELLS/CAPSULE NG SCH (08:00)
[2019-04-09] MEDS: POTASSIUM BICARBONATE/CIT AC 10 MEQ TABLET.EFF OGT SCH (08:00)
[2019-04-09] MEDS: nystatin 15 GM powder TP SCH ×3 (08:00→21:11)
[2019-04-09] MEDS: montelukast 10mg tablet PO SCH (08:00)
[2019-04-09] MEDS: allopurinol 100mg tablet PO SCH (08:00)
[2019-04-09] MEDS: furosemide 40mg/4ml inj IV SCH ×2 (08:28→21:05)
[2019-04-09] MEDS: lisinopril 10 MG tablet PO SCH (08:34)
[2019-04-09] MEDS: HYDROchlorothiazide 25mg tablet PO SCH (08:34)
[2019-04-09] MEDS: diltiazem CD 120mg capsule (once-daily) PO SCH (08:35)
[2019-04-09] MEDS: budesonide 0.5mg/2ml UD nebule IH SCH ×2 (09:20→20:48)
[2019-04-09 09:26] LABS: ABG BASE EXCESS -1.7 mmol/L (-2.0-3.0); ABG HCO3 22.6 mmol/L (22.0-26.0); ABG OXYGEN SATURATION 92.4 % (95-98); ABG PCO2 (T) 36.5 mmHg (35.0-45.0); ABG PH (T) 7.409 (7.350-7.450); ABG PO2 (T) 66.5 mmHg (83-108); ALLEN'S TEST Positive; FCOHb 0.3 % (0.5-1.5); FLOW 4 L/min; FMetHb 0.3 % (0.3-1.12); FO2Hb 91.8 % (94-100)
--- NOTE | 2019-04-09 09:45 | NUR ---
Called Dr Miranda regarding patients ABG and Chest xray results. Per Dr Miranda would like an induced sputum. Dr Miranda aware patient just received an RT treatment, RR rate is 32 HR 132 BP 155/97 did receive her Lisinipril and HCTZ and Lasix this am, patient refused all other medication. Dr Miranda is aware that patient is on antibiotics. Asked Dr Miranda if he would like to transfer patient to higher level of care due to her HR and RR rate patient is confused and diaphoretic. Per Dr Miranda he does not want to transfer patient due to her wound.
--- NOTE | 2019-04-09 09:49 | NUR ---
Shannan Canela aware patients old stoma site looks chester per handbag framer and her WBC 4.1 Darleen is assessing wound with primary RN Odalys
[2019-04-09] MEDS: MULTIVIT-MIN/FERROUS GLUCONATE 9 MG/15 ML LIQUID OGT SCH (10:00)
[2019-04-09] MEDS: potassium CL 10mEq/100ml bag 100 ML IV PRN ×2 (10:01→11:33)
[2019-04-09] MEDS: pantoprazole 40 MG vial IV SCH (10:52)
[2019-04-09 11:00] VITALS: BP 114/78
[2019-04-09] MEDS ORDERED: glucagon, human recombinant 1mg kit SUBCUT PRN (11:10)
[2019-04-09] MEDS ORDERED: dextrose ORAL solution 15 GM/59 ML bottle PO PRN ×2 (11:10)
[2019-04-09] MEDS ORDERED: MESSAGE TO PHARMACY PO ONE (11:10)
[2019-04-09] MEDS ORDERED: dextrose 50%-water 50ml dispensing syringe IV PRN ×2 (11:10)
[2019-04-09] MEDS ORDERED: Potassium Cl inj 20 MEQ in normal saline 250ml IV soln 250 ML IV ONE ×2 (13:00→14:00)
--- NOTE | 2019-04-09 14:02 | NUR ---
Shannan Canela read radiology report ok to use corpack to start tube feeding. Also, ok to place humidity to O2
[2019-04-09] MEDS: methylPREDNISolone sod succ 125mg/2ml vial IV SCH ×2 (14:26→21:05)
[2019-04-09] MEDS ORDERED: HYDROcodone/acetaminophen 7.5MG/325MG per 15ml UD CUP PO PRN (14:35)
--- NOTE | 2019-04-09 15:01 | NUR ---
TF consult: Pt s/p respiratory distress w/ mild hypoxemia and wants only bipap no re-intubation per MD note. Essentially no nutrition via PO s/p extubation. Corpak placed today verified in gastric fundus w/ NGTF To start for nutrition and med delivery per MD note. Colostomy output varies past 2 days 200ml-735ml today w/ low PO meals prior. Will monitor for TF tolerance; recs below. Recommend: 1. NGTF per MD via corpak using Glucerna 1.2 at 75ml/hr goal; to provide 1800ml fluid, 2160kcals, 1458ml free water, and 108g protein. Initiate at 20ml/hr and advance 20ml Q8 to goal as tolerated. 2. water flush 200ml Q4 3. PALB Q /; daily wts 4. monitor colostomy output and need for anti-diarrheal 5. Advance diet per MD/SP to carb controlled/heart healthy 6. Colostomy education once stable prior to d/c Addendum: 04/09/19 at [address] Amended: Links added.
[2019-04-09] MEDS ORDERED: acetaminophen 325mg tablet CORPAK PRN (15:45)
[2019-04-09] MEDS ORDERED: dextrose ORAL solution 15 GM/59 ML bottle CORPAK PRN ×2 (15:54→15:56)
[2019-04-09] MEDS ORDERED: proMETHazine 25mg tablet CORPAK PRN (15:55)
[2019-04-09] MEDS ORDERED: Potassium Cl 40 MEQ in NS 500 ML IV ONE (16:00)
[2019-04-09] MEDS ORDERED: temazepam 15mg capsule CORPAK PRN (16:01)
[2019-04-09] MEDS ORDERED: potassium Cl 20 mEq SR tablet CORPAK PRN ×2 (16:06→16:15)
[2019-04-09] MEDS: cefepime 1GM in D5W 50mL 50 ML IV SCH ×2 (16:19→18:03)
--- NOTE | 2019-04-09 16:46 | NUR ---
Contacted Shannan Canela regarding patient Has a temp of 101.7 Axillary , Heart rate 111 BP 137/82 RR 36 SPo2 95% 6L via NC and CPAP machine. Patients urine output for shift is roughly 300ml's. Shannan aware that Dr Chan came around to see patient and removed some slough from the old stoma site continue with current dressing orders. Received orders from Shannan to get Blood cultures x2, procalcitonin, Lactic acid. holding on starting cefapime until blood cultures are drawn.
--- NOTE | 2019-04-09 17:31 | NUR ---
patient started on tube feed glycerna @20mls/hr following placement of corpak and xray to affirm placement. will continue to monitor.
--- NOTE | 2019-04-09 18:18 | NUR ---
Problems reprioritized. Patient report given, questions answered & plan of care reviewed with jenna STONE.
[2019-04-09 19:53] LABS: BASOPHILS % (AUTO) 0.4 % (0-1); EOSINOPHILS % (AUTO) 0.1 % (0-6); HEMATOCRIT 30.5 % (35.0-45.0); HEMOGLOBIN 10.2 g/dl (12.0-16.0); LYMPHOCYTES # (AUTO) 0.2 X10'3 (1.1-4.8); LYMPHOCYTES % (AUTO) 2.3 % (21-51); MEAN CORPUSCULAR HEMOGLOBIN 32.2 PG (27.0-31.0); MEAN CORPUSCULAR HGB CONC 33.2 g/dL (33.0-36.5); MEAN PLATELET VOLUME 8.4 FL (7.4-10.4); MONOCYTES # (AUTO) 0.1 X10'3 (0-0.9); MONOCYTES % (AUTO) 1.7 % (2-12); NEUTROPHILS # (AUTO) 7.6 X10'3 (1.8-7.7); NEUTROPHILS % (AUTO) 95.5 % (42-75); PLATELET COUNT 309 X10'3 (140-440); RED BLOOD COUNT 3.15 X10'6 (4.20-5.60); RED CELL DISTRIBUTION WIDTH 17.4 % (11.5-14.5); WHITE BLOOD COUNT 7.9 X10'3 (4.5-11.0)
[2019-04-09] MEDS: insulin regular, human vial - multi-dose SQ SCH (20:00)
[2019-04-09 20:06] LABS: ALANINE AMINOTRANSFERASE 197 U/L (12-78); ALBUMIN 1.7 G/DL (3.4-5.0); ALBUMIN/GLOBULIN RATIO 0.3 (1.1-1.5); ALKALINE PHOSPHATASE 167 IU/L (46-116); ANION GAP 18 (8-16); ASPARTATE AMINO TRANSFERASE 300 U/L (10-37); BILIRUBIN,TOTAL 0.6 MG/DL (0.1-1.0); BLOOD UREA NITROGEN 37 MG/DL (7-18); BUN/CREATININE RATIO 18.8 (6.6-38.0); CALCIUM 8.5 MG/DL (8.5-10.1); CHLORIDE 105 MMOL/L (99-107); CREATININE 1.97 MG/DL (0.40-0.90); GLUCOSE 221 MG/DL (70-104); SODIUM 143 MMOL/L (135-145); TOTAL CARBON DIOXIDE 20.1 MMOL/L (24-32); TOTAL PROTEIN 7.2 G/DL (6.4-8.2); eGFR 25 ML/MIN
[2019-04-09 20:07] LABS: POTASSIUM 4.9 MMOL/L (3.5-5.1)
[2019-04-09] MEDS: lactobacillus rhamnosus 10,000 MMU CELLS/CAPSULE CORPAK SCH (20:30)
[2019-04-09] MEDS: diltiazem 30mg tablet PO SCH (21:07)
[2019-04-10] VITALS (10 sets, daily range): BP systolic 111–148; BP diastolic 48–94
[2019-04-10] MEDS: cefepime 1GM in D5W 50mL 50 ML IV SCH ×2 (00:11→09:14)
[2019-04-10] MEDS: insulin regular, human vial - multi-dose SQ SCH ×4 (01:50→20:16)
[2019-04-10] MEDS: methylPREDNISolone sod succ 125mg/2ml vial IV SCH ×4 (02:09→19:47)
[2019-04-10] MEDS: diltiazem 30mg tablet PO SCH ×4 (02:22→19:48)
[2019-04-10] MEDS: ipratropium/albuterol 3ml nebule NEB SCH ×3 (03:24→20:00)
[2019-04-10 05:53] LABS: BASOPHILS % (AUTO) 0.2 % (0-1); EOSINOPHILS % (AUTO) 0 % (0-6); HEMATOCRIT 29.9 % (35.0-45.0); LYMPHOCYTES # (AUTO) 0.4 X10'3 (1.1-4.8); LYMPHOCYTES % (AUTO) 3.8 % (21-51); MEAN CORPUSCULAR HGB CONC 33.5 g/dL (33.0-36.5); MEAN CORPUSCULAR VOLUME 95.5 FL (78-98); MEAN PLATELET VOLUME 8.3 FL (7.4-10.4); MONOCYTES # (AUTO) 0.2 X10'3 (0-0.9); MONOCYTES % (AUTO) 1.5 % (2-12); NEUTROPHILS # (AUTO) 10.2 X10'3 (1.8-7.7); NEUTROPHILS % (AUTO) 94.5 % (42-75); PLATELET COUNT 356 X10'3 (140-440); RED BLOOD COUNT 3.13 X10'6 (4.20-5.60); RED CELL DISTRIBUTION WIDTH 17.1 % (11.5-14.5); WHITE BLOOD COUNT 10.8 X10'3 (4.5-11.0)
[2019-04-10 06:14] LABS: ALANINE AMINOTRANSFERASE 304 U/L (12-78); ALBUMIN 1.7 G/DL (3.4-5.0); ALBUMIN/GLOBULIN RATIO 0.3 (1.1-1.5); ALKALINE PHOSPHATASE 151 IU/L (46-116); ANION GAP 17 (8-16); ASPARTATE AMINO TRANSFERASE 392 U/L (10-37); BILIRUBIN,TOTAL 0.4 MG/DL (0.1-1.0); BLOOD UREA NITROGEN 51 MG/DL (7-18); BUN/CREATININE RATIO 22.8 (6.6-38.0); CALCIUM 8.2 MG/DL (8.5-10.1); CHLORIDE 105 MMOL/L (99-107); CREATININE 2.24 MG/DL (0.40-0.90); GLUCOSE 310 MG/DL (70-104); MAGNESIUM 2.1 MG/DL (1.5-2.4); PHOSPHORUS 6.6 MG/DL (2.3-4.5); POTASSIUM 5.2 MMOL/L (3.5-5.1); SODIUM 143 MMOL/L (135-145); TOTAL CARBON DIOXIDE 21.2 MMOL/L (24-32); eGFR 22 ML/MIN
--- NOTE | 2019-04-10 07:08 | NUR ---
Problems reprioritized. Patient report given, questions answered & plan of care reviewed with CHIVO. Addendum: 04/10/19 at 0709 by Bigg Rob RN Amended: Links added.
[2019-04-10] MEDS: multivitamins, therapeutics tablet PO SCH ×2 (08:00→09:12)
[2019-04-10] MEDS: POTASSIUM BICARB 20meq eff tab 20 MEQ TABLET.EFF OGT SCH ×2 (08:00→20:00)
[2019-04-10] MEDS: pantoprazole 40 MG vial IV SCH (09:06)
[2019-04-10] MEDS: furosemide 40mg/4ml inj IV SCH ×2 (09:07→19:48)
[2019-04-10] MEDS: HYDROchlorothiazide 25mg tablet CORPAK SCH (09:07)
[2019-04-10] MEDS: heparin, porcine 5000 units/ml vial SQ SCH ×2 (09:11→19:49)
[2019-04-10] MEDS: MULTIVIT-MIN/FERROUS GLUCONATE 9 MG/15 ML LIQUID CORPAK SCH (09:12)
[2019-04-10] MEDS: loratadine 10mg tablet CORPAK SCH (09:13)
[2019-04-10] MEDS: atorvastatin 20mg tablet CORPAK SCH (09:14)
[2019-04-10] MEDS: montelukast 10mg tablet CORPAK SCH (09:15)
[2019-04-10] MEDS: budesonide 0.5mg/2ml UD nebule IH SCH ×2 (09:15→20:00)
[2019-04-10] MEDS: levoTHYROXINE 75mcg tablet CORPAK SCH (09:15)
[2019-04-10] MEDS: lactobacillus rhamnosus 10,000 MMU CELLS/CAPSULE CORPAK SCH ×2 (09:16→19:48)
[2019-04-10] MEDS: lisinopril 10 MG tablet CORPAK SCH (09:17)
[2019-04-10] MEDS: allopurinol 100mg tablet CORPAK SCH (09:17)
[2019-04-10] MEDS: fluticasone nasal spray 16GM bottle NS SCH (09:19)
[2019-04-10] MEDS: calcium carbonate/vitamin D3 tablet CORPAK SCH (09:22)
[2019-04-10] MEDS: nystatin 15 GM powder TP SCH ×3 (10:37→21:00)
[2019-04-10] MEDS: Dakins solution (1/4 strength) 473ml solution TP SCH ×2 (10:38→19:49)
[2019-04-10 12:15] LABS: ABG BASE EXCESS -4.3 mmol/L (-2.0-3.0); ABG HCO3 18.7 mmol/L (22.0-26.0); ABG OXYGEN SATURATION 86.9 % (95-98); ABG PCO2 (T) 28.4 mmHg (35.0-45.0); ABG PH (T) 7.437 (7.350-7.450); ABG PO2 (T) 54.2 mmHg (83-108); ALLEN'S TEST Positive; FCOHb 0.1 % (0.5-1.5); FMetHb 0.3 % (0.3-1.12); FO2Hb 86.6 % (94-100); PEEP 10 cm H2O; RESPIRATORY RATE (OBSERVED) 28 b/min; TOTAL HEMOGLOBIN 11.9 G/dl (12.0-16.0)
--- NOTE | 2019-04-10 12:39 | NUR ---
Dr Trent notified of 02 saturation changes. RT felt that blood gas was needed. Dr Trent arrived to floor, ABG shows that pt could benefit from our bi-pap/cpap. Dr Trent agrees to pt going to ICU if room available. RT director verified for Dr Trent that room is available. Noris from ICU waiting for a nurse to be able to take pt. RT putting pt on our machine awaiting for transfer. PT breathing, urinary output, GFR, LFT's have had recent changes.
[2019-04-10] MEDS: sodium chloride 0.45% 1,000 ML IV SCH (12:51)
--- NOTE | 2019-04-10 14:21 | NUR ---
INSULIN VERIFIED BY BRADLEY Glynn RN, WITH STUDENT AND CHIVO JENKINS RN
[2019-04-10] MEDS: HYDROcodone/acetaminophen 7.5MG/325MG per 15ml UD CUP CORPAK PRN (14:27)
--- NOTE | 2019-04-10 14:27 | NUR ---
insulin verified by nani rn and gracy rn with student nurse nelson.
--- NOTE | 2019-04-10 15:12 | NUR ---
Report and transfer information given to Carmine Clement. Patient has been tranfered to ICU. RT there to put patient on machine. All questions answered, ICU nurse has taken over care.
[2019-04-10] MEDS: ipratropium/albuterol 3ml nebule NEB PRN (16:57)
--- NOTE | 2019-04-10 18:25 | NUR ---
Patient in room ICU 2041. I have received report from Carmine STONE and had the opportunity to ask questions and assume patient care. Patient resting in bed, currently on BiPAP with oxygen saturation at 94% on 35% FIO2. Patient drowsy but wakes up easily to verbal and tactile stimulus, follows commands. Will continue to monitor patient closely.
[2019-04-10] MEDS: insulin glargine (Lantus) pen - multi-dose SQ SCH (20:17)
[2019-04-11] VITALS (24 sets, daily range): BP systolic 116–170; BP diastolic 61–94
[2019-04-11] MEDS: diltiazem 30mg tablet PO SCH ×4 (01:53→19:53)
[2019-04-11] MEDS: methylPREDNISolone sod succ 125mg/2ml vial IV SCH ×4 (01:53→19:53)
[2019-04-11] MEDS: insulin regular, human vial - multi-dose SQ SCH ×4 (01:59→20:03)
[2019-04-11] MEDS: ipratropium/albuterol 3ml nebule NEB SCH ×4 (03:18→20:56)
--- NOTE | 2019-04-11 04:53 | NUR ---
Patient has been saturating at 99-100% all night. Patient agreeable to switching to nasal cannula. Patient placed on 4L NC, will continue to monitor patient closely.
[2019-04-11 05:30] LABS: ALBUMIN 1.6 G/DL (3.4-5.0); ANION GAP 14 (8-16); BLOOD UREA NITROGEN 68 MG/DL (7-18); BUN/CREATININE RATIO 26.9 (6.6-38.0); CALCIUM 8.8 MG/DL (8.5-10.1); CHLORIDE 107 MMOL/L (99-107); CREATININE 2.53 MG/DL (0.40-0.90); GLUCOSE 283 MG/DL (70-104); POTASSIUM 3.6 MMOL/L (3.5-5.1); SODIUM 143 MMOL/L (135-145); TOTAL CARBON DIOXIDE 21.9 MMOL/L (24-32); eGFR 19 ML/MIN
[2019-04-11 05:37] LABS: BASOPHILS % (AUTO) 0.2 % (0-1); EOSINOPHILS % (AUTO) 0 % (0-6); HEMATOCRIT 30.4 % (35.0-45.0); HEMOGLOBIN 10.1 g/dl (12.0-16.0); LYMPHOCYTES # (AUTO) 0.6 X10'3 (1.1-4.8); LYMPHOCYTES % (AUTO) 7.1 % (21-51); MEAN CORPUSCULAR HEMOGLOBIN 31.3 PG (27.0-31.0); MEAN CORPUSCULAR HGB CONC 33.3 g/dL (33.0-36.5); MEAN CORPUSCULAR VOLUME 94.1 FL (78-98); MEAN PLATELET VOLUME 8.4 FL (7.4-10.4); MONOCYTES # (AUTO) 0.2 X10'3 (0-0.9); NEUTROPHILS # (AUTO) 8.2 X10'3 (1.8-7.7); NEUTROPHILS % (AUTO) 90.7 % (42-75); PLATELET COUNT 276 X10'3 (140-440); RED BLOOD COUNT 3.23 X10'6 (4.20-5.60); RED CELL DISTRIBUTION WIDTH 16.8 % (11.5-14.5); WHITE BLOOD COUNT 9.1 X10'3 (4.5-11.0)
--- NOTE | 2019-04-11 06:45 | NUR ---
Problems reprioritized. Patient report given, questions answered & plan of care reviewed with Reva STONE.
--- NOTE | 2019-04-11 06:52 | NUR ---
Patient in room ICU 2041. I have received report from Parker STONE and had the opportunity to ask questions and assume patient care.
[2019-04-11] MEDS: fluticasone nasal spray 16GM bottle NS SCH (08:00)
[2019-04-11] MEDS ORDERED: cefepime 2g/NS 100ml ADVANTAGE 100 ML IV SCH (08:00)
[2019-04-11] MEDS: Dakins solution (1/4 strength) 473ml solution TP SCH ×2 (08:00→20:00)
[2019-04-11] MEDS: POTASSIUM BICARB 20meq eff tab 20 MEQ TABLET.EFF OGT SCH ×2 (08:00→19:53)
[2019-04-11] MEDS: atorvastatin 20mg tablet CORPAK SCH (08:55)
[2019-04-11] MEDS: calcium carbonate/vitamin D3 tablet CORPAK SCH (08:55)
[2019-04-11] MEDS: pantoprazole 40 MG vial IV SCH (08:55)
[2019-04-11] MEDS: loratadine 10mg tablet CORPAK SCH (08:56)
[2019-04-11] MEDS: allopurinol 100mg tablet CORPAK SCH (08:56)
[2019-04-11] MEDS: lisinopril 10 MG tablet CORPAK SCH (08:56)
[2019-04-11] MEDS: heparin, porcine 5000 units/ml vial SQ SCH ×2 (08:57→19:54)
[2019-04-11] MEDS: montelukast 10mg tablet CORPAK SCH (08:58)
[2019-04-11] MEDS: levoTHYROXINE 75mcg tablet CORPAK SCH (08:58)
[2019-04-11] MEDS: furosemide 40mg/4ml inj IV SCH ×2 (08:58→19:53)
[2019-04-11] MEDS: lactobacillus rhamnosus 10,000 MMU CELLS/CAPSULE CORPAK SCH ×2 (08:58→19:53)
[2019-04-11] MEDS: HYDROchlorothiazide 25mg tablet CORPAK SCH (08:58)
[2019-04-11] MEDS: nystatin 15 GM powder TP SCH ×3 (08:59→20:04)
[2019-04-11] MEDS: MULTIVIT-MIN/FERROUS GLUCONATE 9 MG/15 ML LIQUID CORPAK SCH (09:03)
[2019-04-11] MEDS: budesonide 0.5mg/2ml UD nebule IH SCH ×2 (09:24→20:56)
[2019-04-11] MEDS: HYDROcodone/acetaminophen 7.5MG/325MG per 15ml UD CUP CORPAK PRN (09:57)
[2019-04-11] MEDS: scopolamine 1.5mg patch.TD72 TD SCH ×2 (11:04→14:14)
[2019-04-11] MEDS: levoFLOXACIN-Levaquin 250mg/D5 50 ML IV SCH (11:11)
[2019-04-11] MEDS: MEROPENEM 500MG/50ML-NS IVPB 50 ML IV SCH (14:59)
--- NOTE | 2019-04-11 18:35 | NUR ---
Patient in room ICU 2041. I have received report from Reva STONE and had the opportunity to ask questions and assume patient care. Patient resting in bed comfortably with eyes closed, in no apparent distress. Vitals all WNL, saturating at 92% on 4L NC. Will continue to monitor patient.
[2019-04-11] MEDS: insulin glargine (Lantus) pen - multi-dose SQ SCH (20:04)
[2019-04-12] VITALS (22 sets, daily range): BP systolic 114–188; BP diastolic 60–92
[2019-04-12] MEDS: diltiazem 30mg tablet PO SCH ×4 (02:19→20:31)
[2019-04-12] MEDS: methylPREDNISolone sod succ 125mg/2ml vial IV SCH ×4 (02:19→22:54)
[2019-04-12] MEDS: insulin regular, human vial - multi-dose SQ SCH ×4 (02:24→22:11)
[2019-04-12] MEDS: ipratropium/albuterol 3ml nebule NEB SCH ×4 (03:12→20:02)
[2019-04-12 05:36] LABS: BASOPHILS % (AUTO) 0.3 % (0-1); EOSINOPHILS % (AUTO) 0 % (0-6); HEMOGLOBIN 10.4 g/dl (12.0-16.0); LYMPHOCYTES # (AUTO) 0.5 X10'3 (1.1-4.8); MEAN CORPUSCULAR HEMOGLOBIN 31.1 PG (27.0-31.0); MEAN CORPUSCULAR HGB CONC 33.5 g/dL (33.0-36.5); MEAN PLATELET VOLUME 8.8 FL (7.4-10.4); MONOCYTES # (AUTO) 0.2 X10'3 (0-0.9); MONOCYTES % (AUTO) 1.9 % (2-12); NEUTROPHILS # (AUTO) 11.8 X10'3 (1.8-7.7); NEUTROPHILS % (AUTO) 93.8 % (42-75); PLATELET COUNT 377 X10'3 (140-440); RED BLOOD COUNT 3.34 X10'6 (4.20-5.60); RED CELL DISTRIBUTION WIDTH 16.6 % (11.5-14.5); WHITE BLOOD COUNT 12.6 X10'3 (4.5-11.0)
[2019-04-12 05:43] LABS: ALBUMIN 1.7 G/DL (3.4-5.0); ANION GAP 15 (8-16); BLOOD UREA NITROGEN 76 MG/DL (7-18); BUN/CREATININE RATIO 29.7 (6.6-38.0); CHLORIDE 105 MMOL/L (99-107); CREATININE 2.56 MG/DL (0.40-0.90); GLUCOSE 244 MG/DL (70-104); POTASSIUM 3.5 MMOL/L (3.5-5.1); SODIUM 142 MMOL/L (135-145); TOTAL CARBON DIOXIDE 22.1 MMOL/L (24-32); eGFR 19 ML/MIN
--- NOTE | 2019-04-12 06:26 | NUR ---
Problems reprioritized. Patient report given, questions answered & plan of care reviewed with Reva STONE.
--- NOTE | 2019-04-12 06:30 | NUR ---
RECEIVED REPORT ON THIS PATIENT
[2019-04-12] MEDS: HYDROcodone/acetaminophen 7.5MG/325MG per 15ml UD CUP CORPAK PRN (06:53)
[2019-04-12] MEDS: MULTIVIT-MIN/FERROUS GLUCONATE 9 MG/15 ML LIQUID CORPAK SCH (07:54)
[2019-04-12] MEDS: levoFLOXACIN-Levaquin 250mg/D5 50 ML IV SCH (07:54)
[2019-04-12] MEDS: MEROPENEM 500MG/50ML-NS IVPB 50 ML IV SCH (07:54)
[2019-04-12] MEDS: levoTHYROXINE 75mcg tablet CORPAK SCH (07:55)
[2019-04-12] MEDS: POTASSIUM BICARB 20meq eff tab 20 MEQ TABLET.EFF OGT SCH ×2 (07:55→20:30)
[2019-04-12] MEDS: atorvastatin 20mg tablet CORPAK SCH (07:55)
[2019-04-12] MEDS: lactobacillus rhamnosus 10,000 MMU CELLS/CAPSULE CORPAK SCH ×2 (07:55→20:30)
[2019-04-12] MEDS: allopurinol 100mg tablet CORPAK SCH (07:55)
[2019-04-12] MEDS: loratadine 10mg tablet CORPAK SCH (07:55)
[2019-04-12] MEDS: HYDROchlorothiazide 25mg tablet CORPAK SCH (07:55)
[2019-04-12] MEDS: montelukast 10mg tablet CORPAK SCH (07:55)
[2019-04-12] MEDS: calcium carbonate/vitamin D3 tablet CORPAK SCH (07:55)
[2019-04-12] MEDS: heparin, porcine 5000 units/ml vial SQ SCH ×2 (07:56→20:31)
[2019-04-12] MEDS: lisinopril 10 MG tablet CORPAK SCH (07:56)
[2019-04-12] MEDS: furosemide 40mg/4ml inj IV SCH (07:56)
[2019-04-12] MEDS: pantoprazole 40 MG vial IV SCH (07:56)
[2019-04-12] MEDS: scopolamine 1.5mg patch.TD72 TD SCH (07:57)
[2019-04-12] MEDS: fluticasone nasal spray 16GM bottle NS SCH (07:57)
[2019-04-12] MEDS: Dakins solution (1/4 strength) 473ml solution TP SCH ×2 (08:00→20:00)
[2019-04-12] MEDS: budesonide 0.5mg/2ml UD nebule IH SCH ×2 (08:50→20:02)
--- NOTE | 2019-04-12 09:00 | NUR ---
MADE DR SLATER AWARE THAT I AM CONCERNED ABOUT THIS PATIENTS MENTATION CHANGES FROM YESTERDAY. SHE IS CONFUSED AND WITHDRAWN AND VERY SLOW TO RESPOND TO ME. HAS BEEN RESISTIVE TO CARE TODAY.
--- NOTE | 2019-04-12 10:44 | NUR ---
PATIENT REFUSES TURNING AND REFUSES PT, NOT INVOLVED WITH CARE, APPEARS VERY WITHDRAWN AND CONFUSED. Addendum: 04/12/19 at 1045 by Reva Sierra RN dR Venegas AWARE OF LACK OF PROGRESS WITH THIS PATIENT
[2019-04-12] MEDS: sodium chloride 0.45% 1,000 ML IV SCH (11:25)
--- NOTE | 2019-04-12 12:00 | NUR ---
pATIENT REFUSING TURNING
--- NOTE | 2019-04-12 14:00 | NUR ---
EXPLAINED TO PATIENT THAT SHE HAS TO PUSH HERSELF TO GET BETTER AND THAT PT IS VERY IMPORTANT ALONG WITH MOVING HER IN BED TO PREVENT SKIN BREAKDOWN, PATIENT DOES NOT RESPOND TO ME AND FALLS BACK ASLEEP, MADE dR. SLATER AWARE OF MENTATION CHANGES AND TOLD HIM I AM VERY CONCERNED BECAUSE THIS IS A HUGE CHANGE FROM YESTERDAY, NO NEW ORDERS RECEIVED.
[2019-04-12] MEDS: nystatin 15 GM powder TP SCH (14:59)
--- NOTE | 2019-04-12 16:00 | NUR ---
PATIENT PUSHES AWAY HANDS WHEN REQUESTING TO TURN HER. PLACED PATIENT BACK ON THE BIPAP DUE TO CONCERNS OF WOB, MADE RT AWARE
[2019-04-12] MEDS: insulin glargine (Lantus) pen - multi-dose SQ SCH (22:09)
[2019-04-13] VITALS (24 sets, daily range): BP systolic 97–157; BP diastolic 62–94
--- NOTE | 2019-04-13 02:10 | NUR ---
MayN NOTIFIED PATIENT HAD TWO 7 BEAT RUNS VTACH, ONE AT 0204 AND 0206. STAT LABS ORDERED, NO ADDITIONAL ORDERS RECEIVED.RN WILL CONTINUE TO MONITOR PATIENT
[2019-04-13] MEDS: diltiazem 30mg tablet PO SCH ×4 (02:21→21:39)
[2019-04-13] MEDS: methylPREDNISolone sod succ 125mg/2ml vial IV SCH ×2 (02:21→08:13)
[2019-04-13] MEDS: ipratropium/albuterol 3ml nebule NEB SCH ×4 (02:45→20:22)
[2019-04-13] MEDS: insulin regular, human vial - multi-dose SQ SCH ×2 (02:53→21:53)
[2019-04-13 05:29] LABS: BASOPHILS % (AUTO) 0.1 % (0-1); EOSINOPHILS % (AUTO) 0 % (0-6); HEMATOCRIT 29.7 % (35.0-45.0); LYMPHOCYTES # (AUTO) 0.3 X10'3 (1.1-4.8); LYMPHOCYTES % (AUTO) 2.7 % (21-51); MEAN CORPUSCULAR HEMOGLOBIN 31.8 PG (27.0-31.0); MEAN CORPUSCULAR HGB CONC 33.6 g/dL (33.0-36.5); MEAN CORPUSCULAR VOLUME 94.6 FL (78-98); MEAN PLATELET VOLUME 8.9 FL (7.4-10.4); MONOCYTES # (AUTO) 0.2 X10'3 (0-0.9); MONOCYTES % (AUTO) 2.1 % (2-12); NEUTROPHILS # (AUTO) 9.8 X10'3 (1.8-7.7); NEUTROPHILS % (AUTO) 95.1 % (42-75); PLATELET COUNT 296 X10'3 (140-440); RED BLOOD COUNT 3.14 X10'6 (4.20-5.60); RED CELL DISTRIBUTION WIDTH 16.3 % (11.5-14.5); WHITE BLOOD COUNT 10.4 X10'3 (4.5-11.0)
[2019-04-13 05:31] LABS: ALANINE AMINOTRANSFERASE 351 U/L (12-78); ALBUMIN 1.8 G/DL (3.4-5.0); ALBUMIN/GLOBULIN RATIO 0.4 (1.1-1.5); ALKALINE PHOSPHATASE 271 IU/L (46-116); ANION GAP 16 (8-16); ASPARTATE AMINO TRANSFERASE 89 U/L (10-37); BILIRUBIN,TOTAL 0.5 MG/DL (0.1-1.0); BLOOD UREA NITROGEN 89 MG/DL (7-18); BUN/CREATININE RATIO 35.6 (6.6-38.0); CALCIUM 9.3 MG/DL (8.5-10.1); CHLORIDE 108 MMOL/L (99-107); GLUCOSE 242 MG/DL (70-104); MAGNESIUM 2.3 MG/DL (1.5-2.4); PHOSPHORUS 2.5 MG/DL (2.3-4.5); POTASSIUM 3.5 MMOL/L (3.5-5.1); PREALBUMIN 33.4 MG/DL (19-36); SODIUM 148 MMOL/L (135-145); TOTAL CARBON DIOXIDE 24.2 MMOL/L (24-32); TOTAL PROTEIN 6.6 G/DL (6.4-8.2); eGFR 19 ML/MIN
--- NOTE | 2019-04-13 06:30 | NUR ---
Patient in room ICU 2041. I have received report from Ibis STONE and had the opportunity to ask questions and assume patient care.
[2019-04-13] MEDS: fluticasone nasal spray 16GM bottle NS SCH (08:00)
[2019-04-13] MEDS: Dakins solution (1/4 strength) 473ml solution TP SCH (08:00)
[2019-04-13] MEDS: nystatin 15 GM powder TP SCH ×3 (08:12→13:00)
[2019-04-13] MEDS: pantoprazole 40 MG vial IV SCH (08:13)
[2019-04-13] MEDS: MEROPENEM 500MG/50ML-NS IVPB 50 ML IV SCH (08:34)
[2019-04-13] MEDS: heparin, porcine 5000 units/ml vial SQ SCH ×2 (08:42→21:38)
--- NOTE | 2019-04-13 13:43 | NUR ---
notified Dr Ruiz of communication between old ostomy site and open abdominal site. will continue to monitor.
--- NOTE | 2019-04-13 13:44 | NUR ---
Dr. Trent notified about corpak placement. okay to initiate tube feeding.
--- NOTE | 2019-04-13 14:00 | NUR ---
Reassessment: Patient pulled out corpak this morning, was replaced and now pending confirmation of placement. Noted that sodium is elevated at 148, if does not improve after water flushes are resumed consider additional water flush to meet fluid needs. BSS performed today by , reports pt with multiple swallow attempt, coughing after swallowing, recommends NPO and reassess with alternative nutrition. Recommend to continue tube feedings, resume at goal when corpak placed and confirmed. Pt s/p respiratory distress w/ mild hypoxemia and wants only bipap no re-intubation per MD note. Colostomy with adequate output, 400 ml stool out 04/12. Will follow. Recommend: 1. NGTF per MD via corpak using Glucerna 1.2 at 75ml/hr goal; to provide 1800ml fluid, 2160kcals, 1458ml free water, and 108g protein. Initiate at 20ml/hr and advance 20ml Q8 to goal as tolerated. 2. water flush 200ml Q4 3. PALB Q /; daily wts 4. monitor colostomy output and need for anti-diarrheal 5. Keep NPO per , advance diet per recs, until then provide tube feeding to meet needs 6. Colostomy education when patient is no longer confused Addendum: 04/13/19 at [address] Amended: Links added.
[2019-04-13] MEDS: montelukast 10mg tablet CORPAK SCH (15:50)
[2019-04-13] MEDS: loratadine 10mg tablet CORPAK SCH (15:50)
[2019-04-13] MEDS: levoTHYROXINE 75mcg tablet CORPAK SCH (15:50)
[2019-04-13] MEDS: lisinopril 10 MG tablet CORPAK SCH (15:50)
[2019-04-13] MEDS: calcium carbonate/vitamin D3 tablet CORPAK SCH (15:50)
[2019-04-13] MEDS: HYDROchlorothiazide 25mg tablet CORPAK SCH (15:50)
[2019-04-13] MEDS: atorvastatin 20mg tablet CORPAK SCH (15:50)
[2019-04-13] MEDS: POTASSIUM BICARB 20meq eff tab 20 MEQ TABLET.EFF OGT SCH ×2 (15:50→21:39)
[2019-04-13] MEDS: allopurinol 100mg tablet CORPAK SCH (15:50)
[2019-04-13] MEDS: lactobacillus rhamnosus 10,000 MMU CELLS/CAPSULE CORPAK SCH ×2 (15:50→21:43)
[2019-04-13] MEDS: MULTIVIT-MIN/FERROUS GLUCONATE 9 MG/15 ML LIQUID CORPAK SCH (15:50)
--- NOTE | 2019-04-13 15:52 | NUR ---
tube feeding restarted at 75cc and hour per MD orders. will continue to monitor
--- NOTE | 2019-04-13 17:19 | NUR ---
pt pulled out corpak part way, stopped tube feed. reinserted and new KUB ordered for verification of placement.
--- NOTE | 2019-04-13 18:39 | NUR ---
Problems reprioritized. Patient report given, questions answered & plan of care reviewed with Ibis STONE.
[2019-04-13] MEDS ORDERED: methylPREDNISolone sod succ 125mg/2ml vial IV SCH (20:00)
[2019-04-13] MEDS: budesonide 0.5mg/2ml UD nebule IH SCH ×2 (20:22→20:23)
[2019-04-13] MEDS: insulin glargine (Lantus) pen - multi-dose SQ SCH (21:49)
[2019-04-14] VITALS (24 sets, daily range): BP systolic 116–162; BP diastolic 54–77
[2019-04-14] MEDS: nystatin 15 GM powder TP SCH ×4 (00:30→20:28)
[2019-04-14] MEDS: diltiazem 30mg tablet PO SCH ×4 (02:13→20:28)
[2019-04-14] MEDS: ipratropium/albuterol 3ml nebule NEB SCH ×4 (02:14→20:05)
[2019-04-14] MEDS: insulin regular, human vial - multi-dose SQ SCH ×4 (02:23→20:37)
[2019-04-14] MEDS: Dakins solution (1/4 strength) 473ml solution TP SCH ×2 (04:00→14:09)
--- NOTE | 2019-04-14 06:12 | NUR ---
Problems reprioritized. Patient report given, questions answered & plan of care reviewed with Perfecto STONE.
[2019-04-14 06:17] LABS: ANION GAP 12 (8-16); BLOOD UREA NITROGEN 92 MG/DL (7-18); BUN/CREATININE RATIO 40.2 (6.6-38.0); CALCIUM 9.8 MG/DL (8.5-10.1); CHLORIDE 110 MMOL/L (99-107); CREATININE 2.29 MG/DL (0.40-0.90); GLUCOSE 183 MG/DL (70-104); POTASSIUM 3.8 MMOL/L (3.5-5.1); SODIUM 148 MMOL/L (135-145); TOTAL CARBON DIOXIDE 25.9 MMOL/L (24-32); eGFR 21 ML/MIN
[2019-04-14 06:24] LABS: BASOPHILS % (AUTO) 0.1 % (0-1); EOSINOPHILS % (AUTO) 0 % (0-6); HEMATOCRIT 30.9 % (35.0-45.0); HEMOGLOBIN 10.3 g/dl (12.0-16.0); LYMPHOCYTES # (AUTO) 0.4 X10'3 (1.1-4.8); LYMPHOCYTES % (AUTO) 3.2 % (21-51); MEAN CORPUSCULAR HEMOGLOBIN 31.1 PG (27.0-31.0); MEAN CORPUSCULAR HGB CONC 33.2 g/dL (33.0-36.5); MEAN CORPUSCULAR VOLUME 93.5 FL (78-98); MEAN PLATELET VOLUME 9.2 FL (7.4-10.4); MONOCYTES # (AUTO) 0.7 X10'3 (0-0.9); MONOCYTES % (AUTO) 4.8 % (2-12); NEUTROPHILS # (AUTO) 12.8 X10'3 (1.8-7.7); NEUTROPHILS % (AUTO) 91.9 % (42-75); PLATELET COUNT 354 X10'3 (140-440); RED BLOOD COUNT 3.31 X10'6 (4.20-5.60); RED CELL DISTRIBUTION WIDTH 16.5 % (11.5-14.5); WHITE BLOOD COUNT 13.9 X10'3 (4.5-11.0)
--- NOTE | 2019-04-14 06:34 | NUR ---
Patient in room ICU 2041. I have received report from Ibis STONE and had the opportunity to ask questions and assume patient care.
[2019-04-14] MEDS: allopurinol 100mg tablet CORPAK SCH (08:00)
[2019-04-14] MEDS: loratadine 10mg tablet CORPAK SCH (08:00)
[2019-04-14] MEDS: calcium carbonate/vitamin D3 tablet CORPAK SCH (08:00)
[2019-04-14] MEDS: lisinopril 10 MG tablet CORPAK SCH (08:00)
[2019-04-14] MEDS: HYDROchlorothiazide 25mg tablet CORPAK SCH (08:00)
[2019-04-14] MEDS: atorvastatin 20mg tablet CORPAK SCH (08:00)
[2019-04-14] MEDS: fluticasone nasal spray 16GM bottle NS SCH (08:00)
[2019-04-14] MEDS: lactobacillus rhamnosus 10,000 MMU CELLS/CAPSULE CORPAK SCH ×2 (08:00→20:28)
[2019-04-14] MEDS: montelukast 10mg tablet CORPAK SCH (08:00)
[2019-04-14] MEDS: levoTHYROXINE 75mcg tablet CORPAK SCH (08:00)
[2019-04-14] MEDS: budesonide 0.5mg/2ml UD nebule IH SCH ×2 (08:17→20:06)
[2019-04-14] MEDS: POTASSIUM BICARB 20meq eff tab 20 MEQ TABLET.EFF OGT SCH ×2 (09:31→20:28)
[2019-04-14] MEDS: levoFLOXACIN-Levaquin 250mg/D5 50 ML IV SCH (09:31)
[2019-04-14] MEDS: pantoprazole 40 MG vial IV SCH (09:31)
[2019-04-14] MEDS: heparin, porcine 5000 units/ml vial SQ SCH ×2 (09:41→20:33)
[2019-04-14] MEDS: sodium chloride 0.45% 1,000 ML IV SCH ×2 (11:25→16:57)
[2019-04-14] MEDS: MULTIVIT-MIN/FERROUS GLUCONATE 9 MG/15 ML LIQUID CORPAK SCH (11:35)
[2019-04-14] MEDS: scopolamine 1.5mg patch.TD72 TD SCH (11:40)
--- NOTE | 2019-04-14 12:27 | NUR ---
Reassessment: Pt tolerating NGTF at goal. Colostomy output 850ml down from 1100ml previous. Pt is depressed and most of the time does not work w/ PT per MD. Given on NGTF and depression pt not appropriate for colostomy diet ed at this time; deferred until more appropriate. Pending cardiology input given hypokinesis per MD note. Will continue to monitor. Recommend: 1. NGTF per MD via corpak using Glucerna 1.2at 75ml/hr goal; to provide 1800ml fluid, 2160kcals, 1458ml free water, and 108g protein. 2. water flush 200ml Q4 3. PALB Q /; daily wts 4. monitor colostomy output; consider anti-diarrheal per MD approval 5. Keep NPO per , advance diet per [facility], until then provide tube feeding to meet needs 6. Colostomy education when patient is more appropriate prior to d/c Addendum: 04/14/19 at [address] Amended: Links added.
--- NOTE | 2019-04-14 12:34 | NUR ---
Talked to Dr. De Guzman briefly on the telephone; notified him of patient having t wave inversions, Afib and recen echo. MD asked about medications for Afib as well as patient's code status. no new orders received. will continue to monitor.
--- NOTE | 2019-04-14 13:30 | NUR ---
provided oral care with clorhexadine oral duncan'n. pt tolerated well. will continue to monitor
--- NOTE | 2019-04-14 18:35 | NUR ---
Problems reprioritized. Patient report given, questions answered & plan of care reviewed with Sugar STONE.
--- NOTE | 2019-04-14 18:37 | NUR ---
Patient in room ICU 2041. I have received report from BERTHA Aguiar and had the opportunity to ask questions and assume patient care.
--- NOTE | 2019-04-14 18:45 | NUR ---
Problems reprioritized. Patient report given, questions answered & plan of care reviewed with Rupert STONE.
[2019-04-14] MEDS: insulin glargine (Lantus) pen - multi-dose SQ SCH (20:38)
[2019-04-15] VITALS (15 sets, daily range): BP systolic 127–166; BP diastolic 64–90
[2019-04-15] MEDS: Dakins solution (1/4 strength) 473ml solution TP SCH ×3 (01:04→23:40)
[2019-04-15] MEDS: ipratropium/albuterol 3ml nebule NEB SCH ×4 (02:09→20:02)
[2019-04-15] MEDS: insulin regular, human vial - multi-dose SQ SCH ×4 (02:19→20:58)
[2019-04-15] MEDS: diltiazem 30mg tablet PO SCH ×4 (02:20→20:45)
[2019-04-15 05:30] LABS: BASOPHILS % (AUTO) 0.2 % (0-1); EOSINOPHILS % (AUTO) 0.1 % (0-6); HEMATOCRIT 30.1 % (35.0-45.0); LYMPHOCYTES # (AUTO) 0.9 X10'3 (1.1-4.8); LYMPHOCYTES % (AUTO) 5.6 % (21-51); MEAN CORPUSCULAR HEMOGLOBIN 31.3 PG (27.0-31.0); MEAN CORPUSCULAR HGB CONC 33.2 g/dL (33.0-36.5); MEAN CORPUSCULAR VOLUME 94.2 FL (78-98); MEAN PLATELET VOLUME 9.1 FL (7.4-10.4); MONOCYTES % (AUTO) 6.5 % (2-12); NEUTROPHILS # (AUTO) 13.6 X10'3 (1.8-7.7); NEUTROPHILS % (AUTO) 87.6 % (42-75); PLATELET COUNT 321 X10'3 (140-440); RED BLOOD COUNT 3.19 X10'6 (4.20-5.60); RED CELL DISTRIBUTION WIDTH 16.7 % (11.5-14.5); WHITE BLOOD COUNT 15.5 X10'3 (4.5-11.0)
[2019-04-15 05:43] LABS: ANION GAP 7 (8-16); BLOOD UREA NITROGEN 90 MG/DL (7-18); BUN/CREATININE RATIO 46.9 (6.6-38.0); CALCIUM 9.4 MG/DL (8.5-10.1); CHLORIDE 110 MMOL/L (99-107); CREATININE 1.92 MG/DL (0.40-0.90); GLUCOSE 142 MG/DL (70-104); POTASSIUM 4.3 MMOL/L (3.5-5.1); SODIUM 146 MMOL/L (135-145); TOTAL CARBON DIOXIDE 28.6 MMOL/L (24-32); eGFR 26 ML/MIN
--- NOTE | 2019-04-15 06:00 | NUR ---
Problems reprioritized. Patient report given, questions answered & plan of care reviewed with Belem STONE. Addendum: 04/15/19 at 2015 by Amy Yi RN Correction: time of report was 1800.
--- NOTE | 2019-04-15 06:59 | NUR ---
Patient in room ICU 2041. I have received report from Sugar and had the opportunity to ask questions and assume patient care.
[2019-04-15] MEDS: nystatin 15 GM powder TP SCH ×3 (07:33→21:24)
[2019-04-15] MEDS: lactobacillus rhamnosus 10,000 MMU CELLS/CAPSULE CORPAK SCH ×2 (07:34→20:45)
[2019-04-15] MEDS: atorvastatin 20mg tablet CORPAK SCH (07:34)
[2019-04-15] MEDS: calcium carbonate/vitamin D3 tablet CORPAK SCH (07:34)
[2019-04-15] MEDS: pantoprazole 40 MG vial IV SCH (07:34)
[2019-04-15] MEDS: loratadine 10mg tablet CORPAK SCH (07:35)
[2019-04-15] MEDS: heparin, porcine 5000 units/ml vial SQ SCH ×2 (07:35→20:46)
[2019-04-15] MEDS: levoTHYROXINE 75mcg tablet CORPAK SCH (07:35)
[2019-04-15] MEDS: HYDROchlorothiazide 25mg tablet CORPAK SCH (07:35)
[2019-04-15] MEDS: montelukast 10mg tablet CORPAK SCH (07:35)
[2019-04-15] MEDS: fluticasone nasal spray 16GM bottle NS SCH (07:36)
[2019-04-15] MEDS: POTASSIUM BICARB 20meq eff tab 20 MEQ TABLET.EFF OGT SCH ×2 (07:36→20:45)
[2019-04-15] MEDS: lisinopril 10 MG tablet CORPAK SCH (07:36)
[2019-04-15] MEDS: allopurinol 100mg tablet CORPAK SCH (07:36)
[2019-04-15] MEDS: budesonide 0.5mg/2ml UD nebule IH SCH ×2 (07:38→20:02)
[2019-04-15] MEDS ORDERED: methylPREDNISolone sod succ/PF 40mg inj. IV SCH (08:00)
[2019-04-15] MEDS: MULTIVIT-MIN/FERROUS GLUCONATE 9 MG/15 ML LIQUID CORPAK SCH (10:00)
--- NOTE | 2019-04-15 10:23 | NUR ---
Problems reprioritized. Patient report given, questions answered & plan of care reviewed with George.
--- NOTE | 2019-04-15 14:33 | NUR ---
Problems reprioritized. Patient report given, questions answered & plan of care reviewed with BERTHA Fontaine.
--- NOTE | 2019-04-15 18:30 | NUR ---
Patient in room PCU 3010. I have received report from BERTHA Fontaine and had the opportunity to ask questions and assume patient care.
[2019-04-15] MEDS: insulin glargine (Lantus) pen - multi-dose SQ SCH (20:57)
[2019-04-16 02:00] VITALS: BP 132/78
[2019-04-16] MEDS: diltiazem 30mg tablet PO SCH ×4 (02:23→20:23)
[2019-04-16] MEDS: insulin regular, human vial - multi-dose SQ SCH ×3 (02:26→20:32)
[2019-04-16] MEDS: ipratropium/albuterol 3ml nebule NEB SCH ×4 (02:40→20:17)
--- NOTE | 2019-04-16 04:20 | NUR ---
Sitter in room alerted me that patient was coughing more than usual. Upon assessment, patient was found to have Corepak pulled almost completely out. Fer Reid informed me that the patient was recently turned and repositioned about 10 minutes prior to me being notified about her coughing fit. Corpak was potentially pulled out during repostioning/turning and was pulled away from the securement to her gown with safety pin/tape. Dr. Ojeda was notified of the incident and he ordered a chest XR. Per Dr. Ojeda, we are to wait until after getting XR results to get a new order for corepak placement.
[2019-04-16 04:30] VITALS: BP 175/63
[2019-04-16 05:24] LABS: ALBUMIN 2.1 G/DL (3.4-5.0); ANION GAP 8 (8-16); BLOOD UREA NITROGEN 86 MG/DL (7-18); BUN/CREATININE RATIO 46.7 (6.6-38.0); CALCIUM 9.4 MG/DL (8.5-10.1); CHLORIDE 109 MMOL/L (99-107); CREATININE 1.84 MG/DL (0.40-0.90); GLUCOSE 129 MG/DL (70-104); POTASSIUM 4.6 MMOL/L (3.5-5.1); SODIUM 145 MMOL/L (135-145); TOTAL CARBON DIOXIDE 28.2 MMOL/L (24-32); eGFR 27 ML/MIN
[2019-04-16 05:38] LABS: BASOPHILS % (AUTO) 0.1 % (0-1); EOSINOPHILS # (AUTO) 0.1 X10'3 (0-0.9); EOSINOPHILS % (AUTO) 0.5 % (0-6); HEMATOCRIT 31.1 % (35.0-45.0); HEMOGLOBIN 10.2 g/dl (12.0-16.0); LYMPHOCYTES # (AUTO) 0.7 X10'3 (1.1-4.8); LYMPHOCYTES % (AUTO) 4.3 % (21-51); MEAN CORPUSCULAR HEMOGLOBIN 31.3 PG (27.0-31.0); MEAN CORPUSCULAR HGB CONC 32.6 g/dL (33.0-36.5); MEAN CORPUSCULAR VOLUME 95.9 FL (78-98); MEAN PLATELET VOLUME 9.7 FL (7.4-10.4); MONOCYTES % (AUTO) 6.6 % (2-12); NEUTROPHILS # (AUTO) 13.6 X10'3 (1.8-7.7); NEUTROPHILS % (AUTO) 88.5 % (42-75); PLATELET COUNT 353 X10'3 (140-440); RED BLOOD COUNT 3.25 X10'6 (4.20-5.60); RED CELL DISTRIBUTION WIDTH 17.1 % (11.5-14.5); WHITE BLOOD COUNT 15.4 X10'3 (4.5-11.0)
--- NOTE | 2019-04-16 05:50 | NUR ---
Spoke to Dr. Ojeda about concern for patients BS to drop due to receiving humulin around 0230 and her corepak being pulled out around 0430. He said to monitor BS, no need to put her on IV dextrose unless she needs it. Dr. Ojeda looked at her chest XRAY and said we could reinsert her corepak to continue her tube feeding.
[2019-04-16 06:00] VITALS: BP 132/74
--- NOTE | 2019-04-16 06:29 | NUR ---
Problems reprioritized. Patient report given, questions answered & plan of care reviewed with BERTHA Fontaine.
--- NOTE | 2019-04-16 06:59 | NUR ---
FBS 75; informed Lynette [employer]. Received order to run D10 @ 30ml/hr until able to obtain corpak insertion and restart tube feeding; then DC D10.
[2019-04-16] MEDS ORDERED: Dextrose 10%-water IV solution 1,000 ML IV SCH (07:00)
[2019-04-16 07:20] LABS: NUCLEATED RED BLOOD CELLS 1 /100WBC (0-0); PLATELET ESTIMATE NORMAL; POLYCHROMASIA 1+; TOTAL CELLS COUNTED 100; TOXIC GRANULATION 1+
[2019-04-16 07:21] LABS: ANISOCYTOSIS 1+
[2019-04-16] MEDS: budesonide 0.5mg/2ml UD nebule IH SCH ×2 (07:31→20:17)
[2019-04-16] MEDS: montelukast 10mg tablet CORPAK SCH (08:00)
[2019-04-16] MEDS: lactobacillus rhamnosus 10,000 MMU CELLS/CAPSULE CORPAK SCH ×2 (08:00→20:23)
[2019-04-16] MEDS: atorvastatin 20mg tablet CORPAK SCH (08:00)
[2019-04-16] MEDS: nystatin 15 GM powder TP SCH ×3 (08:00→20:23)
[2019-04-16] MEDS: levoTHYROXINE 75mcg tablet CORPAK SCH (08:00)
[2019-04-16] MEDS: lisinopril 10 MG tablet CORPAK SCH (08:00)
[2019-04-16] MEDS: loratadine 10mg tablet CORPAK SCH (08:00)
[2019-04-16] MEDS: Dakins solution (1/4 strength) 473ml solution TP SCH ×2 (08:00→20:00)
[2019-04-16] MEDS: POTASSIUM BICARB 20meq eff tab 20 MEQ TABLET.EFF OGT SCH ×2 (08:00→20:00)
[2019-04-16] MEDS: fluticasone nasal spray 16GM bottle NS SCH (08:00)
[2019-04-16] MEDS: allopurinol 100mg tablet CORPAK SCH (08:00)
[2019-04-16] MEDS: HYDROchlorothiazide 25mg tablet CORPAK SCH (08:00)
[2019-04-16] MEDS: calcium carbonate/vitamin D3 tablet CORPAK SCH (08:00)
[2019-04-16] MEDS: levoFLOXACIN-Levaquin 250mg/D5 50 ML IV SCH (08:09)
[2019-04-16] MEDS: pantoprazole 40 MG vial IV SCH (08:09)
[2019-04-16] MEDS: heparin, porcine 5000 units/ml vial SQ SCH ×2 (08:10→20:22)
[2019-04-16] MEDS: MULTIVIT-MIN/FERROUS GLUCONATE 9 MG/15 ML LIQUID CORPAK SCH (10:00)
--- NOTE | 2019-04-16 10:07 | NUR ---
IV and SQ meds given. Medications given through corpak held until corpak inserted and placement confirmed. Hilton aware. Received orders for KUB to check placement. Last blood sugar check was 73. Enrique STONE attempted new IV start x2. Picc nurse paged. D10 restarted after IV Abx infused.
[2019-04-16 11:00] VITALS: BP 149/83
[2019-04-16] MEDS: sodium chloride 0.45% 1,000 ML IV SCH (11:25)
--- NOTE | 2019-04-16 14:49 | NUR ---
Hilton ALBRIGHT contacted to confirm if ok to run tube feed based on KUB done at 1400. Received OK to run and orders to DC D10 @ 40ml/hr. Addendum: 04/16/19 at 1506 by Amy Yi RN Start tube feed @ 40ml/hr and advance towards 75ml/hr goal as tolerated.
[2019-04-16 15:00] VITALS: BP 149/70
--- NOTE | 2019-04-16 18:11 | NUR ---
Problems reprioritized. Patient report given, questions answered & plan of care reviewed with Massiel STONE.
--- NOTE | 2019-04-16 18:15 | NUR ---
Patient in room PCU 3010. I have received report from Minal STONE and had the opportunity to ask questions and assume patient care. All patient's needs met at this time.
--- NOTE | 2019-04-16 20:30 | NUR ---
I asked the patient if I could change her abdominal dressing, she didn't want me to change it at this time. She wanted to be left alone because she was comfortable. I didn't want to wake her up in the middle of the night to change it, the dressing wasn't soiled badly. I will inform the day shift nurse of this.
[2019-04-16] MEDS: insulin glargine (Lantus) pen - multi-dose SQ SCH (21:00)
[2019-04-16 22:00] VITALS: BP 150/67
[2019-04-17 02:00] VITALS: BP 162/85
[2019-04-17] MEDS: ipratropium/albuterol 3ml nebule NEB SCH ×3 (02:39→15:05)
--- NOTE | 2019-04-17 02:55 | NUR ---
After providing patient care throughout the night, and looking through the eMAR, I noticed that this patient's Lantus was over seen. It was already passed the window of being able to administer it correctly, so I had to non admin it. I will let the day shift nurse know at shift change.
[2019-04-17] MEDS: diltiazem 30mg tablet PO SCH ×3 (03:22→13:44)
[2019-04-17 05:24] LABS: BASOPHILS % (AUTO) 0.1 % (0-1); EOSINOPHILS # (AUTO) 0.3 X10'3 (0-0.9); EOSINOPHILS % (AUTO) 2.9 % (0-6); HEMOGLOBIN 9.9 g/dl (12.0-16.0); LYMPHOCYTES # (AUTO) 0.8 X10'3 (1.1-4.8); LYMPHOCYTES % (AUTO) 6.5 % (21-51); MEAN CORPUSCULAR HEMOGLOBIN 31.5 PG (27.0-31.0); MEAN CORPUSCULAR HGB CONC 33.1 g/dL (33.0-36.5); MEAN CORPUSCULAR VOLUME 95.4 FL (78-98); MEAN PLATELET VOLUME 9.6 FL (7.4-10.4); MONOCYTES # (AUTO) 0.4 X10'3 (0-0.9); MONOCYTES % (AUTO) 3.7 % (2-12); NEUTROPHILS # (AUTO) 10.3 X10'3 (1.8-7.7); NEUTROPHILS % (AUTO) 86.8 % (42-75); PLATELET COUNT 283 X10'3 (140-440); RED BLOOD COUNT 3.15 X10'6 (4.20-5.60); RED CELL DISTRIBUTION WIDTH 17.7 % (11.5-14.5); WHITE BLOOD COUNT 11.9 X10'3 (4.5-11.0)
[2019-04-17 05:49] LABS: ALBUMIN 1.9 G/DL (3.4-5.0); ANION GAP 8 (8-16); BLOOD UREA NITROGEN 73 MG/DL (7-18); BUN/CREATININE RATIO 45.1 (6.6-38.0); CALCIUM 8.9 MG/DL (8.5-10.1); CHLORIDE 110 MMOL/L (99-107); CREATININE 1.62 MG/DL (0.40-0.90); GLUCOSE 187 MG/DL (70-104); POTASSIUM 4.3 MMOL/L (3.5-5.1); SODIUM 145 MMOL/L (135-145); TOTAL CARBON DIOXIDE 26.7 MMOL/L (24-32); eGFR 32 ML/MIN
--- NOTE | 2019-04-17 06:20 | NUR ---
Patient in room PCU 3010. I have received report from Massiel STONE and had the opportunity to ask questions and assume patient care.
--- NOTE | 2019-04-17 06:27 | NUR ---
Problems reprioritized. Patient report given, questions answered & plan of care reviewed with Margie STONE. All patient's needs met at this time.
[2019-04-17 06:30] VITALS: BP 154/73
[2019-04-17] MEDS: pantoprazole 40 MG vial IV SCH (08:13)
[2019-04-17] MEDS: nystatin 15 GM powder TP SCH ×2 (08:13→13:18)
[2019-04-17] MEDS: fluticasone nasal spray 16GM bottle NS SCH (08:13)
[2019-04-17] MEDS: heparin, porcine 5000 units/ml vial SQ SCH (08:14)
[2019-04-17] MEDS: loratadine 10mg tablet CORPAK SCH (08:15)
[2019-04-17] MEDS: POTASSIUM BICARB 20meq eff tab 20 MEQ TABLET.EFF OGT SCH (08:15)
[2019-04-17] MEDS: allopurinol 100mg tablet CORPAK SCH (08:15)
[2019-04-17] MEDS: montelukast 10mg tablet CORPAK SCH (08:16)
[2019-04-17] MEDS: lisinopril 10 MG tablet CORPAK SCH (08:16)
[2019-04-17] MEDS: calcium carbonate/vitamin D3 tablet CORPAK SCH (08:16)
[2019-04-17] MEDS: atorvastatin 20mg tablet CORPAK SCH (08:16)
[2019-04-17] MEDS: HYDROchlorothiazide 25mg tablet CORPAK SCH (08:17)
[2019-04-17] MEDS: lactobacillus rhamnosus 10,000 MMU CELLS/CAPSULE CORPAK SCH (08:17)
[2019-04-17] MEDS: levoTHYROXINE 75mcg tablet CORPAK SCH (08:17)
[2019-04-17] MEDS: insulin regular, human vial - multi-dose SQ SCH (08:48)
[2019-04-17] MEDS: budesonide 0.5mg/2ml UD nebule IH SCH (08:58)
--- NOTE | 2019-04-17 09:05 | NUR ---
Administered 14 units of insulin, per calculation to cover 256 blood sugar and glucerna 1.2 tube feed at 60/hr
[2019-04-17] MEDS: MULTIVIT-MIN/FERROUS GLUCONATE 9 MG/15 ML LIQUID CORPAK SCH (09:27)
[2019-04-17 11:00] VITALS: BP 151/75
[2019-04-17] MEDS: Dakins solution (1/4 strength) 473ml solution TP SCH (11:29)
[2019-04-17] MEDS: scopolamine 1.5mg patch.TD72 TD SCH (11:30)
[2019-04-17] MEDS ORDERED: Dextrose 10%-water IV solution 1,000 ML IV ONE (13:40)
--- NOTE | 2019-04-17 15:37 | NUR ---
Per MD, patient stable for discharge to [facility]. Report called to facility, spoke to Manisha STONE, at 1315. Wound care provided before discharge and discharge wound photos taken. Tele removed from patient and returned to telex operator. IV and forrest catheter left in for [facility]. Spouse notified by case management of patients transfer. [facility] transferred via [facility] to facility, accompanied by [facility] staff.
== END 2019-04-17 15:38 | DRG 329 ==
LOC: ER 11:45 → ED HOLD 18:32 → ORTHO 4S 20:34 → ICU 2S 03-22 19:19 → SUR 3N 04-07 15:47 → ICU 2S 04-10 14:45 → PCU 3S 04-15 10:48
PROVIDERS: ADMIT Family Medicine; ATTEND Internal Medicine Critical Care Medicine
PROC: 5A09357 Assistance with Respiratory Ventilation, Less than 24 Consecutive Hours, Continuous Positive Airway Pressure (ICD-10-PCS; principal; 2019-03-15)
PROC: 5A09357 Assistance with Respiratory Ventilation, Less than 24 Consecutive Hours, Continuous Positive Airway Pressure (ICD-10-PCS; 2019-03-17)
PROC: BW211ZZ Computerized Tomography (CT Scan) of Abdomen and Pelvis using Low Osmolar Contrast (ICD-10-PCS; 2019-03-17)
PROC: 0D9670Z Drainage of Stomach with Drainage Device, Via Natural or Artificial Opening (ICD-10-PCS; 2019-03-17)
PROC: 5A09357 Assistance with Respiratory Ventilation, Less than 24 Consecutive Hours, Continuous Positive Airway Pressure (ICD-10-PCS; 2019-03-18)
PROC: 0DJD8ZZ Inspection of Lower Intestinal Tract, Via Natural or Artificial Opening Endoscopic (ICD-10-PCS; 2019-03-18)
PROC: 5A09357 Assistance with Respiratory Ventilation, Less than 24 Consecutive Hours, Continuous Positive Airway Pressure (ICD-10-PCS; 2019-03-19)
PROC: 5A09357 Assistance with Respiratory Ventilation, Less than 24 Consecutive Hours, Continuous Positive Airway Pressure (ICD-10-PCS; 2019-03-20)
PROC: 5A09357 Assistance with Respiratory Ventilation, Less than 24 Consecutive Hours, Continuous Positive Airway Pressure (ICD-10-PCS; 2019-03-21)
PROC: 0T788DZ Dilation of Bilateral Ureters with Intraluminal Device, Via Natural or Artificial Opening Endoscopic (ICD-10-PCS; 2019-03-22)
PROC: BT141ZZ Fluoroscopy of Kidneys, Ureters and Bladder using Low Osmolar Contrast (ICD-10-PCS; 2019-03-22)
PROC: 5A09357 Assistance with Respiratory Ventilation, Less than 24 Consecutive Hours, Continuous Positive Airway Pressure (ICD-10-PCS; 2019-03-22)
PROC: 5A1955Z Respiratory Ventilation, Greater than 96 Consecutive Hours (ICD-10-PCS; 2019-03-22)
PROC: 0BH17EZ Insertion of Endotracheal Airway into Trachea, Via Natural or Artificial Opening (ICD-10-PCS; 2019-03-22)
PROC: 30233N1 Transfusion of Nonautologous Red Blood Cells into Peripheral Vein, Percutaneous Approach (ICD-10-PCS; 2019-03-22)
PROC: 0DNG0ZZ Release Left Large Intestine, Open Approach (ICD-10-PCS; 2019-03-22)
PROC: B548ZZA Ultrasonography of Superior Vena Cava, Guidance (ICD-10-PCS; 2019-03-22)
PROC: 0DN80ZZ Release Small Intestine, Open Approach (ICD-10-PCS; 2019-03-22)
PROC: 0DNN0ZZ Release Sigmoid Colon, Open Approach (ICD-10-PCS; 2019-03-22)
PROC: 0DNF0ZZ Release Right Large Intestine, Open Approach (ICD-10-PCS; 2019-03-22)
PROC: 05HM33Z Insertion of Infusion Device into Right Internal Jugular Vein, Percutaneous Approach (ICD-10-PCS; 2019-03-22)
PROC: 0DBN0ZZ Excision of Sigmoid Colon, Open Approach (ICD-10-PCS; 2019-03-22 15:46)
PROC: CT131ZZ Planar Nuclear Medicine Imaging of Kidneys, Ureters and Bladder using Technetium 99m (Tc-99m) (ICD-10-PCS; 2019-03-23)
PROC: 0WQF0ZZ Repair Abdominal Wall, Open Approach (ICD-10-PCS; 2019-03-24)
PROC: 0BC28ZZ Extirpation of Matter from Carina, Via Natural or Artificial Opening Endoscopic (ICD-10-PCS; 2019-03-26)
PROC: 0B938ZZ Drainage of Right Main Bronchus, Via Natural or Artificial Opening Endoscopic (ICD-10-PCS; 2019-03-26)
PROC: 0B948ZZ Drainage of Right Upper Lobe Bronchus, Via Natural or Artificial Opening Endoscopic (ICD-10-PCS; 2019-03-26)
PROC: 0W9G3ZZ Drainage of Peritoneal Cavity, Percutaneous Approach (ICD-10-PCS; 2019-04-01)
PROC: 5A09357 Assistance with Respiratory Ventilation, Less than 24 Consecutive Hours, Continuous Positive Airway Pressure (ICD-10-PCS; 2019-04-05)
PROC: 5A09357 Assistance with Respiratory Ventilation, Less than 24 Consecutive Hours, Continuous Positive Airway Pressure (ICD-10-PCS; 2019-04-07)
PROC: 5A09357 Assistance with Respiratory Ventilation, Less than 24 Consecutive Hours, Continuous Positive Airway Pressure (ICD-10-PCS; 2019-04-08)
PROC: 5A09457 Assistance with Respiratory Ventilation, 24-96 Consecutive Hours, Continuous Positive Airway Pressure (ICD-10-PCS; 2019-04-09)
PROC: 5A09357 Assistance with Respiratory Ventilation, Less than 24 Consecutive Hours, Continuous Positive Airway Pressure (ICD-10-PCS; 2019-04-12)
DX: K56.51 Intestinal adhesions [bands], with partial obstruction (principal); N17.0 Acute kidney failure with tubular necrosis; J96.01 Acute respiratory failure with hypoxia; J69.0 Pneumonitis due to inhalation of food and vomit; E87.1 Hypo-osmolality and hyponatremia; J98.11 Atelectasis; K94.03 Colostomy malfunction; Z99.11 Dependence on respirator [ventilator] status; N18.4 Chronic kidney disease, stage 4 (severe); E87.0 Hyperosmolality and hypernatremia; I12.9 Hypertensive chronic kidney disease with stage 1 through stage 4 chronic kidney disease, or unspecified chronic kidney disease; N73.6 Female pelvic peritoneal adhesions (postinfective); E86.0 Dehydration; K57.30 Diverticulosis of large intestine without perforation or abscess without bleeding; E03.9 Hypothyroidism, unspecified; E11.22 Type 2 diabetes mellitus with diabetic chronic kidney disease; G47.33 Obstructive sleep apnea (adult) (pediatric); E78.5 Hyperlipidemia, unspecified; J45.909 Unspecified asthma, uncomplicated; M06.9 Rheumatoid arthritis, unspecified; Z79.4 Long term (current) use of insulin; Z85.820 Personal history of malignant melanoma of skin; Z87.19 Personal history of other diseases of the digestive system; Z90.710 Acquired absence of both cervix and uterus; Z88.8 Allergy status to other drugs, medicaments and biological substances; Z91.018 Allergy to other foods; Z91.013 Allergy to seafood; Z53.31 Laparoscopic surgical procedure converted to open procedure; Z90.49 Acquired absence of other specified parts of digestive tract
CPT/HCPCS: 31645; 36415; 36600; 45330; 49083; 70450; 71045; 71046; 74018; 74176; 76000; 76775; 76937; 78707; 80047; 80048; 80053; 80202; 81001; 82570; 82803; 82810; 82945; 82948; 83036; 83605; 83690; 83735; 83880; 84100; 84132; 84134; 84145; 84156; 84300; 84439; 84443; 84478; 84484; 84540; 85018; 85025; 85610; 85730; 86885; 86900; 86901; 86920; 87040; 87070; 87077; 87081; 87186; 88307; 92508; 92616; 93005; 93306; 94002; 94003; 94640; 94660; 94668; 94760; 96374; 97110; 97161; 97530; 99152; 99153; 99285; A4314; A4421; A4618; A4620; A6253; A6258; A6446; A7000; A9562; C1758; C1769; C9113; G0378; J0330; J0360; J0690; J0692; J0694; J0696; J1170; J1265; J1644; J1650; J1815; J1940; J1956; J2001; J2175; J2185; J2250; J2370; J2405; J2543; J2704; J2765; J2920; J2930; J3010; J3370; J3475; J3480; J3490; J7030; J7040; J7050; J7060; J7120; J7614; J7626; P9016; P9045; P9047; Q9963; Q9967